=== PATIENT | male | born 1975 | race African-American/Black ===

== ENCOUNTER 2016-12-08 04:30 | Inpatient (IN) | payer OTHER ==
[~2016-12-08] VITALS: Ht 188 cm; Wt 91.6 kg
[2016-12-08 04:30] VITALS: BP 136/80
--- NOTE | 2016-12-08 04:30 | NUR ---
GRADY RUVALCABA. TAKEN TO BED 1
--- NOTE | 2016-12-08 04:30 | NUR ---
41 Y/O M BIBA W/C/O ALOC. PER EMS FOUND IN FRONT YARD BY FAMILY. PT HAS A HX OF DM. TWO ULCERS WITH DISCHARGE, ONE TO DORSAL R FOOT AND ONE TO PLANTAR R FOOT. PT CONTINUES ALTERED AND COMBATIVED.ALERT AND ORIENTED X 1, ABLE TO FOLLOW SIMPLE COMMANDS. VSS. ER MD AT BEDSIDE.
--- NOTE | 2016-12-08 04:36 | NUR ---
Dr. Mcgraw evaluating patient at bedside.
--- NOTE | 2016-12-08 04:40 | NUR ---
ATTEMPTED X 2 TO START AN IV LINE AND DRAW BLOOD. PT WAS RESISTANT AND COMPATIVE RAISING HIS FIST IN THE AIR. ER MD, LAB, CHARGE NURSE AT [facility]. REINFORCED EDUCATION ABOUT TREATMENT. PT REFUSED TO COMPLAY. PER ER MD IM MEDS TO BE GIVEN.
[2016-12-08] MEDS ORDERED: LORazepam 2 MG/ML VIAL IM ONE (05:05)
[2016-12-08] MEDS ORDERED: HALOPERIDOL IM 5 MG/ML VIAL IM ONE (05:05)
[2016-12-08] MEDS ORDERED: diphenhydrAMINE 50 MG/ML VIAL IM ONE (05:05)
[2016-12-08] MEDS ORDERED: HALOPERIDOL IM 5 MG/ML VIAL ONE (05:06)
--- NOTE | 2016-12-08 05:06 | NUR ---
X-Ray at bedside.
[2016-12-08] MEDS ORDERED: LORazepam 2 MG/ML VIAL ONE (05:08)
[2016-12-08] MEDS ORDERED: diphenhydrAMINE 50 MG/ML VIAL ONE (05:08)
[2016-12-08] MEDS ORDERED: ceFAZolin 1,000 MG VIAL ONE (05:39)
--- NOTE | 2016-12-08 05:46 | NUR ---
ADMINISTERED IV ABX TO IV LFA. PATIENT SLEEPING QUIETLY AT THIS TIME. NO S/S OF DISTRESS OR DISCOMFORT. WILL CONTINUE TO MONITOR AND REASSESS.
--- NOTE | 2016-12-08 06:35 | NUR ---
ATTEMPTED TO CATH PT WITH UNSUCESSFULL RESULTS, D/T UNABLE TO OBTAIN URINE FROM PT. WILL TRY AGAIN LATER.
--- NOTE | 2016-12-08 07:10 | NUR ---
Dr. Mcgraw re-evaluating patient at bedside.
[2016-12-08] MEDS ORDERED: NACL 0.9% 2,000 ML IV ONE (07:15)
--- NOTE | 2016-12-08 07:21 | NUR ---
Sherie whitman in EDM - 12/08/16 at 0722 by ROSMERY Pt report given to HERNANDEZ. Transfer of care at this time. PT STABLE, VSS.
--- NOTE | 2016-12-08 07:21 | NUR ---
Pt report given to KEISHA NG. Transfer of care at this time. PT INOCENCIA, REVAS.
--- NOTE | 2016-12-08 07:30 | NUR ---
PT SLEEPING AT THIS TIME. VSS. PT RESPONDS TO PAINFUL STIMULI. IV BOLUS HUNG WIDE OPEN TO 22G IV PER NOV.
[2016-12-08] MEDS ORDERED: HYDROcodone/APAP 5/325 MG 1 TAB TAB PO PRN (07:40)
[2016-12-08] MEDS ORDERED: DOCUSATE SODIUM 100 MG GELCAP PO PRN (07:40)
[2016-12-08] MEDS ORDERED: ACETAMINOPHEN 325 MG TAB PO PRN (07:40)
[2016-12-08] MEDS ORDERED: ONDANSETRON 4 MG/2 ML VIAL IVP PRN (07:40)
[2016-12-08] MEDS ORDERED: MORPHINE SULFATE 2 MG/ML SYR IVP PRN (07:40)
--- NOTE | 2016-12-08 08:14 | NUR ---
Patient will be admitted to care of DR. MCLEOD. Admited to [facility]. Will go to room 116-A. Belongings list completed. Report to KEISHA WELSH. PT'S BG 150 MG/DL.
[2016-12-08 08:30] VITALS: BP 134/78
--- NOTE | 2016-12-08 08:30 | NUR ---
RECEIVED REPORT FROM INSPECTOR FINAL ASSEMBLY CONVEYOR LINE, PT TRANSFERRED ONTO UNIT VIA GURNEY. PT IS SLEEPING. NO S/S OF ACUTE CARDIAC/RESPIRATORY DISTRESS OR DISCOMFORT. SAFETY MEASURES, FALL RISK PRECAUTION, AND CALL LIGHT IN PLACE. WILL INITIATE PLAN OF CARE AND CONTINUE TO MONITOR.
[2016-12-08] MEDS: NACL 0.9% 1,000 ML IV SCH ×2 (08:55→16:16)
[2016-12-08] MEDS: PANTOPRAZOLE 40 MG TABEC PO SCH (09:00)
[2016-12-08] MEDS ORDERED: SACCHAROMYCES 250 MG CAP PO SCH ×2 (09:45→21:00)
--- NOTE | 2016-12-08 11:00 | NUR ---
PT SLEEPING. NO S/S OF ACUTE DISTRESS OR DISCOMFORT. CALL LIGHT WITHIN REACH, WILL CONTINUE TO MONITOR.
[2016-12-08] MEDS ORDERED: MAG SULF 2000 MG/WATER PREMIX 50 ML IV SCH (11:30)
[2016-12-08] MEDS ORDERED: LACTOBACILLUS RHAMNOSUS GG 1 EACH CAP PO SCH (12:30)
--- NOTE | 2016-12-08 13:00 | NUR ---
PT SLEEPING. NO S/S OF ACUTE DISTRESS OR DISCOMFORT. CALL LIGHT WITHIN REACH, WILL CONTINUE TO MONITOR.
[2016-12-08 16:00] VITALS: BP 132/82
--- NOTE | 2016-12-08 16:00 | NUR ---
PT WOKE UP NEEDING TO URINATE, ABLE TO USE URINAL ON HIS OWN. PT QUICKLY WENT BACK TO SLEEP. URINE COLLECTED AND SENT TO LAB FOR UA. PT HAS NO S/S OF ACUTE DISTRESS OR DISCOMFORT. CALL LIGHT WITHIN REACH, WILL CONTINUE TO MONITOR.
--- NOTE | 2016-12-08 17:34 | NUR ---
PT SLEEPING. NO S/S OF ACUTE DISTRESS OR DISCOMFORT. CALL LIGHT WITHIN REACH, WILL CONTINUE TO MONITOR.
--- NOTE | 2016-12-08 19:04 | NUR ---
ENDORSED TO DIRECTOR SAFETY KEISHA LORA. PT HAS NO S/S OF ACUTE DISTRESS OR DISCOMFORT. PT IN STABLE CONDITION.
--- NOTE | 2016-12-08 19:10 | NUR ---
RECEIVED PT SLEEPING, AROUSABLE TO TOUCH, OPENS EYES BUT DROWSY, NO SIGNS OF DISTRESS, IVF INFUSING WELL, RT FOOT DRESSING DRY AND INTACT, SAFETY MEASURES IN PLACE, SIDE RAILS UP AND BED ALARM ON, CALL LIGHT WITHIN REACH.
--- NOTE | 2016-12-08 21:00 | NUR ---
PT AWAKE, AAOX4, DUE MEDICATIONS ADMINISTERED, DINNER TRY PROVIDED, CONSUMED 100%, VOIDING FREELY PER URINAL, WENT BACK TO SLEEP, SIDE RAILS UP AND BED ALARM ON, ALL NEEDS ATTENDED.
[2016-12-09] VITALS: BP 123/76
--- NOTE | 2016-12-09 | NUR ---
PT SLEEPING, NO SIGNS OF DISTRESS, VITAL SIGNS STABLE, IVF INFUSING WELL, CONTINUE TO MONITOR CLOSELY.
[2016-12-09] MEDS: NACL 0.9% 1,000 ML IV SCH ×3 (01:33→12:16)
--- NOTE | 2016-12-09 05:26 | NUR ---
PT SLEEPING, EASILY AROUSABLE, AM LABS DRAWN, BLOOD SUGAR CHECKED WITH 172 RESULT, PT LOOKING FOR HIS CELLPHONE, NONE FOUND ON HIS BELONGINGS, PT GOT UPSET, DIALED THE NUMBER HE GAVE FOR MOLDING FITTER [id number] BUT NO ANSWER, WILL TRY AGAIN LATER, KATELIN RAMIREZ PROVIDED PER REQUEST, PT WENT TO SLEEP AFTER, MONITORED CLOSELY.
[2016-12-09] MEDS ORDERED: DEXTROSE 50% 50 ML SYR IVP PRN (05:55)
--- NOTE | 2016-12-09 06:25 | NUR ---
DR CABALLERO AND DR HAGER SEEN THE PT, WITH ORDER FOR SLIDING SCALE, CALLED ON [facility]ARM[facility] FOR VERIFICATION.
[2016-12-09] MEDS: BLOOD GLUCOSE MONITORING 1 DEV DEV FS SCH ×2 (06:47→12:07)
[2016-12-09] MEDS: INSULIN LISPRO SLIDING SCALE 100 UNITS/ML VIAL SUBQ PRN ×2 (06:50→12:22)
--- NOTE | 2016-12-09 07:15 | NUR ---
PT SLEEPING, NO SIGNS OF DISTRESS, REPORT GIVEN TO RN MURALI FOR CONTINUITY OF CARE.
--- NOTE | 2016-12-09 07:20 | NUR ---
RECEIVED REPORT FROM DAY LIGHT RELIEF OPERATOR RN. PT IS SLEEPING. NO S/S OF ACUTE CARDIAC/RESPIRATORY DISTRESS OR DISCOMFORT. SAFETY MEASURES AND FALL RISK PRECAUTION IN PLACE. CALL LIGHT WITHIN REACH. WILL CONTINUE PLAN OF CARE AND CONTINUE TO MONITOR.
[2016-12-09 08:00] VITALS: BP 140/82
--- NOTE | 2016-12-09 08:55 | NUR ---
FAXED INITIAL REVIEW TO [facility] [phone] PHONE [phone]
[2016-12-09] MEDS ORDERED: LACTOBACILLUS RHAMNOSUS GG 1 EACH CAP PO SCH (09:00)
[2016-12-09] MEDS: PANTOPRAZOLE 40 MG TABEC PO SCH (09:05)
--- NOTE | 2016-12-09 10:22 | NUR ---
PT IS SLEEPING. PT REFUSED HEPARIN. PROVIDED TEACHING ON IMPORTANCE OF HEPARIN, PT STILL REFUSED. PT IS WITHDRAWN, ANSWERING ONLY YES OR NO, OR HEAD NODS. NO S/S OF ACUTE DISTRESS OR DISCOMFORT. CALL LIGHT WITHIN REACH, WILL CONTINUE TO MONITOR.
--- NOTE | 2016-12-09 13:45 | NUR ---
PT WAS SEEN WALKING OUT OF THE HOSPITAL, RN AND CHARGE NURSE ABLE TO STOP THE PATIENT OUTSIDE IN FRONT OF THE HOSPITAL. PT STATES HE CAN NOT STAY AT THE HOSPITAL AND "NEED TO TAKE CARE OF BUSINESS IN THE [place]" AND DOES NOT HAVE TIME TO SIGN AMA. ARM BANDS REMOVED, IV REMOVED AND INTACT. PT HAS NO S/S OF ACUTE DISTRESS OR DISCOMFORT. PT IN STABLE CONDITION. PT PROCEEDED TO THE PARKING LOT TO BE PICKED BY A FAMILY MEMBER. PT ELOPED.
--- NOTE | 2016-12-12 09:04 | NUR ---
WOUND CARE NOTES: UNABLE TO SEE PATIENT, PATIENT ELOPED 12/09/16
== END 2016-12-09 13:45 | disposition left against medical advice (07) | DRG 344 ==
LOC: MED 04:30 → MTU 07:24
PROVIDERS: ADMIT Family Medicine; ATTEND Family Medicine
DX: E11.69 Type 2 diabetes mellitus with other specified complication (principal); M86.8X7 Other osteomyelitis, ankle and foot; E43 Unspecified severe protein-calorie malnutrition; G92 Toxic encephalopathy; E11.621 Type 2 diabetes mellitus with foot ulcer; M00.9 Pyogenic arthritis, unspecified; M84.474A Pathological fracture, right foot, initial encounter for fracture; E11.65 Type 2 diabetes mellitus with hyperglycemia; L03.115 Cellulitis of right lower limb; L97.419 Non-pressure chronic ulcer of right heel and midfoot with unspecified severity; E86.0 Dehydration; E83.42 Hypomagnesemia; E83.51 Hypocalcemia; F15.129 Other stimulant abuse with intoxication, unspecified; D50.9 Iron deficiency anemia, unspecified; L89.899 Pressure ulcer of other site, unspecified stage; Z89.412 Acquired absence of left great toe; Z68.25 Body mass index [BMI] 25.0-25.9, adult; Z89.411 Acquired absence of right great toe; Z89.421 Acquired absence of other right toe(s)

== ENCOUNTER 2023-05-24 10:01 | Inpatient (IN) | payer MEDICAID ==
[~2023-05-24] VITALS: Ht 180.3 cm; Wt 86.2 kg
[2023-05-24] VITALS (7 sets, daily range): BP systolic 163–184; BP diastolic 79–110; PULSE 97–102; RESP 18–20; TEMP 98; O2SAT 99–100
[~2023-05-24 10:01] MED LIST: CALC667C12 PO; NIFE60TE5 PO; SULF-58 PO
[2023-05-24] MEDS ORDERED: CALCIUM CHLORIDE 10% 100 MG/ML SYR IVP ONE (10:30)
[2023-05-24 13:50] LABS: BASOPHILS # (AUTO) 0.1 K/uL (0.00-0.22); BASOPHILS % (AUTO) 1.1 % (0.0-2.0); EOSINOPHILS # (AUTO) 0.1 K/uL (0-0.4); EOSINOPHILS % (AUTO) 1.2 % (0.0-4.0); HEMATOCRIT 28.2 % (36-52); LYMPHOCYTES % (AUTO) 13.8 % (20.5-51.1); MEAN CORPUSCULAR HEMOGLOBIN 27 pg (27-31); MEAN CORPUSCULAR HGB CONC 32 g/dL (33-37); MEAN CORPUSCULAR VOLUME 83.6 fL (80-94); MONOCYTES # (AUTO) 0.6 K/uL (0.8-1.0); MONOCYTES % (AUTO) 8.1 % (1.7-9.3); NEUTROPHILS # (AUTO) 5.5 K/uL (1.8-7.7); NEUTROPHILS % (AUTO) 75.8 % (42.2-75.2); PLATELET COUNT (AUTO) 191 K/uL (140-450); RED BLOOD CELL COUNT(AUTO) 3.37 MIL/uL (4.20-6.10); RED CELL DISTRIBUTION WIDTH 16.7 % (11.6-13.7); WHITE BLOOD COUNT (AUTO) 7.2 K/uL (4.8-10.8)
[2023-05-24 14:14] LABS: ALANINE AMINOTRANSFERASE 35 U/L (12-78); ALBUMIN 3.4 g/dL (3.4-5.0); ALKALINE PHOSPHATASE 85 U/L (50-136); ANION GAP 30.2 (8-16); ASPARTATE AMINOTRANSFERASE 36 U/L (15-37); CALCIUM 7.3 mg/dL (8.5-10.1); CARBON DIOXIDE 15.4 mmol/L (21-32); CHLORIDE 99 mmol/L (98-107); GFR ARICAN-AMERICAN 3 mL/min (>90); GFR NON ARICAN-AMERICAN 2 mL/min (>90); GLUCOSE 68 mg/dL (74-106); LIPASE 95 U/L (73-393); SODIUM SERUM 136 mmol/L (136-145); TOTAL BILIRUBIN 0.3 mg/dL (0.0-1.0); TOTAL PROTEIN, SERUM 8.8 g/dL (6.4-8.2)
[2023-05-24 14:20] LABS: POTASSIUM 8.6 mmol/L (3.5-5.1); UREA NITROGEN, BLOOD 129 mg/dL (7-18)
[2023-05-24] MEDS ORDERED: ENALAPRILAT 2.5 MG/2 ML VIAL IVP ONE (16:25)
[2023-05-24] MEDS ORDERED: DOCUSATE SODIUM 100 MG GELCAP PO PRN (19:45)
[2023-05-24] MEDS ORDERED: DEXTROSE 50% 50 ML SYR IVP PRN (19:45)
[2023-05-24] MEDS ORDERED: ZOLPIDEM 5 MG TAB PO PRN (19:45)
[2023-05-24] MEDS ORDERED: guaiFENesin DM 200/20 MG-10 ML 10 ML UDC PO PRN (19:45)
[2023-05-24] MEDS ORDERED: ONDANSETRON 4 MG/2 ML VIAL IM/IVP PRN (19:45)
[2023-05-24] MEDS ORDERED: INSULIN LISPRO SLIDING SCALE 100 UNITS/ML VIAL SUBQ PRN (19:45)
[2023-05-24] MEDS ORDERED: POTASSIUM CHLORIDE 10 MEQ TABER PO PRN (19:45)
[2023-05-24 20:14] LABS: INR 0.99 (0.8-1.2); PARTIAL THROMBOPLASTIN TIME 32.3 secs (22-35.6); PROTHROMBIN TIME 10.4 secs (10.8-13.4)
[2023-05-24 21:10] LABS: CHOL/HDL RATIO 1.3 (1-4.5); FREE T4 (FREE THYROXINE) 0.94 ng/dL (0.76-1.46); MAGNESIUM 3.2 mg/dL (1.8-2.4); THYROID STIMULATING HORMONE 3.85 uIU/mL (0.34-3.74)
[2023-05-24] MEDS: BLOOD GLUCOSE MONITORING 1 DEV DEV FS SCH (21:31)
[2023-05-24 21:32] LABS: PHOSPHORUS 16.7 mg/dL (2.5-4.9)
[2023-05-24] MEDS ORDERED: CALCIUM ACETATE 667 MG TAB PO ONE (23:50)
[2023-05-25] VITALS (9 sets, daily range): BP systolic 145–188; BP diastolic 96–109; PULSE 88–107; RESP 18–20; TEMP 97.7–98.8; O2SAT 95–99
[2023-05-25] MEDS: hydrALAZINE 20 MG/ML VIAL IVP PRN ×3 (01:06→23:23)
[2023-05-25] MEDS: ACETAMINOPHEN 325 MG TAB PO PRN (01:07)
[2023-05-25] MEDS: BLOOD GLUCOSE MONITORING 1 DEV DEV FS SCH ×4 (06:10→21:19)
[2023-05-25] MEDS: HYDROcodone/APAP 7.5/325 MG 1 TAB PO PRN ×2 (06:37→21:15)
[2023-05-25 06:39] LABS: BASOPHILS # (AUTO) 0.1 K/uL (0.00-0.22); BASOPHILS % (AUTO) 1.2 % (0.0-2.0); EOSINOPHILS # (AUTO) 0.1 K/uL (0-0.4); EOSINOPHILS % (AUTO) 2.2 % (0.0-4.0); HEMATOCRIT 26.7 % (36-52); HEMOGLOBIN 8.7 g/dL (12.0-18.0); LYMPHOCYTES # (AUTO) 0.6 K/uL (2.0-11.5); LYMPHOCYTES % (AUTO) 13.3 % (20.5-51.1); MEAN CORPUSCULAR HEMOGLOBIN 27 pg (27-31); MEAN CORPUSCULAR HGB CONC 33 g/dL (33-37); MEAN CORPUSCULAR VOLUME 82.6 fL (80-94); MONOCYTES # (AUTO) 0.6 K/uL (0.8-1.0); MONOCYTES % (AUTO) 11.5 % (1.7-9.3); NEUTROPHILS # (AUTO) 3.5 K/uL (1.8-7.7); NEUTROPHILS % (AUTO) 71.8 % (42.2-75.2); PLATELET COUNT (AUTO) 169 K/uL (140-450); RED BLOOD CELL COUNT(AUTO) 3.23 MIL/uL (4.20-6.10); RED CELL DISTRIBUTION WIDTH 16.7 % (11.6-13.7); WHITE BLOOD COUNT (AUTO) 4.9 K/uL (4.8-10.8)
[2023-05-25 06:53] LABS: ANION GAP 21.7 (8-16); CALCIUM 8.3 mg/dL (8.5-10.1); CARBON DIOXIDE 22.5 mmol/L (21-32); POTASSIUM 5.2 mmol/L (3.5-5.1)
[2023-05-25 06:56] LABS: CREATININE 17.7 mg/dL (0.6-1.3)
[2023-05-25] MEDS: CALCIUM ACETATE 667 MG TAB PO SCH ×3 (09:03→17:00)
[2023-05-25] MEDS: NIFEdipine 60 MG TABER PO SCH (09:03)
[2023-05-25] MEDS: PANTOPRAZOLE 40 MG TABEC PO SCH (09:04)
[2023-05-25] MEDS: ALUMINUM HYDROXIDE 64 MG/ML BOTTLE PO SCH ×2 (13:00→17:00)
[2023-05-25 14:04] LABS: BARBITURATE, URINE NEGATIVE ng/ml (NEG <=200)
[2023-05-25 14:05] LABS: AMPHETAMINE, URINE POSITIVE ng/ml (NEG <=1000); BENZODIAZEPINE, URINE NEGATIVE ng/mL (NEG <=200); CANNABINOID, URINE NEGATIVE ng/mL (NEG <=50); COCAINE, URINE NEGATIVE ng/mL (NEG <=300); OPIATE, URINE NEGATIVE ng/mL (NEG <=2000); PHENCYCLIDINE SCREEN,URINE NEGATIVE ng/mL (NEG <=25)
[2023-05-26 04:00] VITALS: BP 157/100; PULSE 101; PULSE 94; RESP 18; TEMP 98.8; O2SAT 96
[2023-05-26] MEDS: ACETAMINOPHEN 325 MG TAB PO PRN (04:42)
[2023-05-26] MEDS: hydrALAZINE 20 MG/ML VIAL IVP PRN (05:52)
[2023-05-26 05:56] LABS: BASOPHILS # (AUTO) 0.1 K/uL (0.00-0.22); BASOPHILS % (AUTO) 1.2 % (0.0-2.0); EOSINOPHILS # (AUTO) 0.1 K/uL (0-0.4); EOSINOPHILS % (AUTO) 1.3 % (0.0-4.0); HEMOGLOBIN 9.2 g/dL (12.0-18.0); LYMPHOCYTES # (AUTO) 0.8 K/uL (2.0-11.5); LYMPHOCYTES % (AUTO) 17.7 % (20.5-51.1); MEAN CORPUSCULAR HEMOGLOBIN 27 pg (27-31); MEAN CORPUSCULAR HGB CONC 33 g/dL (33-37); MEAN CORPUSCULAR VOLUME 82.7 fL (80-94); MONOCYTES # (AUTO) 0.6 K/uL (0.8-1.0); MONOCYTES % (AUTO) 12.9 % (1.7-9.3); NEUTROPHILS # (AUTO) 3.1 K/uL (1.8-7.7); NEUTROPHILS % (AUTO) 66.9 % (42.2-75.2); PLATELET COUNT (AUTO) 151 K/uL (140-450); RED BLOOD CELL COUNT(AUTO) 3.39 MIL/uL (4.20-6.10); RED CELL DISTRIBUTION WIDTH 15.7 % (11.6-13.7); WHITE BLOOD COUNT (AUTO) 4.6 K/uL (4.8-10.8)
[2023-05-26 05:57] LABS: ANION GAP 17.8 (8-16); CALCIUM 8.5 mg/dL (8.5-10.1); CARBON DIOXIDE 24.8 mmol/L (21-32); POTASSIUM 4.6 mmol/L (3.5-5.1)
[2023-05-26 06:16] LABS: CREATININE 13.6 mg/dL (0.6-1.3)
[2023-05-26] MEDS: BLOOD GLUCOSE MONITORING 1 DEV DEV FS SCH (06:44)
[2023-05-26 06:52] VITALS: BP 168/99; PULSE 101
[2023-05-26 08:00] VITALS: RESP 18; TEMP 96.7; O2SAT 97
[2023-05-26 08:08] LABS: T4 (THYROXINE) 6.4 ug/dL (4.5-12.0)
[2023-05-26] MEDS: ALUMINUM HYDROXIDE 64 MG/ML BOTTLE PO SCH (08:20)
[2023-05-26] MEDS: NIFEdipine 60 MG TABER PO SCH (08:50)
[2023-05-26] MEDS: CALCIUM ACETATE 667 MG TAB PO SCH (08:51)
[2023-05-26] MEDS: PANTOPRAZOLE 40 MG TABEC PO SCH (08:51)
[2023-05-26] MEDS ORDERED: TRA200 PO (10:56)
[2023-05-26] MEDS ORDERED: SULF-58 PO (10:58)
[2023-05-26] MEDS ORDERED: GAUZE TP SCH (13:00)
[2023-05-26] MEDS ORDERED: LABETALOL 200 MG TAB PO SCH (21:00)
== END 2023-05-26 14:00 | disposition home health service (06) | DRG 194 ==
LOC: MED 10:01 → MTU 14:38
PROVIDERS: ADMIT Family Medicine; ATTEND Family Medicine
PROC: 5A1D70Z Performance of Urinary Filtration, Intermittent, Less than 6 Hours Per Day (ICD-10-PCS; principal; 2023-05-24)
PROC: 02HV33Z Insertion of Infusion Device into Superior Vena Cava, Percutaneous Approach (ICD-10-PCS; 2023-05-24)
PROC: B548ZZA Ultrasonography of Superior Vena Cava, Guidance (ICD-10-PCS; 2023-05-24)
PROC: 5A1D70Z Performance of Urinary Filtration, Intermittent, Less than 6 Hours Per Day (ICD-10-PCS; 2023-05-25)
DX: I13.2 Hypertensive heart and chronic kidney disease with heart failure and with stage 5 chronic kidney disease, or end stage renal disease (principal); N17.0 Acute kidney failure with tubular necrosis; J96.01 Acute respiratory failure with hypoxia; D63.8 Anemia in other chronic diseases classified elsewhere; E83.39 Other disorders of phosphorus metabolism; N18.6 End stage renal disease; E11.621 Type 2 diabetes mellitus with foot ulcer; I50.43 Acute on chronic combined systolic (congestive) and diastolic (congestive) heart failure; E87.5 Hyperkalemia; E11.22 Type 2 diabetes mellitus with diabetic chronic kidney disease; Z99.2 Dependence on renal dialysis; Z91.199 Patient's noncompliance with other medical treatment and regimen due to unspecified reason; Z89.511 Acquired absence of right leg below knee; Z59.00 Homelessness unspecified; Z91.148 Patient's other noncompliance with medication regimen for other reason; Z59.01 Sheltered homelessness
CPT/HCPCS: 36415; 71045; 73630; 80048; 80053; 80305; 82150; 82948; 83036; 83690; 83735; 83880; 84100; 84436; 84439; 84443; 84479; 84484; 85025; 85610; 85730; 87081; 96374; 99285; J0360; J1644; J1815; J3490; Q0092

== ENCOUNTER 2023-06-03 17:34 | Emergency (ER) | payer MEDICAID ==
[~2023-06-03] VITALS: Ht 180.3 cm; Wt 86.2 kg
[~2023-06-03 17:34] MED LIST changes: +TRA200 PO
[2023-06-03 17:49] VITALS: BP 150/75; PULSE 122; RESP 22; TEMP 97.3; O2SAT 98
[2023-06-03 19:19] VITALS: BP 150/75; PULSE 98; RESP 22; TEMP 97.3; O2SAT 98
== END 2023-06-03 19:23 | disposition home or self-care (01) ==
LOC: MED 17:34
DX: M79.605 Pain in left leg (principal); E11.22 Type 2 diabetes mellitus with diabetic chronic kidney disease; I13.2 Hypertensive heart and chronic kidney disease with heart failure and with stage 5 chronic kidney disease, or end stage renal disease; I50.9 Heart failure, unspecified; N18.6 End stage renal disease; Z99.2 Dependence on renal dialysis; Z79.899 Other long term (current) drug therapy; Z79.2 Long term (current) use of antibiotics
CPT/HCPCS: 73552; 73630; 99284; Q0092

== ENCOUNTER 2023-06-10 01:05 | Inpatient (IN) | payer MEDICAID ==
[~2023-06-10] VITALS: Ht 177.8 cm; Wt 97.5 kg
[2023-06-10] VITALS (9 sets, daily range): BP systolic 148–176; BP diastolic 79–86; PULSE 84–119; RESP 14–20; TEMP 97.2–97.6; O2SAT 94–100
[2023-06-10 02:36] LABS: BASOPHILS % (AUTO) 0.6 % (0.0-2.0); EOSINOPHILS # (AUTO) 0.2 K/uL (0-0.4); EOSINOPHILS % (AUTO) 2.2 % (0.0-4.0); HEMATOCRIT 20.6 % (36-52); LYMPHOCYTES # (AUTO) 1.2 K/uL (2.0-11.5); LYMPHOCYTES % (AUTO) 15.3 % (20.5-51.1); MEAN CORPUSCULAR HEMOGLOBIN 27 pg (27-31); MEAN CORPUSCULAR HGB CONC 33 g/dL (33-37); MEAN CORPUSCULAR VOLUME 83.6 fL (80-94); MONOCYTES # (AUTO) 0.5 K/uL (0.8-1.0); MONOCYTES % (AUTO) 6.6 % (1.7-9.3); NEUTROPHILS # (AUTO) 5.8 K/uL (1.8-7.7); NEUTROPHILS % (AUTO) 75.3 % (42.2-75.2); PLATELET COUNT (AUTO) 177 K/uL (140-450); RED BLOOD CELL COUNT(AUTO) 2.47 MIL/uL (4.20-6.10); RED CELL DISTRIBUTION WIDTH 16.1 % (11.6-13.7); WHITE BLOOD COUNT (AUTO) 7.6 K/uL (4.8-10.8)
[2023-06-10 02:46] LABS: HEMOGLOBIN 6.7 g/dL (12.0-18.0)
[2023-06-10 02:47] LABS: ALBUMIN 3.5 g/dL (3.4-5.0); ANION GAP 30.5 (8-16); CALCIUM 7.3 mg/dL (8.5-10.1); CARBON DIOXIDE 15.4 mmol/L (21-32); TOTAL BILIRUBIN 0.3 mg/dL (0.0-1.0); TOTAL PROTEIN, SERUM 8.9 g/dL (6.4-8.2)
[2023-06-10 02:52] LABS: LACTIC ACID 0.4 mmol/L (0.4-2.0); POTASSIUM 7.9 mmol/L (3.5-5.1)
[2023-06-10] MEDS ORDERED: CALCIUM CHLORIDE 10% 100 MG/ML SYR IVP ONE (02:55)
[2023-06-10] MEDS ORDERED: DEXTROSE 50% 50 ML SYR IVP ONE ×2 (02:55→06:20)
[2023-06-10] MEDS ORDERED: INSULIN REGULAR, HUMAN 100 UNIT/ML VIAL IV ONE (02:55)
[2023-06-10] MEDS ORDERED: SODIUM BICARBONATE 8.4% PFS 50 MEQ/50 ML SYR IVP ONE (02:55)
[2023-06-10] MEDS ORDERED: LORazepam 2 MG/ML VIAL IVP ONE (04:30)
[2023-06-10] MEDS ORDERED: INSULIN LISPRO SLIDING SCALE 100 UNITS/ML VIAL SUBQ PRN (05:50)
[2023-06-10 09:04] LABS: ALBUMIN 3.3 g/dL (3.4-5.0); ANION GAP 30.8 (8-16); CALCIUM 7.7 mg/dL (8.5-10.1); TOTAL BILIRUBIN 0.3 mg/dL (0.0-1.0); TOTAL PROTEIN, SERUM 8.6 g/dL (6.4-8.2)
[2023-06-10 09:08] LABS: POTASSIUM 7.8 mmol/L (3.5-5.1)
[2023-06-10 09:09] LABS: CREATININE 21.6 mg/dL (0.6-1.3)
[2023-06-10] MEDS: SODIUM POLYSTYRENE 15 GM/60 ML UDBTL PO SCH ×2 (10:43→14:00)
[2023-06-10] MEDS: EPOETIN ALFA 10,000 UNITS/ML VIAL SUBQ SCH (12:00)
[2023-06-10] MEDS: ALBUTEROL 0.083% 2.5 MG/3 ML NEBU INH SCH ×2 (12:16→15:11)
[2023-06-10] MEDS ORDERED: ALBUTEROL 0.083% 2.5 MG/3 ML NEBU INH SCH ×2 (15:07→17:15)
[2023-06-10] MEDS ORDERED: DEXTROSE 50% 50 ML SYR IVP PRN (16:45)
[2023-06-10 16:53] LABS: ALBUMIN 3.2 g/dL (3.4-5.0); ANION GAP 26.1 (8-16); CALCIUM 7.5 mg/dL (8.5-10.1); CARBON DIOXIDE 18.3 mmol/L (21-32); POTASSIUM 5.4 mmol/L (3.5-5.1); TOTAL BILIRUBIN 0.5 mg/dL (0.0-1.0); TOTAL PROTEIN, SERUM 8.5 g/dL (6.4-8.2)
[2023-06-10 16:56] LABS: CREATININE 16.4 mg/dL (0.6-1.3)
[2023-06-10] MEDS: BLOOD GLUCOSE MONITORING 1 DEV DEV FS SCH ×2 (20:56→21:00)
[2023-06-10 21:35] LABS: ALBUMIN 3.2 g/dL (3.4-5.0); ANION GAP 21.4 (8-16); CALCIUM 7.5 mg/dL (8.5-10.1); POTASSIUM 5.4 mmol/L (3.5-5.1); TOTAL BILIRUBIN 0.4 mg/dL (0.0-1.0); TOTAL PROTEIN, SERUM 8.6 g/dL (6.4-8.2)
[2023-06-10 21:42] LABS: CREATININE 17.3 mg/dL (0.6-1.3)
[2023-06-11] VITALS (8 sets, daily range): BP systolic 138–150; BP diastolic 74–90; PULSE 86–102; RESP 18–19; TEMP 96.3–97.9; O2SAT 93–98
[2023-06-11 06:26] LABS: BASOPHILS % (AUTO) 0.4 % (0.0-2.0); EOSINOPHILS # (AUTO) 0.2 K/uL (0-0.4); EOSINOPHILS % (AUTO) 2.6 % (0.0-4.0); HEMATOCRIT 25.6 % (36-52); HEMOGLOBIN 8.4 g/dL (12.0-18.0); LYMPHOCYTES # (AUTO) 0.7 K/uL (2.0-11.5); LYMPHOCYTES % (AUTO) 10.6 % (20.5-51.1); MEAN CORPUSCULAR HEMOGLOBIN 27 pg (27-31); MEAN CORPUSCULAR HGB CONC 33 g/dL (33-37); MEAN CORPUSCULAR VOLUME 81.9 fL (80-94); MONOCYTES # (AUTO) 0.6 K/uL (0.8-1.0); MONOCYTES % (AUTO) 9.4 % (1.7-9.3); NEUTROPHILS # (AUTO) 4.9 K/uL (1.8-7.7); PLATELET COUNT (AUTO) 150 K/uL (140-450); RED BLOOD CELL COUNT(AUTO) 3.12 MIL/uL (4.20-6.10); RED CELL DISTRIBUTION WIDTH 15.5 % (11.6-13.7); WHITE BLOOD COUNT (AUTO) 6.3 K/uL (4.8-10.8)
[2023-06-11 06:38] LABS: ANION GAP 23.3 (8-16); CALCIUM 7.8 mg/dL (8.5-10.1)
[2023-06-11 06:47] LABS: CREATININE 17.6 mg/dL (0.6-1.3)
[2023-06-11 06:48] LABS: POTASSIUM 6.3 mmol/L (3.5-5.1)
[2023-06-11] MEDS: BLOOD GLUCOSE MONITORING 1 DEV DEV FS SCH ×4 (07:30→21:39)
[2023-06-11] MEDS: CALCIUM ACETATE 667 MG TAB PO SCH ×3 (09:53→17:00)
[2023-06-11] MEDS: NIFEdipine 60 MG TABER PO SCH (09:53)
[2023-06-11] MEDS: ACETAMINOPHEN EXTRA STRENGTH 500 MG TAB PO PRN (10:24)
[2023-06-11] MEDS: LORazepam 2 MG/ML VIAL IVP PRN (12:39)
[2023-06-11] MEDS: INSULIN LISPRO SLIDING SCALE 100 UNITS/ML VIAL SUBQ PRN ×2 (21:31→21:39)
[2023-06-12] VITALS (7 sets, daily range): BP systolic 142–162; BP diastolic 80–90; PULSE 79–109; RESP 17–20; TEMP 96.7–98; O2SAT 95–100
[2023-06-12] MEDS: ACETAMINOPHEN EXTRA STRENGTH 500 MG TAB PO PRN ×2 (03:11→23:47)
[2023-06-12] MEDS: BLOOD GLUCOSE MONITORING 1 DEV DEV FS SCH ×4 (06:59→22:20)
[2023-06-12] MEDS ORDERED: MORPHINE SULFATE 2 MG/ML SYR IVP PRN (08:00)
[2023-06-12] MEDS: NIFEdipine 60 MG TABER PO SCH (09:04)
[2023-06-12] MEDS: CALCIUM ACETATE 667 MG TAB PO SCH ×3 (09:04→16:58)
[2023-06-12] MEDS: MORPHINE SULFATE 2 MG/ML SYR IM PRN ×2 (09:29→17:00)
[2023-06-12 11:18] LABS: APPEARANCE,URINE CLEAR (CLEAR); BILIRUBIN,URINE NEGATIVE (NEGATIVE); BLOOD, URINE 2+ (NEGATIVE); COLOR,URINE YELLOW (YELLOW); LEUKOCYTE ESTERASE ,URINE 1+ (NEGATIVE); NITRITE, URINE NEGATIVE (NEGATIVE); PH,URINE 8.5 (5.0-9.0); PROTEIN,URINE 2+ (NEGATIVE); UGLUCOSE 1+ (NEGATIVE); UROBILINOGEN,URINE 0.2 EU/dL (0.2 - 1)
[2023-06-12] MEDS: LORazepam 2 MG/ML VIAL IVP PRN (11:33)
[2023-06-12 12:02] LABS: BASOPHILS # (AUTO) 0.1 K/uL (0.00-0.22); BASOPHILS % (AUTO) 0.8 % (0.0-2.0); EOSINOPHILS # (AUTO) 0.1 K/uL (0-0.4); EOSINOPHILS % (AUTO) 1.1 % (0.0-4.0); HEMATOCRIT 26.8 % (36-52); HEMOGLOBIN 8.6 g/dL (12.0-18.0); LYMPHOCYTES # (AUTO) 0.9 K/uL (2.0-11.5); LYMPHOCYTES % (AUTO) 7.6 % (20.5-51.1); MEAN CORPUSCULAR HEMOGLOBIN 26 pg (27-31); MEAN CORPUSCULAR HGB CONC 32 g/dL (33-37); MONOCYTES # (AUTO) 0.8 K/uL (0.8-1.0); MONOCYTES % (AUTO) 7.1 % (1.7-9.3); NEUTROPHILS # (AUTO) 9.7 K/uL (1.8-7.7); NEUTROPHILS % (AUTO) 83.4 % (42.2-75.2); PLATELET COUNT (AUTO) 146 K/uL (140-450); RED BLOOD CELL COUNT(AUTO) 3.26 MIL/uL (4.20-6.10); RED CELL DISTRIBUTION WIDTH 16.2 % (11.6-13.7); WHITE BLOOD COUNT (AUTO) 11.6 K/uL (4.8-10.8)
[2023-06-12 12:13] LABS: ANION GAP 23.6 (8-16); CARBON DIOXIDE 22.6 mmol/L (21-32)
[2023-06-12 12:16] LABS: POTASSIUM 6.2 mmol/L (3.5-5.1)
[2023-06-12 12:17] LABS: CREATININE 15.3 mg/dL (0.6-1.3)
[2023-06-12 12:26] LABS: RBC,URINE 11-20 (MOD) /HPF (0-5)
[2023-06-12 12:27] LABS: BACTERIA,URINE 2+ /HPF (None Seen); SQUAMOUS EPITHELIAL CELL,UR 0-3 (FEW) /LPF (0-3 (FEW)); WBC,URINE 16-25 (MOD) /HPF (0-5)
[2023-06-12 12:50] LABS: AMPHETAMINE, URINE NEGATIVE ng/ml (NEG <=1000); BARBITURATE, URINE NEGATIVE ng/ml (NEG <=200); BENZODIAZEPINE, URINE NEGATIVE ng/mL (NEG <=200)
[2023-06-12 12:51] LABS: CANNABINOID, URINE NEGATIVE ng/mL (NEG <=50); COCAINE, URINE NEGATIVE ng/mL (NEG <=300); OPIATE, URINE NEGATIVE ng/mL (NEG <=2000); PHENCYCLIDINE SCREEN,URINE NEGATIVE ng/mL (NEG <=25)
[2023-06-12] MEDS: GAUZE TP SCH (12:59)
[2023-06-12] MEDS ORDERED: ALTEPLASE 100 MG VIAL IV ONE (15:00)
[2023-06-12] MEDS ORDERED: ALTEPLASE 2 MG VIAL MC SCH (15:04)
[2023-06-12] MEDS ORDERED: WATER STERILE 20 ML MC ONE (15:09)
[2023-06-12] MEDS ORDERED: LORazepam 2 MG/ML VIAL IM/IVP PRN (18:10)
[2023-06-12] MEDS ORDERED: MORPHINE SULFATE 2 MG/ML SYR IM/IVP PRN (18:10)
[2023-06-13] VITALS (11 sets, daily range): BP systolic 115–157; BP diastolic 61–90; PULSE 102–114; RESP 16–20; TEMP 97.6–98.6; O2SAT 93–100
[2023-06-13] MEDS: BLOOD GLUCOSE MONITORING 1 DEV DEV FS SCH ×4 (06:17→20:44)
[2023-06-13 06:38] LABS: BASOPHILS % (AUTO) 0.4 % (0.0-2.0); EOSINOPHILS # (AUTO) 0.1 K/uL (0-0.4); EOSINOPHILS % (AUTO) 0.8 % (0.0-4.0); HEMATOCRIT 27.8 % (36-52); HEMOGLOBIN 9.1 g/dL (12.0-18.0); LYMPHOCYTES % (AUTO) 12.1 % (20.5-51.1); MEAN CORPUSCULAR HEMOGLOBIN 27 pg (27-31); MEAN CORPUSCULAR HGB CONC 33 g/dL (33-37); MONOCYTES # (AUTO) 0.8 K/uL (0.8-1.0); MONOCYTES % (AUTO) 9.8 % (1.7-9.3); NEUTROPHILS # (AUTO) 6.3 K/uL (1.8-7.7); NEUTROPHILS % (AUTO) 76.9 % (42.2-75.2); PLATELET COUNT (AUTO) 162 K/uL (140-450); RED BLOOD CELL COUNT(AUTO) 3.35 MIL/uL (4.20-6.10); RED CELL DISTRIBUTION WIDTH 15.7 % (11.6-13.7); WHITE BLOOD COUNT (AUTO) 8.2 K/uL (4.8-10.8)
[2023-06-13 06:53] LABS: ANION GAP 18.6 (8-16); CALCIUM 8.6 mg/dL (8.5-10.1); CARBON DIOXIDE 26.1 mmol/L (21-32); POTASSIUM 4.7 mmol/L (3.5-5.1)
[2023-06-13 06:58] LABS: CREATININE 11.8 mg/dL (0.6-1.3)
[2023-06-13] MEDS: levoFLOXacin 250 MG TAB PO SCH (08:31)
[2023-06-13] MEDS: NIFEdipine 60 MG TABER PO SCH (08:31)
[2023-06-13] MEDS: CALCIUM ACETATE 667 MG TAB PO SCH ×3 (08:31→16:07)
[2023-06-13] MEDS: EPOETIN ALFA 10,000 UNITS/ML VIAL SUBQ SCH (08:34)
[2023-06-13] MEDS ORDERED: CEPH-588 PO (09:53)
[2023-06-13] MEDS: GAUZE TP SCH (12:25)
[2023-06-14 04:00] VITALS: BP 170/93; PULSE 98; RESP 16; TEMP 97.4; O2SAT 96
[2023-06-14 07:06] LABS: BASOPHILS # (AUTO) 0.1 K/uL (0.00-0.22); BASOPHILS % (AUTO) 0.7 % (0.0-2.0); EOSINOPHILS # (AUTO) 0.1 K/uL (0-0.4); EOSINOPHILS % (AUTO) 1.4 % (0.0-4.0); HEMATOCRIT 24.6 % (36-52); LYMPHOCYTES # (AUTO) 0.8 K/uL (2.0-11.5); LYMPHOCYTES % (AUTO) 11.6 % (20.5-51.1); MEAN CORPUSCULAR HEMOGLOBIN 27 pg (27-31); MEAN CORPUSCULAR HGB CONC 33 g/dL (33-37); MEAN CORPUSCULAR VOLUME 82.6 fL (80-94); MONOCYTES # (AUTO) 0.8 K/uL (0.8-1.0); MONOCYTES % (AUTO) 10.6 % (1.7-9.3); NEUTROPHILS # (AUTO) 5.4 K/uL (1.8-7.7); NEUTROPHILS % (AUTO) 75.7 % (42.2-75.2); PLATELET COUNT (AUTO) 123 K/uL (140-450); RED BLOOD CELL COUNT(AUTO) 2.98 MIL/uL (4.20-6.10); RED CELL DISTRIBUTION WIDTH 15.4 % (11.6-13.7); WHITE BLOOD COUNT (AUTO) 7.1 K/uL (4.8-10.8)
[2023-06-14 07:13] VITALS: O2SAT 99
[2023-06-14 07:23] LABS: ANION GAP 15.1 (8-16); CALCIUM 8.9 mg/dL (8.5-10.1); CARBON DIOXIDE 25.9 mmol/L (21-32)
[2023-06-14] MEDS: BLOOD GLUCOSE MONITORING 1 DEV DEV FS SCH ×2 (07:23→11:11)
[2023-06-14 07:32] LABS: CREATININE 10.9 mg/dL (0.6-1.3)
[2023-06-14] MEDS: CALCIUM ACETATE 667 MG TAB PO SCH ×2 (08:30→12:10)
[2023-06-14] MEDS: NIFEdipine 60 MG TABER PO SCH (08:31)
[2023-06-14] MEDS: levoFLOXacin 250 MG TAB PO SCH (08:31)
[2023-06-14 08:43] VITALS: PULSE 99; RESP 20; O2SAT 99
[2023-06-14 08:45] VITALS: TEMP 97.4
[2023-06-14] MEDS: ACETAMINOPHEN EXTRA STRENGTH 500 MG TAB PO PRN (10:52)
[2023-06-14] MEDS: GAUZE TP SCH (12:10)
[2023-06-14] MEDS ORDERED: SODIUM ZIRCONIUM CYCLOSILICATE 10 GM POWD.PACK PO SCH (15:00)
== END 2023-06-14 15:15 | disposition home or self-care (01) | DRG 425 ==
LOC: MED 01:05 → MTU 06:02
PROVIDERS: ADMIT Family Medicine; ATTEND Family Medicine
PROC: 5A09357 Assistance with Respiratory Ventilation, Less than 24 Consecutive Hours, Continuous Positive Airway Pressure (ICD-10-PCS; principal; 2023-06-10)
PROC: 30233N1 Transfusion of Nonautologous Red Blood Cells into Peripheral Vein, Percutaneous Approach (ICD-10-PCS; 2023-06-10)
PROC: 5A1D70Z Performance of Urinary Filtration, Intermittent, Less than 6 Hours Per Day (ICD-10-PCS; 2023-06-10)
PROC: 5A1D70Z Performance of Urinary Filtration, Intermittent, Less than 6 Hours Per Day (ICD-10-PCS; 2023-06-11)
PROC: 5A1D70Z Performance of Urinary Filtration, Intermittent, Less than 6 Hours Per Day (ICD-10-PCS; 2023-06-12)
PROC: 5A1D70Z Performance of Urinary Filtration, Intermittent, Less than 6 Hours Per Day (ICD-10-PCS; 2023-06-13)
DX: E87.5 Hyperkalemia (principal); I13.2 Hypertensive heart and chronic kidney disease with heart failure and with stage 5 chronic kidney disease, or end stage renal disease; N18.6 End stage renal disease; E11.649 Type 2 diabetes mellitus with hypoglycemia without coma; E46 Unspecified protein-calorie malnutrition; D63.1 Anemia in chronic kidney disease; E11.22 Type 2 diabetes mellitus with diabetic chronic kidney disease; I50.9 Heart failure, unspecified; E11.65 Type 2 diabetes mellitus with hyperglycemia; Z99.2 Dependence on renal dialysis; Z89.512 Acquired absence of left leg below knee; Z89.511 Acquired absence of right leg below knee; Z59.00 Homelessness unspecified; Z68.30 Body mass index [BMI] 30.0-30.9, adult; Z79.4 Long term (current) use of insulin
CPT/HCPCS: 36415; 36430; 71045; 80048; 80053; 80305; 81001; 82948; 83036; 83605; 83735; 85025; 86886; 86900; 86901; 86920; 87040; 87081; 87086; 87186; 87340; 93005; 96374; 96375; 96376; 99291; J0696; J0885; J1644; J1815; J1956; J2060; J2270; J2997; J7060; J7613; P9016; Q0092

== ENCOUNTER 2023-06-19 17:53 | Inpatient (IN) | payer MEDICAID ==
[~2023-06-19] VITALS: Ht 188 cm; Wt 107.5 kg
[~2023-06-19 17:53] MED LIST changes: +CEPH-588 PO
[2023-06-19 17:57] VITALS: BP 156/114; PULSE 99; RESP 20; TEMP 98.8; O2SAT 98
[2023-06-19] MEDS ORDERED: HYDROmorphone PFS 2 MG/ML SYR IVP ONE (18:25)
[2023-06-19 19:08] LABS: BASOPHILS % (AUTO) 0.6 % (0.0-2.0); EOSINOPHILS # (AUTO) 0.2 K/uL (0-0.4); EOSINOPHILS % (AUTO) 3.2 % (0.0-4.0); HEMATOCRIT 21.9 % (36-52); HEMOGLOBIN 7.2 g/dL (12.0-18.0); LYMPHOCYTES # (AUTO) 0.9 K/uL (2.0-11.5); LYMPHOCYTES % (AUTO) 12.8 % (20.5-51.1); MEAN CORPUSCULAR HEMOGLOBIN 27 pg (27-31); MEAN CORPUSCULAR HGB CONC 33 g/dL (33-37); MEAN CORPUSCULAR VOLUME 83.1 fL (80-94); MONOCYTES # (AUTO) 0.7 K/uL (0.8-1.0); MONOCYTES % (AUTO) 9.6 % (1.7-9.3); NEUTROPHILS # (AUTO) 5.1 K/uL (1.8-7.7); NEUTROPHILS % (AUTO) 73.8 % (42.2-75.2); PLATELET COUNT (AUTO) 203 K/uL (140-450); RED BLOOD CELL COUNT(AUTO) 2.64 MIL/uL (4.20-6.10); RED CELL DISTRIBUTION WIDTH 15.9 % (11.6-13.7); WHITE BLOOD COUNT (AUTO) 6.8 K/uL (4.8-10.8)
[2023-06-19 19:25] LABS: ANION GAP 24.9 (8-16); CALCIUM 8.4 mg/dL (8.5-10.1); CARBON DIOXIDE 19.2 mmol/L (21-32)
[2023-06-19 19:33] LABS: POTASSIUM 8.1 mmol/L (3.5-5.1)
[2023-06-19 19:34] LABS: CREATININE 20.4 mg/dL (0.6-1.3)
[2023-06-19] MEDS ORDERED: CALCIUM GLUC 1 GM/50 mL NS BAG 50 ML IV ONE (19:45)
[2023-06-19] MEDS ORDERED: DEXTROSE 50% 50 ML SYR IVP ONE (19:45)
[2023-06-19] MEDS ORDERED: INSULIN REGULAR, HUMAN 100 UNIT/ML VIAL IVP ONE (19:45)
[2023-06-19] MEDS ORDERED: ALBUTEROL 0.083% 2.5 MG/3 ML NEBU INH ONE (19:45)
[2023-06-19] MEDS ORDERED: SODIUM POLYSTYRENE 15 GM/60 ML UDBTL PO ONE (19:45)
[2023-06-19 19:51] VITALS: PULSE 95; RESP 22; O2SAT 92; O2SAT 94
[2023-06-19] MEDS ORDERED: guaiFENesin DM 200/20 MG-10 ML 10 ML UDC PO PRN ×2 (23:40→23:45)
[2023-06-19] MEDS ORDERED: ZOLPIDEM 5 MG TAB PO PRN ×2 (23:40→23:45)
[2023-06-19] MEDS ORDERED: DOCUSATE SODIUM 100 MG GELCAP PO PRN ×2 (23:40→23:45)
[2023-06-19] MEDS ORDERED: HYDROcodone/APAP 7.5/325 MG 1 TAB PO PRN ×2 (23:40→23:45)
[2023-06-19] MEDS ORDERED: ONDANSETRON 4 MG/2 ML VIAL IM/IVP PRN ×2 (23:40→23:45)
[2023-06-19] MEDS ORDERED: POTASSIUM CHLORIDE 10 MEQ TABER PO PRN ×2 (23:40→23:45)
[2023-06-19] MEDS ORDERED: ACETAMINOPHEN 325 MG TAB PO PRN ×2 (23:40→23:45)
[2023-06-19 23:45] LABS: ANION GAP 27.6 (8-16); CALCIUM 8.9 mg/dL (8.5-10.1); CARBON DIOXIDE 16.3 mmol/L (21-32)
[2023-06-19] MEDS ORDERED: hydrALAZINE 20 MG/ML VIAL IVP PRN (23:50)
[2023-06-19 23:57] LABS: CREATININE 20.9 mg/dL (0.6-1.3); POTASSIUM 8.9 mmol/L (3.5-5.1)
[2023-06-20] VITALS (8 sets, daily range): BP systolic 151–183; BP diastolic 79–96; PULSE 83–99; RESP 19–24; TEMP 96.8–97.9; O2SAT 87–100
[2023-06-20] LABS: AMPHETAMINE, URINE POSITIVE ng/ml (NEG <=1000); BARBITURATE, URINE NEGATIVE ng/ml (NEG <=200); BENZODIAZEPINE, URINE NEGATIVE ng/mL (NEG <=200); CANNABINOID, URINE NEGATIVE ng/mL (NEG <=50); COCAINE, URINE NEGATIVE ng/mL (NEG <=300); OPIATE, URINE POSITIVE ng/mL (NEG <=2000); PHENCYCLIDINE SCREEN,URINE NEGATIVE ng/mL (NEG <=25)
[2023-06-20] MEDS ORDERED: INSULIN REGULAR, HUMAN 100 UNIT/ML VIAL IVP ONE (00:05)
[2023-06-20] MEDS ORDERED: DEXTROSE 50% 50 ML SYR IVP ONE (00:05)
[2023-06-20] MEDS ORDERED: ALBUTEROL 0.083% 2.5 MG/3 ML NEBU INH ONE (00:05)
[2023-06-20] MEDS ORDERED: CALCIUM GLUCONATE 10% 1000 MG/10 ML VIAL IVP ONE (00:05)
[2023-06-20] MEDS ORDERED: CALCIUM GLUC 1 GM/50 mL NS BAG 50 ML IV ONE (00:13)
[2023-06-20 06:46] LABS: ALBUMIN 3.1 g/dL (3.4-5.0); ANION GAP 17.2 (8-16); CALCIUM 8.6 mg/dL (8.5-10.1); CARBON DIOXIDE 26.1 mmol/L (21-32); POTASSIUM 4.3 mmol/L (3.5-5.1); TOTAL BILIRUBIN 0.4 mg/dL (0.0-1.0); TOTAL PROTEIN, SERUM 8.2 g/dL (6.4-8.2)
[2023-06-20 06:52] LABS: CREATININE 13.7 mg/dL (0.6-1.3)
[2023-06-20 07:02] LABS: BASOPHILS % (AUTO) 0.6 % (0.0-2.0); EOSINOPHILS # (AUTO) 0.1 K/uL (0-0.4); EOSINOPHILS % (AUTO) 2.5 % (0.0-4.0); HEMATOCRIT 22.9 % (36-52); HEMOGLOBIN 7.6 g/dL (12.0-18.0); LYMPHOCYTES # (AUTO) 0.7 K/uL (2.0-11.5); LYMPHOCYTES % (AUTO) 11.6 % (20.5-51.1); MEAN CORPUSCULAR HEMOGLOBIN 28 pg (27-31); MEAN CORPUSCULAR HGB CONC 33 g/dL (33-37); MEAN CORPUSCULAR VOLUME 82.8 fL (80-94); MONOCYTES # (AUTO) 0.5 K/uL (0.8-1.0); MONOCYTES % (AUTO) 7.9 % (1.7-9.3); NEUTROPHILS # (AUTO) 4.5 K/uL (1.8-7.7); NEUTROPHILS % (AUTO) 77.4 % (42.2-75.2); PLATELET COUNT (AUTO) 228 K/uL (140-450); RED BLOOD CELL COUNT(AUTO) 2.76 MIL/uL (4.20-6.10); RED CELL DISTRIBUTION WIDTH 15.9 % (11.6-13.7); WHITE BLOOD COUNT (AUTO) 5.8 K/uL (4.8-10.8)
[2023-06-20] MEDS ORDERED: PANTOPRAZOLE 40 MG TABEC PO SCH ×2 (09:00)
[2023-06-20] MEDS ORDERED: NIFEdipine 60 MG TABER PO SCH ×2 (09:00)
[2023-06-20] MEDS ORDERED: HYDR-5080 PO (11:10)
[2023-06-20] MEDS ORDERED: LABETALOL 200 MG TAB PO SCH (14:30)
[2023-06-20] MEDS ORDERED: ACET-9525 PO (16:02)
== END 2023-06-20 17:10 | disposition home or self-care (01) | DRG 425 ==
LOC: MED 17:53 → MTU 23:36 → MED 23:39 → MTU 23:39
PROVIDERS: ADMIT Student in an Organized Health Care Education/Training Program; ATTEND Student in an Organized Health Care Education/Training Program
PROC: 5A1D70Z Performance of Urinary Filtration, Intermittent, Less than 6 Hours Per Day (ICD-10-PCS; principal; 2023-06-20)
DX: E87.5 Hyperkalemia (principal); I12.0 Hypertensive chronic kidney disease with stage 5 chronic kidney disease or end stage renal disease; E44.1 Mild protein-calorie malnutrition; D63.1 Anemia in chronic kidney disease; I50.9 Heart failure, unspecified; N18.6 End stage renal disease; E87.70 Fluid overload, unspecified; F15.10 Other stimulant abuse, uncomplicated; S90.935A Unspecified superficial injury of left lesser toe(s), initial encounter; X58.XXXA Exposure to other specified factors, initial encounter; Y93.89 Activity, other specified; Y92.89 Other specified places as the place of occurrence of the external cause; Y99.8 Other external cause status; Z99.2 Dependence on renal dialysis; Z89.511 Acquired absence of right leg below knee; Z59.00 Homelessness unspecified; Z91.199 Patient's noncompliance with other medical treatment and regimen due to unspecified reason; Z91.158 Patient's noncompliance with renal dialysis for other reason; Z68.30 Body mass index [BMI] 30.0-30.9, adult
CPT/HCPCS: 36415; 71045; 80048; 80053; 80305; 82948; 83880; 84484; 85025; 87081; 93005; 94640; 94644; 96374; 96375; 96376; 99291; J0360; J0610; J1170; J1644; J1815; J7613

== ENCOUNTER 2023-06-29 02:30 | Emergency (ER) | payer MEDICAID ==
[~2023-06-29] VITALS: Ht 182.9 cm; Wt 108.9 kg
[~2023-06-29 02:30] MED LIST changes: +ACET-9525 PO; -CEPH-588 PO; -SULF-58 PO
[2023-06-29 02:35] VITALS: BP 121/101; PULSE 102; RESP 16; TEMP 97.5; O2SAT 98
[2023-06-29 03:07] LABS: APPEARANCE,URINE CLEAR (CLEAR); BILIRUBIN,URINE NEGATIVE (NEGATIVE); BLOOD, URINE 1+ (NEGATIVE); COLOR,URINE YELLOW (YELLOW); LEUKOCYTE ESTERASE ,URINE 1+ (NEGATIVE); NITRITE, URINE NEGATIVE (NEGATIVE); PH,URINE 8.5 (5.0-9.0); PROTEIN,URINE 3+ (NEGATIVE); UGLUCOSE TRACE (NEGATIVE); UROBILINOGEN,URINE 0.2 EU/dL (0.2 - 1)
[2023-06-29 03:14] LABS: BACTERIA,URINE >30 (MANY) /HPF (None Seen); MUCUS,URINE 1+ /LPF (None Seen); SQUAMOUS EPITHELIAL CELL,UR 0-3 (FEW) /LPF (0-3 (FEW)); WBC,URINE TOO MANY TO COUNT /HPF (0-5)
[2023-06-29 03:32] LABS: BASOPHILS # (AUTO) 0.1 K/uL (0.00-0.22); BASOPHILS % (AUTO) 0.7 % (0.0-2.0); EOSINOPHILS # (AUTO) 0.2 K/uL (0-0.4); EOSINOPHILS % (AUTO) 2.2 % (0.0-4.0); HEMATOCRIT 22.8 % (36-52); HEMOGLOBIN 7.3 g/dL (12.0-18.0); LYMPHOCYTES # (AUTO) 1.1 K/uL (2.0-11.5); LYMPHOCYTES % (AUTO) 12.3 % (20.5-51.1); MEAN CORPUSCULAR HEMOGLOBIN 27 pg (27-31); MEAN CORPUSCULAR HGB CONC 32 g/dL (33-37); MEAN CORPUSCULAR VOLUME 84.1 fL (80-94); MONOCYTES # (AUTO) 0.8 K/uL (0.8-1.0); MONOCYTES % (AUTO) 9.1 % (1.7-9.3); NEUTROPHILS # (AUTO) 6.6 K/uL (1.8-7.7); NEUTROPHILS % (AUTO) 75.7 % (42.2-75.2); PLATELET COUNT (AUTO) 232 K/uL (140-450); RED BLOOD CELL COUNT(AUTO) 2.71 MIL/uL (4.20-6.10); RED CELL DISTRIBUTION WIDTH 15.6 % (11.6-13.7); WHITE BLOOD COUNT (AUTO) 8.6 K/uL (4.8-10.8)
[2023-06-29 03:38] LABS: ANION GAP 13.5 (8-16); CALCIUM 9.4 mg/dL (8.5-10.1); CARBON DIOXIDE 30.4 mmol/L (21-32); POTASSIUM 4.9 mmol/L (3.5-5.1)
[2023-06-29 03:40] LABS: CREATININE 7.4 mg/dL (0.6-1.3)
[2023-06-29] MEDS: ACETAMINOPHEN EXTRA STRENGTH 500 MG TAB PO ONE (04:19)
[2023-06-29] MEDS: cephALEXin 500 MG CAP PO ONE (04:19)
[2023-06-29] MEDS: oxyCODONE 10 MG TABER PO ONE (04:20)
[2023-06-29] MEDS ORDERED: CEPH-588 PO (04:59)
[2023-06-29 05:45] VITALS: BP 121/78; PULSE 78; RESP 16; TEMP 97.5; O2SAT 98
[2023-06-29] MEDS ORDERED: ACET-10509 PO (05:51)
== END 2023-06-29 05:45 | disposition home or self-care (01) ==
LOC: MED 02:30
DX: N39.0 Urinary tract infection, site not specified (principal); E11.22 Type 2 diabetes mellitus with diabetic chronic kidney disease; N18.6 End stage renal disease; I50.9 Heart failure, unspecified; Z99.2 Dependence on renal dialysis; Z79.899 Other long term (current) drug therapy
CPT/HCPCS: 36415; 80048; 81001; 85025; 87086; 99284

== ENCOUNTER 2023-09-16 04:36 | Inpatient (IN) | payer MEDICAID ==
[2023-09-16] VITALS (13 sets, daily range): BP systolic 180; BP diastolic 77; PULSE 91; RESP 18–20; TEMP 97.8; O2SAT 94–98
[~2023-09-16] VITALS: Ht 182.9 cm; Wt 131.5 kg
[~2023-09-16 04:36] MED LIST changes: +ACET-10509 PO; +CEPH-588 PO
[2023-09-16 05:31] LABS: APPEARANCE,URINE CLEAR (CLEAR); BILIRUBIN,URINE NEGATIVE (NEGATIVE); BLOOD, URINE TRACE-I (NEGATIVE); COLOR,URINE YELLOW (YELLOW); LEUKOCYTE ESTERASE ,URINE NEGATIVE (NEGATIVE); NITRITE, URINE NEGATIVE (NEGATIVE); PH,URINE 8.5 (5.0-9.0); PROTEIN,URINE 2+ (NEGATIVE); UGLUCOSE 1+ (NEGATIVE); UROBILINOGEN,URINE 0.2 EU/dL (0.2 - 1)
[2023-09-16 05:56] LABS: BACTERIA,URINE OCCASSIONAL /HPF (None Seen); RBC,URINE 0-5 /HPF (0-5); SQUAMOUS EPITHELIAL CELL,UR 0-3 (FEW) /LPF (0-3 (FEW)); WBC,URINE 0-5 /HPF (0-5)
[2023-09-16] MEDS ORDERED: hydrALAZINE 20 MG/ML VIAL IVP ONE ×2 (06:20→08:25)
[2023-09-16 07:43] LABS: BASOPHILS % (AUTO) 0.6 % (0.0-2.0); EOSINOPHILS # (AUTO) 0.1 K/uL (0-0.4); EOSINOPHILS % (AUTO) 1.3 % (0.0-4.0); HEMATOCRIT 23.6 % (36-52); HEMOGLOBIN 7.6 g/dL (12.0-18.0); LYMPHOCYTES # (AUTO) 0.6 K/uL (2.0-11.5); LYMPHOCYTES % (AUTO) 11.1 % (20.5-51.1); MEAN CORPUSCULAR HEMOGLOBIN 28 pg (27-31); MEAN CORPUSCULAR HGB CONC 32 g/dL (33-37); MEAN CORPUSCULAR VOLUME 85.1 fL (80-94); MONOCYTES # (AUTO) 0.4 K/uL (0.8-1.0); NEUTROPHILS # (AUTO) 4.2 K/uL (1.8-7.7); PLATELET COUNT (AUTO) 149 K/uL (140-450); RED BLOOD CELL COUNT(AUTO) 2.77 MIL/uL (4.20-6.10); RED CELL DISTRIBUTION WIDTH 16.7 % (11.6-13.7); WHITE BLOOD COUNT (AUTO) 5.3 K/uL (4.8-10.8)
[2023-09-16 08:01] LABS: ANION GAP 25.5 (8-16); CALCIUM 9.2 mg/dL (8.5-10.1); CARBON DIOXIDE 20.7 mmol/L (21-32)
[2023-09-16 08:05] LABS: ALBUMIN 3.4 g/dL (3.4-5.0); BILIRUBIN,DIRECT 0.1 mg/dL (0.0-0.3); TOTAL BILIRUBIN 0.5 mg/dL (0.0-1.0); TOTAL PROTEIN, SERUM 8.5 g/dL (6.4-8.2)
[2023-09-16 08:09] LABS: LACTIC ACID 0.9 mmol/L (0.4-2.0)
[2023-09-16 08:24] LABS: POTASSIUM 8.2 mmol/L (3.5-5.1)
[2023-09-16 08:25] LABS: CREATININE 12.9 mg/dL (0.6-1.3)
[2023-09-16] MEDS ORDERED: ALBUTEROL 0.083% 2.5 MG/3 ML NEBU INH ONE (08:25)
[2023-09-16] MEDS ORDERED: SODIUM ZIRCONIUM CYCLOSILICATE 10 GM POWD.PACK PO ONE (08:25)
[2023-09-16] MEDS ORDERED: INSULIN REGULAR, HUMAN 100 UNIT/ML VIAL IVP ONE (08:25)
[2023-09-16] MEDS ORDERED: DEXTROSE 50% 50 ML SYR IVP ONE ×4 (08:25→11:41)
[2023-09-16] MEDS ORDERED: CALCIUM GLUCONATE 10% 1,000 MG in NACL 0.9% 50 ML IV ONE (08:25)
[2023-09-16] MEDS ORDERED: CALCIUM GLUC 1 GM/50 mL NS BAG 50 ML IV ONE (09:28)
[2023-09-16] MEDS ORDERED: hydrALAZINE 20 MG/ML VIAL ONE (09:34)
[2023-09-16] MEDS ORDERED: SODIUM ZIRCONIUM CYCLOSILICATE 10 GM POWD.PACK ONE (09:35)
[2023-09-16] MEDS ORDERED: ENALAPRILAT 2.5 MG/2 ML VIAL IVP PRN (12:40)
[2023-09-16] MEDS: FUROSEMIDE 100 MG/10 ML VIAL IV SCH ×2 (19:52→22:00)
[2023-09-16] MEDS: LABETALOL 200 MG TAB PO SCH (21:30)
[2023-09-17] MEDS ORDERED: MORPHINE SULFATE 2 MG/ML SYR IVP ONE (00:40)
[2023-09-17 01:26] VITALS: O2SAT 96
[2023-09-17 03:31] VITALS: O2SAT 96
[2023-09-17 03:52] LABS: BASOPHILS % (AUTO) 0.3 % (0.0-2.0); EOSINOPHILS % (AUTO) 0.4 % (0.0-4.0); HEMATOCRIT 20.2 % (36-52); LYMPHOCYTES # (AUTO) 0.4 K/uL (2.0-11.5); LYMPHOCYTES % (AUTO) 9.4 % (20.5-51.1); MEAN CORPUSCULAR HEMOGLOBIN 27 pg (27-31); MEAN CORPUSCULAR HGB CONC 33 g/dL (33-37); MEAN CORPUSCULAR VOLUME 83.4 fL (80-94); MONOCYTES # (AUTO) 0.5 K/uL (0.8-1.0); MONOCYTES % (AUTO) 9.7 % (1.7-9.3); NEUTROPHILS # (AUTO) 3.8 K/uL (1.8-7.7); NEUTROPHILS % (AUTO) 80.2 % (42.2-75.2); PLATELET COUNT (AUTO) 118 K/uL (140-450); RED BLOOD CELL COUNT(AUTO) 2.43 MIL/uL (4.20-6.10); RED CELL DISTRIBUTION WIDTH 16.1 % (11.6-13.7); WHITE BLOOD COUNT (AUTO) 4.7 K/uL (4.8-10.8)
[2023-09-17 04:07] LABS: ALBUMIN 3.1 g/dL (3.4-5.0); ANION GAP 17.3 (8-16); CALCIUM 8.8 mg/dL (8.5-10.1); POTASSIUM 5.3 mmol/L (3.5-5.1); TOTAL BILIRUBIN 0.5 mg/dL (0.0-1.0); TOTAL PROTEIN, SERUM 7.9 g/dL (6.4-8.2)
[2023-09-17 04:16] LABS: CREATININE 10.1 mg/dL (0.6-1.3)
[2023-09-17 04:18] LABS: HEMOGLOBIN 6.6 g/dL (12.0-18.0)
[2023-09-17 09:00] VITALS: RESP 15; O2SAT 99
[2023-09-17] MEDS: NIFEdipine 60 MG TABER PO SCH (10:38)
[2023-09-17] MEDS: FUROSEMIDE 100 MG/10 ML VIAL IV SCH ×2 (10:38→21:00)
[2023-09-17] MEDS: LABETALOL 200 MG TAB PO SCH ×2 (10:38→21:00)
[2023-09-17 12:00] VITALS: BP 144/78; PULSE 80; PULSE 82; RESP 20; TEMP 97.7; O2SAT 98
[2023-09-17 12:22] LABS: AMPHETAMINE, URINE NEGATIVE ng/ml (NEG <=1000); BARBITURATE, URINE NEGATIVE ng/ml (NEG <=200); BENZODIAZEPINE, URINE NEGATIVE ng/mL (NEG <=200); CANNABINOID, URINE NEGATIVE ng/mL (NEG <=50); COCAINE, URINE NEGATIVE ng/mL (NEG <=300); OPIATE, URINE NEGATIVE ng/mL (NEG <=2000); PHENCYCLIDINE SCREEN,URINE NEGATIVE ng/mL (NEG <=25)
[2023-09-17 16:00] VITALS: BP 136/63; PULSE 79; PULSE 84; RESP 20; TEMP 97.8; O2SAT 97
[2023-09-17] MEDS ORDERED: ACETAMINOPHEN 325 MG TAB PO PRN (18:50)
[2023-09-17 20:00] VITALS: BP 116/68; PULSE 84; RESP 18; TEMP 97.4; O2SAT 95
[2023-09-17] MEDS: SODIUM ZIRCONIUM CYCLOSILICATE 10 GM POWD.PACK PO SCH (22:18)
[2023-09-17 23:08] LABS: HEMATOCRIT 26.9 % (36-52)
[2023-09-18] VITALS: BP 133/72; PULSE 89; PULSE 95; RESP 24; TEMP 97.3; O2SAT 100
[2023-09-18 04:00] VITALS: BP 136/78; PULSE 87; PULSE 94; RESP 25; TEMP 97; O2SAT 97
[2023-09-18 07:15] LABS: BASOPHILS % (AUTO) 0.5 % (0.0-2.0); EOSINOPHILS # (AUTO) 0.1 K/uL (0-0.4); EOSINOPHILS % (AUTO) 4.6 % (0.0-4.0); HEMOGLOBIN 9.3 g/dL (12.0-18.0); LYMPHOCYTES # (AUTO) 0.7 K/uL (2.0-11.5); LYMPHOCYTES % (AUTO) 20.3 % (20.5-51.1); MEAN CORPUSCULAR HEMOGLOBIN 28 pg (27-31); MEAN CORPUSCULAR HGB CONC 33 g/dL (33-37); MEAN CORPUSCULAR VOLUME 84.4 fL (80-94); MONOCYTES # (AUTO) 0.5 K/uL (0.8-1.0); NEUTROPHILS % (AUTO) 59.6 % (42.2-75.2); PLATELET COUNT (AUTO) 115 K/uL (140-450); RED BLOOD CELL COUNT(AUTO) 3.32 MIL/uL (4.20-6.10); RED CELL DISTRIBUTION WIDTH 15.8 % (11.6-13.7); WHITE BLOOD COUNT (AUTO) 3.3 K/uL (4.8-10.8)
[2023-09-18 07:34] LABS: ANION GAP 16.3 (8-16); CALCIUM 8.7 mg/dL (8.5-10.1); CARBON DIOXIDE 28.4 mmol/L (21-32); POTASSIUM 4.7 mmol/L (3.5-5.1); TOTAL BILIRUBIN 0.5 mg/dL (0.0-1.0); TOTAL PROTEIN, SERUM 8.9 g/dL (6.4-8.2)
[2023-09-18 07:51] LABS: CREATININE 9.3 mg/dL (0.6-1.3)
[2023-09-18 08:00] VITALS: BP 134/80; PULSE 82; RESP 20; TEMP 97.3; O2SAT 100
[2023-09-18] MEDS: FUROSEMIDE 100 MG/10 ML VIAL IV SCH (08:31)
[2023-09-18] MEDS: NIFEdipine 60 MG TABER PO SCH (08:32)
[2023-09-18] MEDS: SODIUM ZIRCONIUM CYCLOSILICATE 10 GM POWD.PACK PO SCH (08:32)
[2023-09-18] MEDS: LABETALOL 200 MG TAB PO SCH (08:32)
[2023-09-18 14:38] VITALS: BP 146/82; PULSE 82; RESP 20; TEMP 97.3
[2023-09-27] MEDS ORDERED: HYDR-1102 PO (15:25)
[2023-09-27] MEDS ORDERED: ENAL10TA51 PO (15:25)
== END 2023-09-18 15:15 | disposition home or self-care (01) | DRG 190 ==
LOC: MED 04:36 → MMU 09:24 → MTU 09-17 07:13
PROVIDERS: ADMIT Family Medicine; ATTEND Family Medicine
PROC: 5A1D70Z Performance of Urinary Filtration, Intermittent, Less than 6 Hours Per Day (ICD-10-PCS; principal; 2023-09-16)
PROC: 5A1D70Z Performance of Urinary Filtration, Intermittent, Less than 6 Hours Per Day (ICD-10-PCS; 2023-09-17)
PROC: 30233N1 Transfusion of Nonautologous Red Blood Cells into Peripheral Vein, Percutaneous Approach (ICD-10-PCS; 2023-09-17)
DX: I21.4 Non-ST elevation (NSTEMI) myocardial infarction (principal); J96.01 Acute respiratory failure with hypoxia; I50.33 Acute on chronic diastolic (congestive) heart failure; N18.6 End stage renal disease; R65.10 Systemic inflammatory response syndrome (SIRS) of non-infectious origin without acute organ dysfunction; E11.9 Type 2 diabetes mellitus without complications; I11.0 Hypertensive heart disease with heart failure; E87.5 Hyperkalemia; D64.9 Anemia, unspecified; Z59.00 Homelessness unspecified; I16.1 Hypertensive emergency
CPT/HCPCS: 36415; 71045; 80048; 80053; 80076; 80305; 81001; 82948; 83605; 83880; 84484; 85018; 85025; 86886; 86900; 86901; 86920; 87040; 87081; 87086; 94640; 96365; 96375; 96376; 99291; J0360; J0610; J1644; J1815; J1940; J2270; J7613; P9016; Q0092

== ENCOUNTER 2023-10-05 22:50 | Inpatient (IN) | payer MEDICAID ==
[~2023-10-05] VITALS: Ht 177.8 cm; Wt 99.8 kg
[2023-10-05 22:50] VITALS: BP 199/106; PULSE 106; RESP 23; TEMP 97.7; O2SAT 90
[~2023-10-05 22:50] MED LIST changes: -CEPH-588 PO; +ENAL10TA51 PO; +HYDR-1102 PO
[2023-10-05 23:17] LABS: BASOPHILS % (AUTO) 0.6 % (0.0-2.0); EOSINOPHILS # (AUTO) 0.1 K/uL (0-0.4); EOSINOPHILS % (AUTO) 1.7 % (0.0-4.0); HEMATOCRIT 26.5 % (36-52); HEMOGLOBIN 8.6 g/dL (12.0-18.0); LYMPHOCYTES # (AUTO) 0.4 K/uL (2.0-11.5); MEAN CORPUSCULAR HEMOGLOBIN 28 pg (27-31); MEAN CORPUSCULAR HGB CONC 33 g/dL (33-37); MEAN CORPUSCULAR VOLUME 85.4 fL (80-94); MONOCYTES # (AUTO) 0.4 K/uL (0.8-1.0); MONOCYTES % (AUTO) 5.4 % (1.7-9.3); NEUTROPHILS # (AUTO) 6.1 K/uL (1.8-7.7); NEUTROPHILS % (AUTO) 86.3 % (42.2-75.2); PLATELET COUNT (AUTO) 187 K/uL (140-450); RED CELL DISTRIBUTION WIDTH 17.2 % (11.6-13.7)
[2023-10-05 23:26] LABS: ANION GAP 22.2 (8-16); CALCIUM 8.5 mg/dL (8.5-10.1); CARBON DIOXIDE 22.7 mmol/L (21-32)
[2023-10-05 23:36] LABS: LACTIC ACID 0.4 mmol/L (0.4-2.0)
[2023-10-06] MEDS ORDERED: ALBUTEROL 0.083% 2.5 MG/3 ML NEBU INH STA (00:13)
[2023-10-06] MEDS ORDERED: DEXTROSE 50% 50 ML SYR IVP ONE (00:15)
[2023-10-06] MEDS ORDERED: ALBUTEROL 0.083% 2.5 MG/3 ML NEBU INH ONE (00:15)
[2023-10-06] MEDS ORDERED: CALCIUM GLUCONATE 10% 1000 MG/10 ML VIAL IVP ONE (00:15)
[2023-10-06] MEDS ORDERED: INSULIN REGULAR, HUMAN 100 UNIT/ML VIAL IVP ONE (00:15)
[2023-10-06 00:21] VITALS: PULSE 105; RESP 22; RESP 28; O2SAT 92; O2SAT 93
[2023-10-06 00:37] LABS: POTASSIUM 6.9 mmol/L (3.5-5.1)
[2023-10-06 00:40] LABS: CREATININE 14.5 mg/dL (0.6-1.3)
[2023-10-06] MEDS ORDERED: SODIUM ZIRCONIUM CYCLOSILICATE 10 GM POWD.PACK PO ONE (00:40)
[2023-10-06 00:43] LABS: BLOOD GAS PCO2 33.7 mmHg (35-45); BLOOD GAS PH 7.308 (7.35-7.45)
[2023-10-06 00:44] LABS: BLOOD GAS HCO3 16.5 mmol/L (22-26); BLOOD GAS PO2 77.9 mmHg (75-100)
[2023-10-06 00:45] LABS: BLOOD GAS BASE EXCESS -8.9 mmol/L (-2.0-2.0); BLOOD GAS O2 SAT% 93.2 % (92.0-98.5)
[2023-10-06 01:09] LABS: APPEARANCE,URINE CLEAR (CLEAR); BILIRUBIN,URINE NEGATIVE (NEGATIVE); BLOOD, URINE 1+ (NEGATIVE); COLOR,URINE YELLOW (YELLOW); LEUKOCYTE ESTERASE ,URINE NEGATIVE (NEGATIVE); NITRITE, URINE NEGATIVE (NEGATIVE); PROTEIN,URINE 2+ (NEGATIVE); UGLUCOSE 1+ (NEGATIVE); UROBILINOGEN,URINE 0.2 EU/dL (0.2 - 1)
[2023-10-06 01:17] LABS: BACTERIA,URINE FEW /HPF (None Seen); MUCUS,URINE 1+ /LPF (None Seen); RBC,URINE 0-5 /HPF (0-5); SQUAMOUS EPITHELIAL CELL,UR 0-3 (FEW) /LPF (0-3 (FEW)); WBC,URINE 0-5 /HPF (0-5)
[2023-10-06 01:19] LABS: AMPHETAMINE, URINE NEGATIVE ng/ml (NEG <=1000); BARBITURATE, URINE NEGATIVE ng/ml (NEG <=200); BENZODIAZEPINE, URINE NEGATIVE ng/mL (NEG <=200); CANNABINOID, URINE NEGATIVE ng/mL (NEG <=50); COCAINE, URINE NEGATIVE ng/mL (NEG <=300); OPIATE, URINE NEGATIVE ng/mL (NEG <=2000); PHENCYCLIDINE SCREEN,URINE NEGATIVE ng/mL (NEG <=25)
[2023-10-06] MEDS ORDERED: ACETAMINOPHEN 325 MG TAB PO PRN ×2 (02:00→16:30)
[2023-10-06] MEDS ORDERED: HYDROcodone/APAP 5/325 MG 1 TAB TAB PO PRN (02:00)
[2023-10-06 06:59] LABS: BASOPHILS # (AUTO) 0.1 K/uL (0.00-0.22); BASOPHILS % (AUTO) 1.2 % (0.0-2.0); EOSINOPHILS % (AUTO) 0.3 % (0.0-4.0); HEMATOCRIT 28.4 % (36-52); HEMOGLOBIN 9.3 g/dL (12.0-18.0); LYMPHOCYTES # (AUTO) 0.5 K/uL (2.0-11.5); LYMPHOCYTES % (AUTO) 4.1 % (20.5-51.1); MEAN CORPUSCULAR HEMOGLOBIN 28 pg (27-31); MEAN CORPUSCULAR HGB CONC 33 g/dL (33-37); MEAN CORPUSCULAR VOLUME 86.3 fL (80-94); MONOCYTES # (AUTO) 0.6 K/uL (0.8-1.0); MONOCYTES % (AUTO) 5.3 % (1.7-9.3); NEUTROPHILS # (AUTO) 10.1 K/uL (1.8-7.7); NEUTROPHILS % (AUTO) 89.1 % (42.2-75.2); PLATELET COUNT (AUTO) 143 K/uL (140-450); RED BLOOD CELL COUNT(AUTO) 3.29 MIL/uL (4.20-6.10); RED CELL DISTRIBUTION WIDTH 17.5 % (11.6-13.7); WHITE BLOOD COUNT (AUTO) 11.4 K/uL (4.8-10.8)
[2023-10-06 07:19] LABS: ALBUMIN 3.5 g/dL (3.4-5.0); ANION GAP 28.3 (8-16); CALCIUM 8.8 mg/dL (8.5-10.1); CARBON DIOXIDE 17.1 mmol/L (21-32); MAGNESIUM 2.7 mg/dL (1.8-2.4); TOTAL BILIRUBIN 0.4 mg/dL (0.0-1.0)
[2023-10-06 08:09] LABS: PHOSPHORUS 11.4 mg/dL (2.5-4.9)
[2023-10-06 08:14] LABS: POTASSIUM 6.4 mmol/L (3.5-5.1)
[2023-10-06] MEDS ORDERED: LABETALOL 200 MG TAB PO SCH (11:15)
[2023-10-06] MEDS ORDERED: hydrALAZINE 10 MG TAB PO SCH ×2 (11:15→13:00)
[2023-10-06] MEDS ORDERED: ENALAPRIL 10 MG TAB PO SCH (11:15)
[2023-10-06] MEDS ORDERED: DEXTROSE 50% 50 ML SYR IVP PRN (16:30)
[2023-10-06] MEDS ORDERED: MORPHINE SULFATE 2 MG/ML SYR IVP PRN (16:30)
[2023-10-06] MEDS ORDERED: ZOLPIDEM 10 MG TAB PO PRN (16:30)
[2023-10-06] MEDS ORDERED: ONDANSETRON 4 MG/2 ML VIAL IVP PRN (16:30)
[2023-10-06] MEDS: BLOOD GLUCOSE MONITORING 1 DEV DEV FS SCH ×2 (16:30→20:54)
[2023-10-06] MEDS ORDERED: MAG SULF 2000 MG/WATER PREMIX 50 ML IV PRN (16:30)
[2023-10-06] MEDS ORDERED: LORazepam 2 MG/ML VIAL IVP PRN (16:30)
[2023-10-06] MEDS ORDERED: DOCUSATE SODIUM 100 MG GELCAP PO PRN (16:30)
[2023-10-06] MEDS ORDERED: POTASSIUM CHLORIDE 10 MEQ TABER PO PRN (16:30)
[2023-10-06 18:22] VITALS: O2SAT 99
[2023-10-06 18:55] VITALS: RESP 19; O2SAT 99
[2023-10-06 20:00] VITALS: BP 147/101; PULSE 87; PULSE 97; RESP 22; TEMP 98.8; O2SAT 95
[2023-10-06] MEDS: hydrALAZINE 10 MG TAB PO SCH (20:48)
[2023-10-06] MEDS: ENALAPRIL 10 MG TAB PO SCH (20:48)
[2023-10-06] MEDS: LABETALOL 200 MG TAB PO SCH (20:49)
[2023-10-06] MEDS: SEVELAMER CARBONATE 800 MG TAB PO SCH (20:49)
[2023-10-06] MEDS: INSULIN LISPRO SLIDING SCALE 100 UNITS/ML VIAL SUBQ PRN (20:59)
[2023-10-07] VITALS: BP 131/74; PULSE 88; PULSE 91; RESP 22; TEMP 97.6; O2SAT 95
[2023-10-07 04:00] VITALS: BP 141/81; PULSE 83; PULSE 85; RESP 21; TEMP 98.4; O2SAT 95
[2023-10-07] MEDS: BLOOD GLUCOSE MONITORING 1 DEV DEV FS SCH ×3 (06:36→16:30)
[2023-10-07 06:44] LABS: BASOPHILS % (AUTO) 0.9 % (0.0-2.0); EOSINOPHILS # (AUTO) 0.1 K/uL (0-0.4); EOSINOPHILS % (AUTO) 2.7 % (0.0-4.0); HEMATOCRIT 23.4 % (36-52); HEMOGLOBIN 7.9 g/dL (12.0-18.0); LYMPHOCYTES # (AUTO) 0.6 K/uL (2.0-11.5); LYMPHOCYTES % (AUTO) 13.4 % (20.5-51.1); MEAN CORPUSCULAR HEMOGLOBIN 28 pg (27-31); MEAN CORPUSCULAR HGB CONC 34 g/dL (33-37); MEAN CORPUSCULAR VOLUME 84.1 fL (80-94); MONOCYTES # (AUTO) 0.5 K/uL (0.8-1.0); MONOCYTES % (AUTO) 11.9 % (1.7-9.3); NEUTROPHILS # (AUTO) 3.1 K/uL (1.8-7.7); NEUTROPHILS % (AUTO) 71.1 % (42.2-75.2); PLATELET COUNT (AUTO) 166 K/uL (140-450); RED BLOOD CELL COUNT(AUTO) 2.78 MIL/uL (4.20-6.10); RED CELL DISTRIBUTION WIDTH 17.3 % (11.6-13.7); WHITE BLOOD COUNT (AUTO) 4.4 K/uL (4.8-10.8)
[2023-10-07 07:29] VITALS: O2SAT 92
[2023-10-07 07:47] LABS: ALBUMIN 2.9 g/dL (3.4-5.0); ANION GAP 18.2 (8-16); CALCIUM 8.5 mg/dL (8.5-10.1); CARBON DIOXIDE 25.4 mmol/L (21-32); POTASSIUM 5.6 mmol/L (3.5-5.1); TOTAL BILIRUBIN 0.5 mg/dL (0.0-1.0); TOTAL PROTEIN, SERUM 8.6 g/dL (6.4-8.2)
[2023-10-07 08:00] VITALS: BP 156/83; PULSE 86; PULSE 87; RESP 19; RESP 22; TEMP 97.6; O2SAT 100; O2SAT 95
[2023-10-07] MEDS: SEVELAMER CARBONATE 800 MG TAB PO SCH ×3 (08:00→16:41)
[2023-10-07 08:03] LABS: PHOSPHORUS 9.8 mg/dL (2.5-4.9)
[2023-10-07] MEDS ORDERED: EPOETIN ALFA-EPBX 10,000 UNITS/ML VIAL IV SCH (08:08)
[2023-10-07] MEDS: hydrALAZINE 10 MG TAB PO SCH ×2 (09:00→16:41)
[2023-10-07] MEDS: ENALAPRIL 10 MG TAB PO SCH ×2 (09:00→16:41)
[2023-10-07] MEDS: NIFEdipine 60 MG TABER PO SCH (09:00)
[2023-10-07] MEDS: LABETALOL 200 MG TAB PO SCH ×2 (09:00→16:41)
[2023-10-07] MEDS: INSULIN LISPRO SLIDING SCALE 100 UNITS/ML VIAL SUBQ PRN (12:08)
[2023-10-07 16:00] VITALS: BP 180/86; PULSE 86; PULSE 97; RESP 19; TEMP 98.6; O2SAT 100
[2023-10-07] MEDS ORDERED: SEVE800T6 PO (17:13)
[2023-10-07 17:43] VITALS: BP 180/86; PULSE 86; RESP 19; TEMP 98.6
== END 2023-10-07 18:30 | disposition home or self-care (01) | DRG 133 ==
LOC: MED 22:50 → MTU 10-06 02:44
PROVIDERS: ADMIT Family Medicine; ATTEND Family Medicine
PROC: 5A1D70Z Performance of Urinary Filtration, Intermittent, Less than 6 Hours Per Day (ICD-10-PCS; principal; 2023-10-06)
DX: J96.01 Acute respiratory failure with hypoxia (principal); I21.A1 Myocardial infarction type 2; I13.2 Hypertensive heart and chronic kidney disease with heart failure and with stage 5 chronic kidney disease, or end stage renal disease; R65.10 Systemic inflammatory response syndrome (SIRS) of non-infectious origin without acute organ dysfunction; N18.6 End stage renal disease; E83.39 Other disorders of phosphorus metabolism; E11.22 Type 2 diabetes mellitus with diabetic chronic kidney disease; I16.1 Hypertensive emergency; D64.9 Anemia, unspecified; E87.5 Hyperkalemia; E87.70 Fluid overload, unspecified; Z91.199 Patient's noncompliance with other medical treatment and regimen due to unspecified reason; Z59.00 Homelessness unspecified
CPT/HCPCS: 36415; 36600; 71045; 80048; 80053; 80305; 81001; 82803; 82948; 83605; 83735; 83880; 84100; 84484; 85025; 87040; 87086; 93005; 94640; 96374; 96375; 99291; G0480; J1644; J1815; J7613; Q0092

== ENCOUNTER 2023-10-20 04:00 | Inpatient (IN) | payer MEDICAID ==
[~2023-10-20] VITALS: Ht 172.7 cm; Wt 74.8 kg
[~2023-10-20 04:00] MED LIST changes: +SEVE800T6 PO
[2023-10-20 04:06] VITALS: BP 200/100; PULSE 86; RESP 18; TEMP 98; O2SAT 94
[2023-10-20 04:41] LABS: BASOPHILS % (AUTO) 0.7 % (0.0-2.0); EOSINOPHILS # (AUTO) 0.1 K/uL (0-0.4); EOSINOPHILS % (AUTO) 1.4 % (0.0-4.0); HEMATOCRIT 26.8 % (36-52); HEMOGLOBIN 8.7 g/dL (12.0-18.0); LYMPHOCYTES # (AUTO) 0.6 K/uL (2.0-11.5); LYMPHOCYTES % (AUTO) 9.1 % (20.5-51.1); MEAN CORPUSCULAR HEMOGLOBIN 28 pg (27-31); MEAN CORPUSCULAR HGB CONC 32 g/dL (33-37); MEAN CORPUSCULAR VOLUME 85.5 fL (80-94); MONOCYTES # (AUTO) 0.5 K/uL (0.8-1.0); MONOCYTES % (AUTO) 8.8 % (1.7-9.3); PLATELET COUNT (AUTO) 210 K/uL (140-450); RED BLOOD CELL COUNT(AUTO) 3.14 MIL/uL (4.20-6.10); RED CELL DISTRIBUTION WIDTH 17.8 % (11.6-13.7); WHITE BLOOD COUNT (AUTO) 6.2 K/uL (4.8-10.8)
[2023-10-20 04:55] LABS: ANION GAP 19.8 (8-16); CALCIUM 9.1 mg/dL (8.5-10.1); CARBON DIOXIDE 23.9 mmol/L (21-32)
[2023-10-20 04:58] LABS: POTASSIUM 7.7 mmol/L (3.5-5.1)
[2023-10-20 04:59] LABS: CREATININE 15.5 mg/dL (0.6-1.3)
[2023-10-20] MEDS: DEXTROSE 50% 50 ML SYR IVP ONE (05:05)
[2023-10-20] MEDS: SODIUM ZIRCONIUM CYCLOSILICATE 10 GM POWD.PACK PO ONE (05:10)
[2023-10-20] MEDS: INSULIN REGULAR, HUMAN 100 UNIT/ML VIAL IVP ONE (05:10)
[2023-10-20] MEDS: hydrALAZINE 20 MG/ML VIAL IVP ONE (05:45)
[2023-10-20] MEDS: CALCIUM GLUC 1 GM/50 mL NS BAG 50 ML IV ONE (05:52)
[2023-10-20] MEDS ORDERED: POTASSIUM CHLORIDE 10 MEQ TABER PO PRN (06:50)
[2023-10-20] MEDS ORDERED: ONDANSETRON 4 MG/2 ML VIAL IM/IVP PRN (06:50)
[2023-10-20] MEDS ORDERED: ACETAMINOPHEN 325 MG TAB PO PRN (06:50)
[2023-10-20] MEDS ORDERED: guaiFENesin DM 200/20 MG-10 ML 10 ML UDC PO PRN (06:50)
[2023-10-20] MEDS ORDERED: DOCUSATE SODIUM 100 MG GELCAP PO PRN (06:50)
[2023-10-20 10:06] LABS: AMPHETAMINE, URINE POSITIVE ng/ml (NEG <=1000); BARBITURATE, URINE NEGATIVE ng/ml (NEG <=200); BENZODIAZEPINE, URINE NEGATIVE ng/mL (NEG <=200); CANNABINOID, URINE NEGATIVE ng/mL (NEG <=50); COCAINE, URINE NEGATIVE ng/mL (NEG <=300); OPIATE, URINE NEGATIVE ng/mL (NEG <=2000); PHENCYCLIDINE SCREEN,URINE NEGATIVE ng/mL (NEG <=25)
[2023-10-20] MEDS: PANTOPRAZOLE 40 MG TABEC PO SCH (10:51)
[2023-10-20] MEDS ORDERED: INSULIN LISPRO SLIDING SCALE 100 UNITS/ML VIAL SUBQ PRN (12:40)
[2023-10-20] MEDS: ASPIRIN 81 MG TAB.CHEW PO SCH (14:01)
[2023-10-20 15:28] LABS: ANION GAP 17.3 (8-16); CALCIUM 9.2 mg/dL (8.5-10.1); CARBON DIOXIDE 24.7 mmol/L (21-32)
[2023-10-20] MEDS: HYDROcodone/APAP 7.5/325 MG 1 TAB PO PRN (15:29)
[2023-10-20 15:30] LABS: CREATININE 10.1 mg/dL (0.6-1.3)
[2023-10-20 15:31] LABS: MAGNESIUM 1.9 mg/dL (1.8-2.4); PHOSPHORUS 6.4 mg/dL (2.5-4.9)
[2023-10-20] MEDS: BLOOD GLUCOSE MONITORING 1 DEV DEV FS SCH (16:49)
[2023-10-20] MEDS: DEXTROSE 50% 50 ML SYR IVP PRN (21:20)
[2023-10-20] MEDS: SIMVASTATIN 20 MG TAB PO SCH (21:50)
[2023-10-20] MEDS: METOPROLOL 25 MG TAB PO SCH (21:50)
[2023-10-20 22:44] VITALS: PULSE 100; RESP 18; O2SAT 97
[2023-10-21] VITALS (8 sets, daily range): BP systolic 144–172; BP diastolic 86–98; PULSE 74–100; RESP 17–18; TEMP 97.5–98.9; O2SAT 96–100
[2023-10-21 07:08] LABS: BASOPHILS % (AUTO) 0.8 % (0.0-2.0); EOSINOPHILS # (AUTO) 0.1 K/uL (0-0.4); EOSINOPHILS % (AUTO) 2.6 % (0.0-4.0); HEMATOCRIT 26.1 % (36-52); HEMOGLOBIN 8.5 g/dL (12.0-18.0); LYMPHOCYTES # (AUTO) 0.7 K/uL (2.0-11.5); LYMPHOCYTES % (AUTO) 15.8 % (20.5-51.1); MEAN CORPUSCULAR HEMOGLOBIN 28 pg (27-31); MEAN CORPUSCULAR HGB CONC 33 g/dL (33-37); MEAN CORPUSCULAR VOLUME 85.1 fL (80-94); MONOCYTES # (AUTO) 0.5 K/uL (0.8-1.0); MONOCYTES % (AUTO) 11.2 % (1.7-9.3); NEUTROPHILS # (AUTO) 3.1 K/uL (1.8-7.7); NEUTROPHILS % (AUTO) 69.6 % (42.2-75.2); PLATELET COUNT (AUTO) 171 K/uL (140-450); RED BLOOD CELL COUNT(AUTO) 3.07 MIL/uL (4.20-6.10); RED CELL DISTRIBUTION WIDTH 17.7 % (11.6-13.7); WHITE BLOOD COUNT (AUTO) 4.4 K/uL (4.8-10.8)
[2023-10-21 07:33] LABS: MAGNESIUM 2.2 mg/dL (1.8-2.4); PHOSPHORUS 8.9 mg/dL (2.5-4.9)
[2023-10-21 07:34] LABS: ALBUMIN 2.8 g/dL (3.4-5.0); ANION GAP 18.7 (8-16); CALCIUM 8.7 mg/dL (8.5-10.1); CARBON DIOXIDE 26.7 mmol/L (21-32); POTASSIUM 5.4 mmol/L (3.5-5.1); TOTAL BILIRUBIN 0.3 mg/dL (0.0-1.0); TOTAL PROTEIN, SERUM 8.6 g/dL (6.4-8.2)
[2023-10-21 07:42] LABS: CREATININE 12.2 mg/dL (0.6-1.3)
[2023-10-21] MEDS: NIFEdipine 60 MG TABER PO SCH (09:03)
[2023-10-21] MEDS: ENALAPRIL 10 MG TAB PO SCH (09:03)
[2023-10-21] MEDS: hydrALAZINE 10 MG TAB PO SCH (09:04)
[2023-10-21] MEDS: LABETALOL 200 MG TAB PO SCH (09:04)
[2023-10-21] MEDS: CALCIUM ACETATE 667 MG TAB PO SCH (09:06)
[2023-10-21] MEDS: ALBUTEROL 0.083% 2.5 MG/3 ML NEBU INH PRN (10:47)
[2023-10-21] MEDS: SEVELAMER CARBONATE 800 MG TAB PO SCH (12:41)
[2023-10-22] VITALS (9 sets, daily range): BP systolic 139–159; BP diastolic 71–86; PULSE 70–91; RESP 18–20; TEMP 97.1–98.1; O2SAT 94–100
[2023-10-22] MEDS: ZOLPIDEM 5 MG TAB PO PRN (02:18)
[2023-10-22 07:00] LABS: BASOPHILS % (AUTO) 0.8 % (0.0-2.0); EOSINOPHILS # (AUTO) 0.2 K/uL (0-0.4); EOSINOPHILS % (AUTO) 3.6 % (0.0-4.0); HEMATOCRIT 24.7 % (36-52); HEMOGLOBIN 7.9 g/dL (12.0-18.0); LYMPHOCYTES # (AUTO) 0.7 K/uL (2.0-11.5); LYMPHOCYTES % (AUTO) 15.1 % (20.5-51.1); MEAN CORPUSCULAR HEMOGLOBIN 27 pg (27-31); MEAN CORPUSCULAR HGB CONC 32 g/dL (33-37); MEAN CORPUSCULAR VOLUME 84.9 fL (80-94); MONOCYTES # (AUTO) 0.5 K/uL (0.8-1.0); MONOCYTES % (AUTO) 11.9 % (1.7-9.3); NEUTROPHILS % (AUTO) 68.6 % (42.2-75.2); PLATELET COUNT (AUTO) 169 K/uL (140-450); RED CELL DISTRIBUTION WIDTH 17.6 % (11.6-13.7); WHITE BLOOD COUNT (AUTO) 4.4 K/uL (4.8-10.8)
[2023-10-22 07:35] LABS: ALBUMIN 2.9 g/dL (3.4-5.0); ANION GAP 20.8 (8-16); CALCIUM 8.1 mg/dL (8.5-10.1); CARBON DIOXIDE 23.9 mmol/L (21-32); POTASSIUM 5.7 mmol/L (3.5-5.1); TOTAL BILIRUBIN 0.3 mg/dL (0.0-1.0); TOTAL PROTEIN, SERUM 8.5 g/dL (6.4-8.2)
[2023-10-22 07:37] LABS: CREATININE 14.4 mg/dL (0.6-1.3)
[2023-10-22] MEDS: SODIUM POLYSTYRENE 15 GM/60 ML UDBTL PR SCH (13:00)
[2023-10-22] MEDS ORDERED: EPOETIN ALFA 4,000 UNITS/ML VIAL IV ONE (18:00)
[2023-10-23] VITALS (10 sets, daily range): BP systolic 100–156; BP diastolic 53–93; PULSE 71–90; RESP 18–19; TEMP 96.8–97.6; O2SAT 94–98
[2023-10-23 06:21] LABS: ALBUMIN 2.9 g/dL (3.4-5.0); ANION GAP 17.1 (8-16); CALCIUM 8.4 mg/dL (8.5-10.1); CARBON DIOXIDE 27.2 mmol/L (21-32); POTASSIUM 5.3 mmol/L (3.5-5.1); TOTAL BILIRUBIN 0.3 mg/dL (0.0-1.0); TOTAL PROTEIN, SERUM 8.7 g/dL (6.4-8.2)
[2023-10-23 06:38] LABS: CREATININE 11.6 mg/dL (0.6-1.3)
[2023-10-23 07:09] LABS: BASOPHILS % (AUTO) 0.5 % (0.0-2.0); EOSINOPHILS # (AUTO) 0.1 K/uL (0-0.4); EOSINOPHILS % (AUTO) 3.5 % (0.0-4.0); HEMATOCRIT 28.2 % (36-52); HEMOGLOBIN 9.1 g/dL (12.0-18.0); LYMPHOCYTES # (AUTO) 0.7 K/uL (2.0-11.5); LYMPHOCYTES % (AUTO) 17.2 % (20.5-51.1); MEAN CORPUSCULAR HEMOGLOBIN 28 pg (27-31); MEAN CORPUSCULAR HGB CONC 32 g/dL (33-37); MEAN CORPUSCULAR VOLUME 85.3 fL (80-94); MONOCYTES # (AUTO) 0.4 K/uL (0.8-1.0); NEUTROPHILS % (AUTO) 69.8 % (42.2-75.2); PLATELET COUNT (AUTO) 170 K/uL (140-450); RED BLOOD CELL COUNT(AUTO) 3.31 MIL/uL (4.20-6.10); RED CELL DISTRIBUTION WIDTH 17.3 % (11.6-13.7); WHITE BLOOD COUNT (AUTO) 4.2 K/uL (4.8-10.8)
[2023-10-23] MEDS ORDERED: EPOETIN ALFA-EPBX 10,000 UNITS/ML VIAL IV SCH (15:10)
[2023-10-23] MEDS ORDERED: hydrALAZINE 25 MG TAB PO PRN (15:35)
[2023-10-24] VITALS: BP 123/63; PULSE 81; PULSE 82; RESP 18; TEMP 97.4; O2SAT 98
[2023-10-24 04:00] VITALS: BP 137/84; PULSE 72; PULSE 81; RESP 18; TEMP 97.3; O2SAT 99
[2023-10-24 06:48] LABS: BASOPHILS % (AUTO) 0.3 % (0.0-2.0); EOSINOPHILS # (AUTO) 0.1 K/uL (0-0.4); EOSINOPHILS % (AUTO) 2.6 % (0.0-4.0); HEMOGLOBIN 9.4 g/dL (12.0-18.0); LYMPHOCYTES # (AUTO) 0.6 K/uL (2.0-11.5); LYMPHOCYTES % (AUTO) 15.1 % (20.5-51.1); MEAN CORPUSCULAR HEMOGLOBIN 28 pg (27-31); MEAN CORPUSCULAR HGB CONC 32 g/dL (33-37); MEAN CORPUSCULAR VOLUME 84.8 fL (80-94); MONOCYTES # (AUTO) 0.4 K/uL (0.8-1.0); MONOCYTES % (AUTO) 10.9 % (1.7-9.3); NEUTROPHILS # (AUTO) 2.8 K/uL (1.8-7.7); NEUTROPHILS % (AUTO) 71.1 % (42.2-75.2); PLATELET COUNT (AUTO) 146 K/uL (140-450); RED BLOOD CELL COUNT(AUTO) 3.42 MIL/uL (4.20-6.10); RED CELL DISTRIBUTION WIDTH 17.5 % (11.6-13.7); WHITE BLOOD COUNT (AUTO) 3.9 K/uL (4.8-10.8)
[2023-10-24 07:03] LABS: ANION GAP 14.6 (8-16); CALCIUM 8.8 mg/dL (8.5-10.1); CARBON DIOXIDE 28.6 mmol/L (21-32); POTASSIUM 5.2 mmol/L (3.5-5.1); TOTAL BILIRUBIN 0.3 mg/dL (0.0-1.0); TOTAL PROTEIN, SERUM 8.9 g/dL (6.4-8.2)
[2023-10-24 07:50] LABS: CREATININE 10.2 mg/dL (0.6-1.3)
[2023-10-24 08:00] VITALS: BP 159/90; PULSE 18; PULSE 81; PULSE 82; RESP 18; TEMP 98; O2SAT 100
[2023-10-24 08:32] VITALS: O2SAT 97
[2023-10-24] MEDS: ATORVASTATIN 20 MG TAB PO SCH (08:32)
[2023-10-24] MEDS: SODIUM ZIRCONIUM CYCLOSILICATE 10 GM POWD.PACK PO SCH (10:58)
[2023-10-24 12:00] VITALS: BP 126/75; PULSE 80; PULSE 81; RESP 18; TEMP 97.2; O2SAT 99
[2023-10-24] MEDS ORDERED: ASPI81CT95 PO (15:01)
[2023-10-24] MEDS ORDERED: ATOR20TA40 PO (15:01)
[2023-10-24 16:00] VITALS: BP 148/79; PULSE 77; RESP 18; TEMP 98; O2SAT 98
[2023-10-29] MEDS ORDERED: SODIUM ZIRCONIUM CYCLOSILICATE 10 GM POWD.PACK NG ONE (20:20)
[2023-10-30] MEDS ORDERED: DEXTROSE 10% 1,000 ML IV ONE (08:53)
[2023-10-30] MEDS ORDERED: PROPOFOL 1000 MG/100 ML PREMIX 100 ML IV ONE (09:02)
[2023-10-30] MEDS ORDERED: ACETAMINOPHEN 650 MG/20.3 ML UDC ONE (10:12)
[2023-10-30] MEDS ORDERED: DEXTROSE 50% 50 ML SYR IVP ONE (11:37)
== END 2023-10-24 16:30 | disposition home or self-care (01) | DRG 194 ==
LOC: MED 04:00 → MTU 06:53
PROVIDERS: ADMIT Student in an Organized Health Care Education/Training Program; ATTEND Student in an Organized Health Care Education/Training Program
PROC: 5A1D70Z Performance of Urinary Filtration, Intermittent, Less than 6 Hours Per Day (ICD-10-PCS; principal; 2023-10-20)
PROC: 5A1D70Z Performance of Urinary Filtration, Intermittent, Less than 6 Hours Per Day (ICD-10-PCS; 2023-10-22)
PROC: 5A1D70Z Performance of Urinary Filtration, Intermittent, Less than 6 Hours Per Day (ICD-10-PCS; 2023-10-23)
DX: I11.0 Hypertensive heart disease with heart failure (principal); J96.01 Acute respiratory failure with hypoxia; E44.1 Mild protein-calorie malnutrition; N18.6 End stage renal disease; I24.9 Acute ischemic heart disease, unspecified; E11.9 Type 2 diabetes mellitus without complications; D64.9 Anemia, unspecified; E87.5 Hyperkalemia; I50.33 Acute on chronic diastolic (congestive) heart failure; I16.9 Hypertensive crisis, unspecified; F19.10 Other psychoactive substance abuse, uncomplicated; R07.89 Other chest pain; Z99.2 Dependence on renal dialysis; Z91.199 Patient's noncompliance with other medical treatment and regimen due to unspecified reason; Z79.899 Other long term (current) drug therapy; Z68.25 Body mass index [BMI] 25.0-25.9, adult
CPT/HCPCS: 36415; 71045; 80048; 80053; 80305; 82948; 83036; 83735; 83880; 84100; 84484; 85025; 87081; 93005; 94640; 96374; 96375; 96376; 99291; J0360; J0610; J0885; J1644; J1815; J7613; Q0092

== ENCOUNTER 2023-10-29 02:28 | Inpatient (IN) | payer MEDICAID ==
[~2023-10-29] VITALS: Ht 188 cm; Wt 146.1 kg
[2023-10-29] VITALS (9 sets, daily range): BP systolic 107–190; BP diastolic 57–94; PULSE 87–107; RESP 18–22; TEMP 98; O2SAT 95–100
[2023-10-29] MEDS: SODIUM ZIRCONIUM CYCLOSILICATE 10 GM POWD.PACK NG SCH (01:10)
[~2023-10-29 02:28] MED LIST changes: -ACET-9525 PO; +ASPI81CT95 PO; +ATOR20TA40 PO
[2023-10-29 05:06] LABS: APPEARANCE,URINE CLEAR (CLEAR); BILIRUBIN,URINE NEGATIVE (NEGATIVE); BLOOD, URINE 2+ (NEGATIVE); COLOR,URINE YELLOW (YELLOW); LEUKOCYTE ESTERASE ,URINE NEGATIVE (NEGATIVE); NITRITE, URINE NEGATIVE (NEGATIVE); PROTEIN,URINE 2+ (NEGATIVE); UGLUCOSE TRACE (NEGATIVE); UROBILINOGEN,URINE 0.2 EU/dL (0.2 - 1)
[2023-10-29 05:10] LABS: BASOPHILS % (AUTO) 0.5 % (0.0-2.0); EOSINOPHILS % (AUTO) 0.4 % (0.0-4.0); HEMATOCRIT 25.4 % (36-52); HEMOGLOBIN 8.3 g/dL (12.0-18.0); LYMPHOCYTES # (AUTO) 0.4 K/uL (2.0-11.5); LYMPHOCYTES % (AUTO) 4.9 % (20.5-51.1); MEAN CORPUSCULAR HEMOGLOBIN 28 pg (27-31); MEAN CORPUSCULAR HGB CONC 33 g/dL (33-37); MEAN CORPUSCULAR VOLUME 83.6 fL (80-94); MONOCYTES # (AUTO) 0.6 K/uL (0.8-1.0); NEUTROPHILS # (AUTO) 6.3 K/uL (1.8-7.7); NEUTROPHILS % (AUTO) 86.2 % (42.2-75.2); PLATELET COUNT (AUTO) 172 K/uL (140-450); RED BLOOD CELL COUNT(AUTO) 3.04 MIL/uL (4.20-6.10); RED CELL DISTRIBUTION WIDTH 17.2 % (11.6-13.7); WHITE BLOOD COUNT (AUTO) 7.4 K/uL (4.8-10.8)
[2023-10-29 05:16] LABS: BACTERIA,URINE OCCASSIONAL /HPF (None Seen); RBC,URINE 20-50 /HPF (0-5); SQUAMOUS EPITHELIAL CELL,UR 0-3 (FEW) /LPF (0-3 (FEW)); WBC,URINE 0-5 /HPF (0-5)
[2023-10-29 05:25] LABS: MAGNESIUM 2.3 mg/dL (1.8-2.4)
[2023-10-29 05:44] LABS: ANION GAP 28.2 (8-16); CALCIUM 8.1 mg/dL (8.5-10.1)
[2023-10-29 05:50] LABS: POTASSIUM 8.2 mmol/L (3.5-5.1)
[2023-10-29 05:51] LABS: CREATININE 19.8 mg/dL (0.6-1.3)
[2023-10-29] MEDS ORDERED: CALCIUM GLUCONATE 10% 1000 MG/10 ML VIAL IVP ONE (06:00)
[2023-10-29] MEDS ORDERED: CALCIUM GLUC 1 GM/50 mL NS BAG 50 ML IV ONE ×2 (06:17→06:24)
[2023-10-29] MEDS: SODIUM ZIRCONIUM CYCLOSILICATE 10 GM POWD.PACK PO ONE (06:17)
[2023-10-29] MEDS: DEXTROSE 50% 50 ML SYR IVP ONE ×2 (06:24→09:30)
[2023-10-29] MEDS: INSULIN REGULAR, HUMAN 100 UNIT/ML VIAL IVP ONE (06:31)
[2023-10-29] MEDS: CALCIUM GLUC 1 GM/50 mL NS BAG 50 ML IV ONE (06:35)
[2023-10-29] MEDS ORDERED: guaiFENesin DM 200/20 MG-10 ML 10 ML UDC PO PRN (06:40)
[2023-10-29] MEDS ORDERED: ONDANSETRON 4 MG/2 ML VIAL IM/IVP PRN (06:40)
[2023-10-29] MEDS ORDERED: ZOLPIDEM 5 MG TAB PO PRN (06:40)
[2023-10-29] MEDS ORDERED: DOCUSATE SODIUM 100 MG GELCAP PO PRN (06:40)
[2023-10-29] MEDS ORDERED: ACETAMINOPHEN 325 MG TAB PO PRN (06:40)
[2023-10-29] MEDS ORDERED: POTASSIUM CHLORIDE 10 MEQ TABER PO PRN (06:40)
[2023-10-29] MEDS: ALBUTEROL 0.083% 2.5 MG/3 ML NEBU INH ONE (06:48)
[2023-10-29] MEDS: MIDAZOLAM 5 MG/1 ML VIAL IM ONE (07:13)
[2023-10-29] MEDS ORDERED: ETOMIDATE 20 MG/10 ML VIAL IVP ONE (08:20)
[2023-10-29] MEDS ORDERED: SUCCINYLCHOLINE CHLORIDE 200 MG/10 ML VIAL IVP ONE (08:20)
[2023-10-29] MEDS ORDERED: PROPOFOL 1000 MG/100 ML PREMIX 100 ML IV ONE ×5 (08:20→19:17)
[2023-10-29] MEDS ORDERED: DEXTROSE 50% 50 ML SYR IVP ONE (08:23)
[2023-10-29] MEDS: ROCURONIUM 50 MG/5 ML VIAL IV ONE (08:25)
[2023-10-29] MEDS: ETOMIDATE 20 MG/10 ML VIAL IVP ONE (08:25)
[2023-10-29] MEDS ORDERED: INTUBATION KIT MC ONE (08:32)
[2023-10-29] MEDS: PROPOFOL 1000 MG/100 ML PREMIX 100 ML IV ONE (08:40)
[2023-10-29] MEDS: ATORVASTATIN 20 MG TAB PO SCH (09:00)
[2023-10-29] MEDS: LABETALOL 200 MG TAB PO SCH (09:00)
[2023-10-29] MEDS: ASPIRIN 81 MG TAB.CHEW PO SCH (09:00)
[2023-10-29] MEDS: PANTOPRAZOLE 40 MG TABEC PO SCH (09:00)
[2023-10-29] MEDS: NIFEdipine 60 MG TABER PO SCH (09:00)
[2023-10-29] MEDS: DEXTROSE 10% 250 ML IV ONE ×2 (09:10→13:50)
[2023-10-29] MEDS ORDERED: ALTEPLASE 2 MG VIAL MC ONE (09:58)
[2023-10-29 10:22] LABS: BLOOD GAS PCO2 54.5 mmHg (35-45); BLOOD GAS PH 7.212 (7.35-7.45); BLOOD GAS PO2 192.5 mmHg (75-100)
[2023-10-29 10:23] LABS: BLOOD GAS BASE EXCESS -6.4 mmol/L (-2.0-2.0); BLOOD GAS HCO3 21.4 mmol/L (22-26); BLOOD GAS O2 SAT% 98.9 % (92.0-98.5)
[2023-10-29] MEDS: MIDAZOLAM MDV 50 MG in NACL 0.9% 40 ML IV PRN (11:28)
[2023-10-29] MEDS ORDERED: DEXTROSE 10% 1,000 ML IV ONE (13:38)
[2023-10-29] MEDS ORDERED: fentaNYL citrate 1 MG in NACL 0.9% 80 ML IV PRN (13:50)
[2023-10-29] MEDS: OCTREOTIDE ACETATE 100 MCG/ML VIAL SUBQ SCH ×2 (13:51→15:03)
[2023-10-29] MEDS: SODIUM POLYSTYRENE 15 GM/60 ML UDBTL PR ONE (13:51)
[2023-10-29] MEDS: ACETAMINOPHEN 650 MG SUPP RC ONE (14:37)
[2023-10-29] MEDS: fentaNYL citrate - 50mL vial 2.5 MG in NACL 0.9% 200 ML IV PRN (14:58)
[2023-10-29] MEDS: hydrALAZINE 20 MG/ML VIAL IVP PRN (15:44)
[2023-10-29] MEDS: HYDROcodone/APAP 7.5/325 MG 1 TAB PO PRN (17:19)
[2023-10-29] MEDS: DEXTROSE 5% 1,000 ML IV SCH (19:40)
[2023-10-29] MEDS ORDERED: VANCOMYCIN PER PHARMACY MC PRN (20:10)
[2023-10-29] MEDS ORDERED: PHARMACY TO DOSE MC PRN (20:10)
[2023-10-29 20:26] LABS: AMPHETAMINE, URINE NEGATIVE ng/ml (NEG <=1000); BARBITURATE, URINE NEGATIVE ng/ml (NEG <=200); BENZODIAZEPINE, URINE NEGATIVE ng/mL (NEG <=200); CANNABINOID, URINE NEGATIVE ng/mL (NEG <=50); COCAINE, URINE NEGATIVE ng/mL (NEG <=300); OPIATE, URINE NEGATIVE ng/mL (NEG <=2000); PHENCYCLIDINE SCREEN,URINE NEGATIVE ng/mL (NEG <=25)
[2023-10-29] MEDS ORDERED: PIPERACILLIN/TAZOBACTAM 2.25 GM VIAL IV ONE (22:11)
[2023-10-29] MEDS: PIPERACILLIN/TAZOBACTAM 2.25 GM in DEXTROSE 5% 50 ML IV SCH (22:32)
[2023-10-29] MEDS: DEXTROSE 50% 50 ML SYR IVP PRN (23:21)
[2023-10-29] MEDS ORDERED: VANCOMYCIN 1,000 MG VIAL ONE (23:22)
[2023-10-29] MEDS: VANCOMYCIN 1GM/DEXT 5% PREMIX 200 ML IV SCH (23:32)
[2023-10-29] MEDS: ACETAMINOPHEN 650 MG SUPP RC PRN (23:48)
[2023-10-30] VITALS (26 sets, daily range): BP systolic 11–124; BP diastolic 44–83; PULSE 70–113; RESP 18–24; TEMP 98.1–99.1; O2SAT 93–100
[2023-10-30] MEDS: BLOOD GLUCOSE MONITORING 1 DEV DEV FS SCH (01:36)
[2023-10-30] MEDS ORDERED: PIPERACILLIN/TAZOBACTAM 2.25 GM VIAL IV ONE (05:52)
[2023-10-30] MEDS: PIPERACILLIN/TAZOBACTAM 2.25 GM in DEXTROSE 5% 50 ML IV SCH (05:58)
[2023-10-30 08:38] LABS: HEMATOCRIT 33.9 % (36-52); HEMOGLOBIN 10.8 g/dL (12.0-18.0); MEAN CORPUSCULAR HEMOGLOBIN 27 pg (27-31); MEAN CORPUSCULAR HGB CONC 32 g/dL (33-37); PLATELET COUNT (AUTO) 166 K/uL (140-450); RED BLOOD CELL COUNT(AUTO) 4.04 MIL/uL (4.20-6.10); RED CELL DISTRIBUTION WIDTH 17.5 % (11.6-13.7); WHITE BLOOD COUNT (AUTO) 17.3 K/uL (4.8-10.8)
[2023-10-30 08:52] LABS: ALBUMIN 2.4 g/dL (3.4-5.0); ANION GAP 20.1 (8-16); CALCIUM 8.5 mg/dL (8.5-10.1); CARBON DIOXIDE 24.7 mmol/L (21-32); POTASSIUM 5.8 mmol/L (3.5-5.1); TOTAL BILIRUBIN 0.3 mg/dL (0.0-1.0); TOTAL PROTEIN, SERUM 7.8 g/dL (6.4-8.2)
[2023-10-30 08:55] LABS: CREATININE 15.6 mg/dL (0.6-1.3)
[2023-10-30 09:10] LABS: LYMPHOCYTES % (MANUAL) 5 % (20-46)
[2023-10-30 09:11] LABS: MONOCYTES % (MANUAL) 6 % (5-12)
[2023-10-30] MEDS: DEXTROSE 10% 1,000 ML IV SCH (09:29)
[2023-10-30] MEDS ORDERED: ALBUMIN HUMAN 25% 50 ML IV SCH (10:00)
[2023-10-30] MEDS ORDERED: ACETAMINOPHEN 650 MG/20.3 ML UDC PO PRN (10:15)
[2023-10-30] MEDS: PROPOFOL 1000 MG/100 ML PREMIX 100 ML IV PRN (10:36)
[2023-10-30] MEDS: NOREPINEPHRINE 4 MG in DEXTROSE 5% 250 ML IV PRN (13:35)
[2023-10-30] MEDS ORDERED: ALGINATE ROPE MC PRN (14:25)
[2023-10-30 21:13] LABS: BASOPHILS % (AUTO) 0.1 % (0.0-2.0); EOSINOPHILS # (AUTO) 0.1 K/uL (0-0.4); EOSINOPHILS % (AUTO) 0.4 % (0.0-4.0); HEMATOCRIT 32.7 % (36-52); HEMOGLOBIN 10.6 g/dL (12.0-18.0); LYMPHOCYTES # (AUTO) 0.3 K/uL (2.0-11.5); MEAN CORPUSCULAR HEMOGLOBIN 27 pg (27-31); MEAN CORPUSCULAR HGB CONC 33 g/dL (33-37); MEAN CORPUSCULAR VOLUME 82.6 fL (80-94); MONOCYTES # (AUTO) 0.9 K/uL (0.8-1.0); MONOCYTES % (AUTO) 5.8 % (1.7-9.3); NEUTROPHILS # (AUTO) 14.8 K/uL (1.8-7.7); NEUTROPHILS % (AUTO) 91.7 % (42.2-75.2); PLATELET COUNT (AUTO) 151 K/uL (140-450); RED BLOOD CELL COUNT(AUTO) 3.96 MIL/uL (4.20-6.10); RED CELL DISTRIBUTION WIDTH 16.8 % (11.6-13.7); WHITE BLOOD COUNT (AUTO) 16.1 K/uL (4.8-10.8)
[2023-10-30 21:35] LABS: ANION GAP 16.4 (8-16); CALCIUM 8.5 mg/dL (8.5-10.1); CARBON DIOXIDE 25.6 mmol/L (21-32)
[2023-10-30 21:39] LABS: MAGNESIUM 1.8 mg/dL (1.8-2.4); PHOSPHORUS 8.4 mg/dL (2.5-4.9)
[2023-10-30 21:46] LABS: CREATININE 10.9 mg/dL (0.6-1.3)
[2023-10-31] VITALS (33 sets, daily range): BP systolic 78–192; BP diastolic 34–106; PULSE 77–105; RESP 22; TEMP 97.1–98.9; O2SAT 90–100
[2023-10-31] MEDS: NOREPINEPHRINE 4 MG/4 ML VIAL IV ONE ×2 (03:44→06:35)
[2023-10-31] MEDS: BLOOD GLUCOSE MONITORING 1 DEV DEV FS SCH (04:42)
[2023-10-31 05:42] LABS: BASOPHILS % (AUTO) 0.2 % (0.0-2.0); EOSINOPHILS # (AUTO) 0.1 K/uL (0-0.4); EOSINOPHILS % (AUTO) 0.6 % (0.0-4.0); HEMATOCRIT 29.7 % (36-52); HEMOGLOBIN 9.5 g/dL (12.0-18.0); LYMPHOCYTES # (AUTO) 0.6 K/uL (2.0-11.5); LYMPHOCYTES % (AUTO) 3.7 % (20.5-51.1); MEAN CORPUSCULAR HEMOGLOBIN 27 pg (27-31); MEAN CORPUSCULAR HGB CONC 32 g/dL (33-37); MEAN CORPUSCULAR VOLUME 83.8 fL (80-94); MONOCYTES # (AUTO) 1.4 K/uL (0.8-1.0); MONOCYTES % (AUTO) 9.2 % (1.7-9.3); NEUTROPHILS # (AUTO) 13.4 K/uL (1.8-7.7); NEUTROPHILS % (AUTO) 86.3 % (42.2-75.2); PLATELET COUNT (AUTO) 162 K/uL (140-450); RED BLOOD CELL COUNT(AUTO) 3.55 MIL/uL (4.20-6.10); RED CELL DISTRIBUTION WIDTH 16.9 % (11.6-13.7); WHITE BLOOD COUNT (AUTO) 15.6 K/uL (4.8-10.8)
[2023-10-31 07:16] LABS: ALBUMIN 2.1 g/dL (3.4-5.0); ANION GAP 18.5 (8-16); CALCIUM 8.4 mg/dL (8.5-10.1); POTASSIUM 5.5 mmol/L (3.5-5.1); TOTAL BILIRUBIN 0.2 mg/dL (0.0-1.0); TOTAL PROTEIN, SERUM 7.4 g/dL (6.4-8.2)
[2023-10-31 07:24] LABS: CREATININE 12.2 mg/dL (0.6-1.3)
[2023-10-31] MEDS: SODIUM ZIRCONIUM CYCLOSILICATE 10 GM POWD.PACK NG SCH (10:34)
[2023-10-31] MEDS: VANCOMYCIN 1.25GM PREMIX 250 ML IV SCH (10:35)
[2023-10-31] MEDS: SEVELAMER CARBONATE 800 MG TAB PO SCH (12:17)
[2023-10-31] MEDS: DEXMEDETOMIDINE HCL 400 MCG in NACL 0.9% 96 ML IV PRN (15:46)
[2023-11-01] VITALS (44 sets, daily range): BP systolic 78–169; BP diastolic 36–96; PULSE 72–96; RESP 22; TEMP 97–99.5; O2SAT 91–100
[2023-11-01] MEDS: NOREPINEPHRINE 4 MG/4 ML VIAL IV ONE ×2 (03:49→21:55)
[2023-11-01] MEDS: DEXMEDETOMIDINE HCL 100 MCG/ML 2 ML VIAL IV ONE (03:49)
[2023-11-01 06:09] LABS: HEPATITIS A ANTIBODY IGM Negative (Negative); HEPATITIS A ANTIBODY TOTAL Negative (Negative); HEPATITIS B CORE AB TOTAL Negative (Negative); HEPATITIS B CORE, IGM Negative (Negative); HEPATITIS B SURFACE ANTIBODY Non Reactive (.); HEPATITIS B SURFACE ANTIGEN Negative (Negative); HEPATITIS C VIRUS ANTIBODY Non Reactive (Non Reactive)
[2023-11-01 09:06] LABS: BASOPHILS % (AUTO) 0.2 % (0.0-2.0); EOSINOPHILS # (AUTO) 0.2 K/uL (0-0.4); EOSINOPHILS % (AUTO) 1.6 % (0.0-4.0); HEMATOCRIT 26.5 % (36-52); HEMOGLOBIN 8.7 g/dL (12.0-18.0); LYMPHOCYTES # (AUTO) 0.3 K/uL (2.0-11.5); LYMPHOCYTES % (AUTO) 2.8 % (20.5-51.1); MEAN CORPUSCULAR HEMOGLOBIN 27 pg (27-31); MEAN CORPUSCULAR HGB CONC 33 g/dL (33-37); MEAN CORPUSCULAR VOLUME 81.9 fL (80-94); MONOCYTES # (AUTO) 1.1 K/uL (0.8-1.0); MONOCYTES % (AUTO) 9.9 % (1.7-9.3); NEUTROPHILS # (AUTO) 9.4 K/uL (1.8-7.7); NEUTROPHILS % (AUTO) 85.5 % (42.2-75.2); PLATELET COUNT (AUTO) 170 K/uL (140-450); RED BLOOD CELL COUNT(AUTO) 3.24 MIL/uL (4.20-6.10); RED CELL DISTRIBUTION WIDTH 17.1 % (11.6-13.7)
[2023-11-01 09:36] LABS: ALBUMIN 1.8 g/dL (3.4-5.0); CALCIUM 8.8 mg/dL (8.5-10.1); CARBON DIOXIDE 22.4 mmol/L (21-32); POTASSIUM 5.4 mmol/L (3.5-5.1); TOTAL BILIRUBIN 0.3 mg/dL (0.0-1.0); TOTAL PROTEIN, SERUM 7.3 g/dL (6.4-8.2)
[2023-11-01 09:40] LABS: CREATININE 14.2 mg/dL (0.6-1.3)
[2023-11-01] MEDS ORDERED: fentaNYL citrate 1 MG in NACL 0.9% 80 ML IV PRN (11:10)
[2023-11-01] MEDS: DEXMEDETOMIDINE HCL 400 MCG in NACL 0.9% 96 ML IV PRN (12:22)
[2023-11-01] MEDS ORDERED: ALBUTEROL SULFATE/IPRATROPIU 3 ML SOL IH PRN (12:50)
[2023-11-01] MEDS: ALBUTEROL SULFATE/IPRATROPIU 3 ML SOL IH SCH (13:17)
[2023-11-01 13:44] LABS: BLOOD GAS BASE EXCESS -5.3 mmol/L (-2.0-2.0); BLOOD GAS HCO3 20.2 mmol/L (22-26); BLOOD GAS PCO2 39.3 mmHg (35-45); BLOOD GAS PH 7.329 (7.35-7.45); BLOOD GAS PO2 98.9 mmHg (75-100)
[2023-11-01] MEDS: fentaNYL citrate - 50mL vial 2.5 MG in NACL 0.9% 200 ML IV PRN (15:00)
[2023-11-01] MEDS: NOREPINEPHRINE 16 MG in DEXTROSE 5% 250 ML IV PRN (15:39)
[2023-11-01] MEDS: EPOETIN ALFA-EPBX 10,000 UNITS/ML VIAL IV SCH (15:46)
[2023-11-01] MEDS: MIDAZOLAM MDV 50 MG in NACL 0.9% 40 ML IV PRN (21:33)
[2023-11-02] VITALS (34 sets, daily range): BP systolic 104–143; BP diastolic 46–73; PULSE 71–82; RESP 22; TEMP 98.4–99.5; O2SAT 92–99
[2023-11-02 05:25] LABS: BASOPHILS % (AUTO) 0.3 % (0.0-2.0); EOSINOPHILS # (AUTO) 0.3 K/uL (0-0.4); EOSINOPHILS % (AUTO) 3.1 % (0.0-4.0); HEMATOCRIT 26.3 % (36-52); HEMOGLOBIN 8.6 g/dL (12.0-18.0); LYMPHOCYTES # (AUTO) 0.3 K/uL (2.0-11.5); LYMPHOCYTES % (AUTO) 3.7 % (20.5-51.1); MEAN CORPUSCULAR HEMOGLOBIN 27 pg (27-31); MEAN CORPUSCULAR HGB CONC 33 g/dL (33-37); MEAN CORPUSCULAR VOLUME 81.6 fL (80-94); MONOCYTES # (AUTO) 0.6 K/uL (0.8-1.0); MONOCYTES % (AUTO) 7.2 % (1.7-9.3); NEUTROPHILS # (AUTO) 6.9 K/uL (1.8-7.7); NEUTROPHILS % (AUTO) 85.7 % (42.2-75.2); PLATELET COUNT (AUTO) 187 K/uL (140-450); RED BLOOD CELL COUNT(AUTO) 3.22 MIL/uL (4.20-6.10); RED CELL DISTRIBUTION WIDTH 16.9 % (11.6-13.7)
[2023-11-02 05:57] LABS: ALBUMIN 1.7 g/dL (3.4-5.0); ANION GAP 15.3 (8-16); CALCIUM 8.9 mg/dL (8.5-10.1); CARBON DIOXIDE 26.5 mmol/L (21-32); POTASSIUM 4.8 mmol/L (3.5-5.1); TOTAL BILIRUBIN 0.3 mg/dL (0.0-1.0); TOTAL PROTEIN, SERUM 7.1 g/dL (6.4-8.2)
[2023-11-02 06:09] LABS: CREATININE 10.9 mg/dL (0.6-1.3)
[2023-11-02] MEDS: ALGINATE ROPE MC SCH (12:11)
[2023-11-02] MEDS: VANCOMYCIN 750 MG in DEXTROSE 5% 250 ML IV SCH (21:00)
[2023-11-03] VITALS (38 sets, daily range): BP systolic 88–131; BP diastolic 46–110; PULSE 70–93; RESP 20–46; TEMP 97.1–98.8; O2SAT 91–100
[2023-11-03 05:11] LABS: BASOPHILS % (AUTO) 0.2 % (0.0-2.0); EOSINOPHILS # (AUTO) 0.2 K/uL (0-0.4); EOSINOPHILS % (AUTO) 3.2 % (0.0-4.0); HEMATOCRIT 24.9 % (36-52); HEMOGLOBIN 8.3 g/dL (12.0-18.0); LYMPHOCYTES # (AUTO) 0.3 K/uL (2.0-11.5); LYMPHOCYTES % (AUTO) 4.7 % (20.5-51.1); MEAN CORPUSCULAR HEMOGLOBIN 27 pg (27-31); MEAN CORPUSCULAR HGB CONC 33 g/dL (33-37); MEAN CORPUSCULAR VOLUME 81.3 fL (80-94); MONOCYTES # (AUTO) 0.6 K/uL (0.8-1.0); NEUTROPHILS # (AUTO) 5.3 K/uL (1.8-7.7); NEUTROPHILS % (AUTO) 81.9 % (42.2-75.2); PLATELET COUNT (AUTO) 190 K/uL (140-450); RED BLOOD CELL COUNT(AUTO) 3.06 MIL/uL (4.20-6.10); RED CELL DISTRIBUTION WIDTH 16.9 % (11.6-13.7); WHITE BLOOD COUNT (AUTO) 6.4 K/uL (4.8-10.8)
[2023-11-03 05:45] LABS: ALBUMIN 1.5 g/dL (3.4-5.0); ANION GAP 18.7 (8-16); CALCIUM 8.7 mg/dL (8.5-10.1); CARBON DIOXIDE 24.7 mmol/L (21-32); POTASSIUM 5.4 mmol/L (3.5-5.1); TOTAL BILIRUBIN 0.3 mg/dL (0.0-1.0); TOTAL PROTEIN, SERUM 7.1 g/dL (6.4-8.2)
[2023-11-03 06:15] LABS: CREATININE 12.5 mg/dL (0.6-1.3)
[2023-11-03] MEDS: QUEtiapine FUMARATE 100 MG TAB PO SCH (09:12)
[2023-11-03] MEDS: ALBUMIN HUMAN 25% 100 ML IV SCH (09:49)
[2023-11-04] VITALS (35 sets, daily range): BP systolic 95–188; BP diastolic 48–105; PULSE 65–83; RESP 20–23; TEMP 97.1–98.2; O2SAT 92–100
[2023-11-04] MEDS: DEXMEDETOMIDINE HCL 100 MCG/ML 2 ML VIAL IV ONE ×2 (02:51→06:02)
[2023-11-04 05:23] LABS: BASOPHILS % (AUTO) 0.4 % (0.0-2.0); EOSINOPHILS # (AUTO) 0.2 K/uL (0-0.4); EOSINOPHILS % (AUTO) 3.4 % (0.0-4.0); HEMATOCRIT 24.1 % (36-52); LYMPHOCYTES # (AUTO) 0.4 K/uL (2.0-11.5); LYMPHOCYTES % (AUTO) 6.6 % (20.5-51.1); MEAN CORPUSCULAR HEMOGLOBIN 27 pg (27-31); MEAN CORPUSCULAR HGB CONC 33 g/dL (33-37); MEAN CORPUSCULAR VOLUME 81.7 fL (80-94); MONOCYTES # (AUTO) 0.6 K/uL (0.8-1.0); NEUTROPHILS # (AUTO) 4.5 K/uL (1.8-7.7); NEUTROPHILS % (AUTO) 78.6 % (42.2-75.2); PLATELET COUNT (AUTO) 195 K/uL (140-450); RED BLOOD CELL COUNT(AUTO) 2.95 MIL/uL (4.20-6.10); RED CELL DISTRIBUTION WIDTH 16.8 % (11.6-13.7); WHITE BLOOD COUNT (AUTO) 5.8 K/uL (4.8-10.8)
[2023-11-04 06:40] LABS: ALBUMIN 1.8 g/dL (3.4-5.0); CALCIUM 8.8 mg/dL (8.5-10.1); CARBON DIOXIDE 25.7 mmol/L (21-32); POTASSIUM 4.7 mmol/L (3.5-5.1); TOTAL BILIRUBIN 0.2 mg/dL (0.0-1.0); TOTAL PROTEIN, SERUM 7.4 g/dL (6.4-8.2)
[2023-11-04] MEDS: SENNA 8.6 MG TAB PO SCH (08:17)
[2023-11-04 09:19] LABS: BLOOD GAS HCO3 20.7 mmol/L (22-26); BLOOD GAS O2 SAT% 97.9 % (92.0-98.5); BLOOD GAS PCO2 31.9 mmHg (35-45); BLOOD GAS PH 7.431 (7.35-7.45); BLOOD GAS PO2 109.3 mmHg (75-100)
[2023-11-04] MEDS: DOCUSATE 100 MG/10 ML UDC GT PRN (20:35)
[2023-11-04] MEDS: QUEtiapine FUMARATE 100 MG TAB PO SCH (20:35)
[2023-11-05] VITALS (31 sets, daily range): BP systolic 96–123; BP diastolic 50–69; PULSE 65–77; RESP 20–22; TEMP 97.7–98.9; O2SAT 93–100
[2023-11-05 06:21] LABS: BASOPHILS % (AUTO) 0.5 % (0.0-2.0); EOSINOPHILS # (AUTO) 0.2 K/uL (0-0.4); HEMATOCRIT 24.3 % (36-52); HEMOGLOBIN 8.2 g/dL (12.0-18.0); LYMPHOCYTES # (AUTO) 0.5 K/uL (2.0-11.5); LYMPHOCYTES % (AUTO) 11.2 % (20.5-51.1); MEAN CORPUSCULAR HEMOGLOBIN 27 pg (27-31); MEAN CORPUSCULAR HGB CONC 34 g/dL (33-37); MONOCYTES # (AUTO) 0.5 K/uL (0.8-1.0); MONOCYTES % (AUTO) 10.5 % (1.7-9.3); NEUTROPHILS # (AUTO) 3.2 K/uL (1.8-7.7); NEUTROPHILS % (AUTO) 72.8 % (42.2-75.2); PLATELET COUNT (AUTO) 233 K/uL (140-450); RED CELL DISTRIBUTION WIDTH 17.1 % (11.6-13.7); WHITE BLOOD COUNT (AUTO) 4.5 K/uL (4.8-10.8)
[2023-11-05 06:34] LABS: ALBUMIN 1.6 g/dL (3.4-5.0); ANION GAP 15.2 (8-16); CALCIUM 8.9 mg/dL (8.5-10.1); CARBON DIOXIDE 27.9 mmol/L (21-32); POTASSIUM 4.1 mmol/L (3.5-5.1); TOTAL BILIRUBIN 0.2 mg/dL (0.0-1.0); TOTAL PROTEIN, SERUM 7.3 g/dL (6.4-8.2)
[2023-11-05 06:39] LABS: CREATININE 7.8 mg/dL (0.6-1.3)
[2023-11-05] MEDS: DEXMEDETOMIDINE HCL 100 MCG/ML 2 ML VIAL IV ONE (07:40)
[2023-11-05] MEDS ORDERED: EPOETIN ALFA-EPBX 10,000 UNITS/ML VIAL IV SCH (09:00)
[2023-11-05] MEDS: diazePAM 5 MG TAB PO SCH (12:19)
[2023-11-05] MEDS: LACTULOSE 20 GM/30 ML UDC GT SCH (12:19)
[2023-11-06] VITALS (32 sets, daily range): BP systolic 94–174; BP diastolic 52–94; PULSE 66–87; RESP 12–25; TEMP 97.2–98.1; O2SAT 92–100
[2023-11-06 08:24] LABS: BASOPHILS % (AUTO) 0.5 % (0.0-2.0); EOSINOPHILS # (AUTO) 0.3 K/uL (0-0.4); EOSINOPHILS % (AUTO) 6.2 % (0.0-4.0); HEMATOCRIT 24.6 % (36-52); HEMOGLOBIN 8.1 g/dL (12.0-18.0); LYMPHOCYTES # (AUTO) 0.7 K/uL (2.0-11.5); MEAN CORPUSCULAR HEMOGLOBIN 27 pg (27-31); MEAN CORPUSCULAR HGB CONC 33 g/dL (33-37); MEAN CORPUSCULAR VOLUME 81.8 fL (80-94); MONOCYTES # (AUTO) 0.4 K/uL (0.8-1.0); MONOCYTES % (AUTO) 8.9 % (1.7-9.3); NEUTROPHILS # (AUTO) 3.4 K/uL (1.8-7.7); NEUTROPHILS % (AUTO) 69.4 % (42.2-75.2); PLATELET COUNT (AUTO) 282 K/uL (140-450); RED CELL DISTRIBUTION WIDTH 16.9 % (11.6-13.7); WHITE BLOOD COUNT (AUTO) 4.8 K/uL (4.8-10.8)
[2023-11-06 08:44] LABS: ANION GAP 18.6 (8-16); POTASSIUM 4.6 mmol/L (3.5-5.1)
[2023-11-07] VITALS (32 sets, daily range): BP systolic 95–127; BP diastolic 49–87; PULSE 72–97; RESP 16–29; TEMP 97.6–98.5; O2SAT 93–100
[2023-11-07 05:09] LABS: BASOPHILS % (AUTO) 0.7 % (0.0-2.0); EOSINOPHILS # (AUTO) 0.3 K/uL (0-0.4); EOSINOPHILS % (AUTO) 6.2 % (0.0-4.0); HEMATOCRIT 24.1 % (36-52); HEMOGLOBIN 7.9 g/dL (12.0-18.0); LYMPHOCYTES # (AUTO) 0.7 K/uL (2.0-11.5); LYMPHOCYTES % (AUTO) 13.4 % (20.5-51.1); MEAN CORPUSCULAR HEMOGLOBIN 27 pg (27-31); MEAN CORPUSCULAR HGB CONC 33 g/dL (33-37); MEAN CORPUSCULAR VOLUME 81.8 fL (80-94); MONOCYTES # (AUTO) 0.5 K/uL (0.8-1.0); MONOCYTES % (AUTO) 10.3 % (1.7-9.3); NEUTROPHILS # (AUTO) 3.5 K/uL (1.8-7.7); NEUTROPHILS % (AUTO) 69.4 % (42.2-75.2); PLATELET COUNT (AUTO) 286 K/uL (140-450); RED BLOOD CELL COUNT(AUTO) 2.95 MIL/uL (4.20-6.10); RED CELL DISTRIBUTION WIDTH 17.1 % (11.6-13.7)
[2023-11-07 05:40] LABS: ALBUMIN 1.8 g/dL (3.4-5.0); ANION GAP 16.4 (8-16); CALCIUM 8.8 mg/dL (8.5-10.1); CARBON DIOXIDE 26.6 mmol/L (21-32); TOTAL BILIRUBIN 0.2 mg/dL (0.0-1.0); TOTAL PROTEIN, SERUM 7.6 g/dL (6.4-8.2)
[2023-11-07 06:46] LABS: CREATININE 7.6 mg/dL (0.6-1.3)
[2023-11-07] MEDS: EPOETIN ALFA-EPBX 10,000 UNITS/ML VIAL IV SCH (09:06)
[2023-11-07 13:07] LABS: BLOOD GAS BASE EXCESS -0.1 mmol/L (-2.0-2.0); BLOOD GAS HCO3 24.7 mmol/L (22-26); BLOOD GAS O2 SAT% 94.4 % (92.0-98.5); BLOOD GAS PCO2 40.9 mmHg (35-45); BLOOD GAS PH 7.399 (7.35-7.45); BLOOD GAS PO2 78.5 mmHg (75-100)
[2023-11-07] MEDS: QUEtiapine FUMARATE 100 MG TAB PO SCH (13:29)
[2023-11-07] MEDS: BLOOD GLUCOSE MONITORING 1 DEV DEV FS SCH (18:20)
[2023-11-08] VITALS (32 sets, daily range): BP systolic 90–232; BP diastolic 38–111; PULSE 68–103; RESP 14–24; TEMP 97.3–98.5; O2SAT 93–100
[2023-11-08 05:18] LABS: BASOPHILS % (AUTO) 0.9 % (0.0-2.0); EOSINOPHILS # (AUTO) 0.4 K/uL (0-0.4); EOSINOPHILS % (AUTO) 6.9 % (0.0-4.0); HEMATOCRIT 23.6 % (36-52); HEMOGLOBIN 7.9 g/dL (12.0-18.0); LYMPHOCYTES # (AUTO) 0.9 K/uL (2.0-11.5); LYMPHOCYTES % (AUTO) 16.6 % (20.5-51.1); MEAN CORPUSCULAR HEMOGLOBIN 28 pg (27-31); MEAN CORPUSCULAR HGB CONC 33 g/dL (33-37); MEAN CORPUSCULAR VOLUME 82.3 fL (80-94); MONOCYTES # (AUTO) 0.4 K/uL (0.8-1.0); NEUTROPHILS # (AUTO) 3.5 K/uL (1.8-7.7); NEUTROPHILS % (AUTO) 67.6 % (42.2-75.2); PLATELET COUNT (AUTO) 333 K/uL (140-450); RED BLOOD CELL COUNT(AUTO) 2.86 MIL/uL (4.20-6.10); RED CELL DISTRIBUTION WIDTH 17.5 % (11.6-13.7); WHITE BLOOD COUNT (AUTO) 5.2 K/uL (4.8-10.8)
[2023-11-08 05:53] LABS: ALBUMIN 1.8 g/dL (3.4-5.0); ANION GAP 14.4 (8-16); CALCIUM 8.9 mg/dL (8.5-10.1); CARBON DIOXIDE 27.9 mmol/L (21-32); POTASSIUM 4.3 mmol/L (3.5-5.1); TOTAL BILIRUBIN 0.2 mg/dL (0.0-1.0); TOTAL PROTEIN, SERUM 7.5 g/dL (6.4-8.2)
[2023-11-08 06:21] LABS: CREATININE 9.7 mg/dL (0.6-1.3)
[2023-11-08] MEDS ORDERED: THERAHONEY GEL 42.5 GM TP PRN (10:50)
[2023-11-08] MEDS: THERAHONEY GEL 42.5 GM TP SCH (13:00)
[2023-11-08] MEDS: HALOPERIDOL IM 5 MG/ML VIAL IM PRN (18:14)
[2023-11-08] MEDS: LORazepam 2 MG/ML VIAL IVP PRN (21:24)
[2023-11-09] VITALS (26 sets, daily range): BP systolic 145–218; BP diastolic 74–129; PULSE 86–117; RESP 10–33; TEMP 97–98.1; O2SAT 96–100
[2023-11-09 05:19] LABS: BASOPHILS % (AUTO) 0.6 % (0.0-2.0); EOSINOPHILS # (AUTO) 0.5 K/uL (0-0.4); EOSINOPHILS % (AUTO) 5.7 % (0.0-4.0); HEMATOCRIT 27.3 % (36-52); HEMOGLOBIN 8.8 g/dL (12.0-18.0); LYMPHOCYTES # (AUTO) 0.8 K/uL (2.0-11.5); LYMPHOCYTES % (AUTO) 9.6 % (20.5-51.1); MEAN CORPUSCULAR HEMOGLOBIN 27 pg (27-31); MEAN CORPUSCULAR HGB CONC 32 g/dL (33-37); MEAN CORPUSCULAR VOLUME 82.7 fL (80-94); MONOCYTES # (AUTO) 0.4 K/uL (0.8-1.0); MONOCYTES % (AUTO) 5.4 % (1.7-9.3); NEUTROPHILS # (AUTO) 6.3 K/uL (1.8-7.7); NEUTROPHILS % (AUTO) 78.7 % (42.2-75.2); PLATELET COUNT (AUTO) 382 K/uL (140-450); RED CELL DISTRIBUTION WIDTH 17.5 % (11.6-13.7)
[2023-11-09 05:59] LABS: ALBUMIN 2.2 g/dL (3.4-5.0); ANION GAP 20.7 (8-16); CALCIUM 9.3 mg/dL (8.5-10.1); CARBON DIOXIDE 22.1 mmol/L (21-32); POTASSIUM 4.8 mmol/L (3.5-5.1); TOTAL BILIRUBIN 0.3 mg/dL (0.0-1.0); TOTAL PROTEIN, SERUM 8.7 g/dL (6.4-8.2)
[2023-11-09 06:42] LABS: CREATININE 8.7 mg/dL (0.6-1.3)
[2023-11-09] MEDS: LABETALOL 20 MG/4 ML VIAL IVP PRN (08:17)
[2023-11-09] MEDS: hydrALAZINE 20 MG/ML VIAL IVP PRN (09:28)
[2023-11-09] MEDS: cloNIDine-TTS1 0.1 MG/24 HR 1 EA PATCH TD SCH (11:21)
[2023-11-09] MEDS ORDERED: ENALAPRILAT 2.5 MG/2 ML VIAL IVP PRN (18:50)
[2023-11-10] VITALS (29 sets, daily range): BP systolic 121–181; BP diastolic 60–94; PULSE 71–94; RESP 10–20; TEMP 96.8–97.8; O2SAT 74–100
[2023-11-10] MEDS: DEXMEDETOMIDINE HCL 100 MCG/ML 2 ML VIAL IV ONE (04:55)
[2023-11-10 05:32] LABS: BASOPHILS # (AUTO) 0.1 K/uL (0.00-0.22); BASOPHILS % (AUTO) 0.9 % (0.0-2.0); EOSINOPHILS # (AUTO) 0.2 K/uL (0-0.4); HEMATOCRIT 27.2 % (36-52); HEMOGLOBIN 8.9 g/dL (12.0-18.0); LYMPHOCYTES # (AUTO) 0.6 K/uL (2.0-11.5); LYMPHOCYTES % (AUTO) 7.5 % (20.5-51.1); MEAN CORPUSCULAR HEMOGLOBIN 27 pg (27-31); MEAN CORPUSCULAR HGB CONC 33 g/dL (33-37); MEAN CORPUSCULAR VOLUME 82.2 fL (80-94); MONOCYTES # (AUTO) 0.4 K/uL (0.8-1.0); MONOCYTES % (AUTO) 5.8 % (1.7-9.3); NEUTROPHILS # (AUTO) 6.3 K/uL (1.8-7.7); NEUTROPHILS % (AUTO) 82.8 % (42.2-75.2); PLATELET COUNT (AUTO) 427 K/uL (140-450); RED BLOOD CELL COUNT(AUTO) 3.31 MIL/uL (4.20-6.10); RED CELL DISTRIBUTION WIDTH 17.4 % (11.6-13.7); WHITE BLOOD COUNT (AUTO) 7.6 K/uL (4.8-10.8)
[2023-11-10 06:13] LABS: ALBUMIN 2.1 g/dL (3.4-5.0); ANION GAP 22.2 (8-16); CALCIUM 8.9 mg/dL (8.5-10.1); CARBON DIOXIDE 20.4 mmol/L (21-32); POTASSIUM 5.6 mmol/L (3.5-5.1); TOTAL BILIRUBIN 0.2 mg/dL (0.0-1.0); TOTAL PROTEIN, SERUM 8.2 g/dL (6.4-8.2)
[2023-11-10 06:23] LABS: CREATININE 10.8 mg/dL (0.6-1.3)
[2023-11-11] VITALS (28 sets, daily range): BP systolic 105–182; BP diastolic 46–127; PULSE 91–114; RESP 12–24; TEMP 97.3–98.2; O2SAT 93–100
[2023-11-11 04:46] LABS: BASOPHILS % (AUTO) 0.5 % (0.0-2.0); EOSINOPHILS # (AUTO) 0.2 K/uL (0-0.4); EOSINOPHILS % (AUTO) 3.3 % (0.0-4.0); HEMATOCRIT 27.6 % (36-52); HEMOGLOBIN 8.9 g/dL (12.0-18.0); LYMPHOCYTES # (AUTO) 0.6 K/uL (2.0-11.5); LYMPHOCYTES % (AUTO) 7.9 % (20.5-51.1); MEAN CORPUSCULAR HEMOGLOBIN 27 pg (27-31); MEAN CORPUSCULAR HGB CONC 32 g/dL (33-37); MONOCYTES # (AUTO) 0.5 K/uL (0.8-1.0); MONOCYTES % (AUTO) 6.7 % (1.7-9.3); NEUTROPHILS # (AUTO) 5.7 K/uL (1.8-7.7); PLATELET COUNT (AUTO) 368 K/uL (140-450); RED BLOOD CELL COUNT(AUTO) 3.37 MIL/uL (4.20-6.10); RED CELL DISTRIBUTION WIDTH 17.6 % (11.6-13.7)
[2023-11-11 04:58] LABS: MAGNESIUM 2.5 mg/dL (1.8-2.4); PHOSPHORUS 8.5 mg/dL (2.5-4.9)
[2023-11-11 05:07] LABS: ANION GAP 18.7 (8-16); CALCIUM 8.7 mg/dL (8.5-10.1); CARBON DIOXIDE 24.3 mmol/L (21-32)
[2023-11-11 05:26] LABS: NEUTROPHILS % (AUTO) 81.6 % (42.2-75.2)
[2023-11-11 05:31] LABS: CREATININE 10.1 mg/dL (0.6-1.3)
[2023-11-11] MEDS: DEXMEDETOMIDINE HCL 100 MCG/ML 2 ML VIAL IV ONE (06:29)
[2023-11-11] MEDS: hydrALAZINE 20 MG/ML VIAL IVP PRN (10:26)
[2023-11-11] MEDS: LORazepam 1 MG TAB PO SCH (12:24)
[2023-11-12] VITALS (24 sets, daily range): BP systolic 121–187; BP diastolic 78–99; PULSE 86–117; RESP 15–21; TEMP 97.3–98.3; O2SAT 95–100
[2023-11-12 04:36] LABS: BASOPHILS % (AUTO) 0.7 % (0.0-2.0); EOSINOPHILS # (AUTO) 0.3 K/uL (0-0.4); EOSINOPHILS % (AUTO) 3.6 % (0.0-4.0); HEMATOCRIT 26.8 % (36-52); HEMOGLOBIN 8.9 g/dL (12.0-18.0); LYMPHOCYTES # (AUTO) 0.6 K/uL (2.0-11.5); LYMPHOCYTES % (AUTO) 8.5 % (20.5-51.1); MEAN CORPUSCULAR HEMOGLOBIN 27 pg (27-31); MEAN CORPUSCULAR HGB CONC 33 g/dL (33-37); MEAN CORPUSCULAR VOLUME 80.8 fL (80-94); MONOCYTES # (AUTO) 0.7 K/uL (0.8-1.0); MONOCYTES % (AUTO) 9.6 % (1.7-9.3); NEUTROPHILS # (AUTO) 5.5 K/uL (1.8-7.7); NEUTROPHILS % (AUTO) 77.6 % (42.2-75.2); PLATELET COUNT (AUTO) 383 K/uL (140-450); RED BLOOD CELL COUNT(AUTO) 3.31 MIL/uL (4.20-6.10); RED CELL DISTRIBUTION WIDTH 17.8 % (11.6-13.7); WHITE BLOOD COUNT (AUTO) 7.1 K/uL (4.8-10.8)
[2023-11-12 04:54] LABS: ANION GAP 20.2 (8-16); CARBON DIOXIDE 23.8 mmol/L (21-32)
[2023-11-12 05:00] LABS: MAGNESIUM 2.5 mg/dL (1.8-2.4); PHOSPHORUS 6.8 mg/dL (2.5-4.9)
[2023-11-12 05:47] LABS: CALCIUM 9.4 mg/dL (8.5-10.1); CREATININE 11.7 mg/dL (0.6-1.3)
[2023-11-12] MEDS: NIFEdipine 30 MG TABER PO SCH (12:59)
[2023-11-12] MEDS ORDERED: ACETAMINOPHEN 650 MG/20.3 ML UDC PO PRN (16:50)
[2023-11-12] MEDS ORDERED: ACETAMINOPHEN 325 MG TAB PO PRN (17:15)
[2023-11-13] VITALS (11 sets, daily range): BP systolic 141–178; BP diastolic 74–115; PULSE 100–116; RESP 18–19; TEMP 97.8–98.7; O2SAT 91–99
[2023-11-13 06:26] LABS: BASOPHILS % (AUTO) 0.8 % (0.0-2.0); EOSINOPHILS # (AUTO) 0.2 K/uL (0-0.4); EOSINOPHILS % (AUTO) 2.7 % (0.0-4.0); HEMATOCRIT 26.1 % (36-52); HEMOGLOBIN 8.6 g/dL (12.0-18.0); LYMPHOCYTES # (AUTO) 0.6 K/uL (2.0-11.5); LYMPHOCYTES % (AUTO) 10.6 % (20.5-51.1); MEAN CORPUSCULAR HEMOGLOBIN 27 pg (27-31); MEAN CORPUSCULAR HGB CONC 33 g/dL (33-37); MEAN CORPUSCULAR VOLUME 81.3 fL (80-94); MONOCYTES # (AUTO) 0.7 K/uL (0.8-1.0); MONOCYTES % (AUTO) 11.5 % (1.7-9.3); NEUTROPHILS # (AUTO) 4.4 K/uL (1.8-7.7); NEUTROPHILS % (AUTO) 74.4 % (42.2-75.2); PLATELET COUNT (AUTO) 418 K/uL (140-450); RED BLOOD CELL COUNT(AUTO) 3.21 MIL/uL (4.20-6.10); RED CELL DISTRIBUTION WIDTH 17.7 % (11.6-13.7)
[2023-11-13 06:41] LABS: ANION GAP 20.4 (8-16); CALCIUM 8.8 mg/dL (8.5-10.1); CARBON DIOXIDE 23.8 mmol/L (21-32); POTASSIUM 4.2 mmol/L (3.5-5.1)
[2023-11-13 06:48] LABS: CREATININE 13.4 mg/dL (0.6-1.3)
[2023-11-13 06:51] LABS: MAGNESIUM 2.7 mg/dL (1.8-2.4); PHOSPHORUS 7.3 mg/dL (2.5-4.9)
[2023-11-13] MEDS ORDERED: NIFEdipine 30 MG TABER PO SCH (09:00)
[2023-11-14] VITALS: BP 146/71; PULSE 106; RESP 18; TEMP 98.6; O2SAT 94
[2023-11-14 00:16] VITALS: PULSE 99; RESP 18; O2SAT 97
[2023-11-14 04:00] VITALS: BP 159/92; PULSE 104; RESP 18; TEMP 98; O2SAT 93
[2023-11-14 06:57] LABS: BASOPHILS % (AUTO) 0.8 % (0.0-2.0); EOSINOPHILS # (AUTO) 0.3 K/uL (0-0.4); EOSINOPHILS % (AUTO) 5.6 % (0.0-4.0); HEMOGLOBIN 8.9 g/dL (12.0-18.0); LYMPHOCYTES # (AUTO) 0.7 K/uL (2.0-11.5); LYMPHOCYTES % (AUTO) 13.7 % (20.5-51.1); MEAN CORPUSCULAR HEMOGLOBIN 27 pg (27-31); MEAN CORPUSCULAR HGB CONC 33 g/dL (33-37); MEAN CORPUSCULAR VOLUME 82.2 fL (80-94); MONOCYTES # (AUTO) 0.5 K/uL (0.8-1.0); MONOCYTES % (AUTO) 9.8 % (1.7-9.3); NEUTROPHILS # (AUTO) 3.7 K/uL (1.8-7.7); NEUTROPHILS % (AUTO) 70.1 % (42.2-75.2); PLATELET COUNT (AUTO) 400 K/uL (140-450); RED BLOOD CELL COUNT(AUTO) 3.28 MIL/uL (4.20-6.10); WHITE BLOOD COUNT (AUTO) 5.3 K/uL (4.8-10.8)
[2023-11-14 07:28] LABS: ANION GAP 19.3 (8-16); CALCIUM 9.2 mg/dL (8.5-10.1); CARBON DIOXIDE 23.4 mmol/L (21-32); POTASSIUM 4.7 mmol/L (3.5-5.1)
[2023-11-14 07:31] LABS: CREATININE 13.4 mg/dL (0.6-1.3)
[2023-11-14 07:32] VITALS: PULSE 104; RESP 16; O2SAT 99
[2023-11-14 07:33] LABS: MAGNESIUM 2.6 mg/dL (1.8-2.4); PHOSPHORUS 7.1 mg/dL (2.5-4.9)
[2023-11-14 08:00] VITALS: BP 148/87; PULSE 103; PULSE 98; RESP 20; TEMP 97.9; O2SAT 95
[2023-11-14 13:55] VITALS: O2SAT 96
[2023-11-15] MEDS ORDERED: NIFEdipine 30 MG TABER PO SCH (09:00)
[2023-11-16] MEDS ORDERED: cloNIDine-TTS1 0.1 MG/24 HR 1 EA PATCH TD SCH (09:00)
== END 2023-11-14 16:55 | disposition home or self-care (01) | DRG 720 ==
LOC: MED 02:28 → MIC 06:40 → MTU 06:40 → MIC 18:30 → MTU 11-12 18:00
PROVIDERS: ADMIT Student in an Organized Health Care Education/Training Program; ATTEND Student in an Organized Health Care Education/Training Program
PROC: 5A1955Z Respiratory Ventilation, Greater than 96 Consecutive Hours (ICD-10-PCS; principal; 2023-10-29)
PROC: 0BH17EZ Insertion of Endotracheal Airway into Trachea, Via Natural or Artificial Opening (ICD-10-PCS; 2023-10-29)
PROC: 5A1D70Z Performance of Urinary Filtration, Intermittent, Less than 6 Hours Per Day (ICD-10-PCS; 2023-10-30)
PROC: 02HV33Z Insertion of Infusion Device into Superior Vena Cava, Percutaneous Approach (ICD-10-PCS; 2023-10-30)
PROC: B548ZZA Ultrasonography of Superior Vena Cava, Guidance (ICD-10-PCS; 2023-10-30)
PROC: 5A1D70Z Performance of Urinary Filtration, Intermittent, Less than 6 Hours Per Day (ICD-10-PCS; 2023-10-31)
PROC: 5A1D70Z Performance of Urinary Filtration, Intermittent, Less than 6 Hours Per Day (ICD-10-PCS; 2023-11-01)
PROC: 5A1D70Z Performance of Urinary Filtration, Intermittent, Less than 6 Hours Per Day (ICD-10-PCS; 2023-11-02)
PROC: 5A1D70Z Performance of Urinary Filtration, Intermittent, Less than 6 Hours Per Day (ICD-10-PCS; 2023-11-04)
PROC: 5A1D70Z Performance of Urinary Filtration, Intermittent, Less than 6 Hours Per Day (ICD-10-PCS; 2023-11-05)
PROC: 5A1D70Z Performance of Urinary Filtration, Intermittent, Less than 6 Hours Per Day (ICD-10-PCS; 2023-11-08)
PROC: 5A1D70Z Performance of Urinary Filtration, Intermittent, Less than 6 Hours Per Day (ICD-10-PCS; 2023-11-09)
PROC: 5A1D70Z Performance of Urinary Filtration, Intermittent, Less than 6 Hours Per Day (ICD-10-PCS; 2023-11-12)
PROC: 5A1D70Z Performance of Urinary Filtration, Intermittent, Less than 6 Hours Per Day (ICD-10-PCS; 2023-11-14)
DX: A41.9 Sepsis, unspecified organism (principal); J96.01 Acute respiratory failure with hypoxia; J69.0 Pneumonitis due to inhalation of food and vomit; G93.41 Metabolic encephalopathy; I13.2 Hypertensive heart and chronic kidney disease with heart failure and with stage 5 chronic kidney disease, or end stage renal disease; D63.8 Anemia in other chronic diseases classified elsewhere; E11.649 Type 2 diabetes mellitus with hypoglycemia without coma; E83.39 Other disorders of phosphorus metabolism; N18.6 End stage renal disease; E11.22 Type 2 diabetes mellitus with diabetic chronic kidney disease; Z99.2 Dependence on renal dialysis; E87.5 Hyperkalemia; E11.65 Type 2 diabetes mellitus with hyperglycemia; R33.9 Retention of urine, unspecified; Z96.651 Presence of right artificial knee joint; R31.9 Hematuria, unspecified; Z91.158 Patient's noncompliance with renal dialysis for other reason
CPT/HCPCS: 36415; 36600; 70450; 71045; 71250; 76856; 80048; 80053; 80202; 80305; 81001; 82803; 82948; 83540; 83735; 84100; 84132; 84484; 85025; 85730; 86704; 86706; 86708; 86709; 86803; 87040; 87070; 87075; 87081; 87086; 87205; 87340; 89220; 92526; 93005; 94002; 94003; 94640; 96374; 96375; 97163-GP; 99291; J0330; J0360; J0610; J1630; J1644; J1815; J2060; J2250; J2354; J2543; J2704; J2997; J3010; J3370; J3372; J3490; J7030; J7060; J7613; P9046; Q0092; Q5106

== ENCOUNTER 2023-12-04 22:27 | Inpatient (IN) | payer MEDICAID ==
[~2023-12-04] VITALS: Ht 167.6 cm; Wt 86.8 kg
[~2023-12-04 22:27] MED LIST changes: -ENAL10TA51 PO; -TRA200 PO
[2023-12-04 22:28] VITALS: BP 202/130; PULSE 87; RESP 35; TEMP 97; O2SAT 86
[2023-12-04] MEDS ORDERED: DEXTROSE 50% 50 ML SYR IVP ONE (22:53)
[2023-12-04 22:58] VITALS: PULSE 97; PULSE 98; RESP 23; O2SAT 98
[2023-12-04] MEDS: DEXTROSE 50% 50 ML SYR IVP ONE (23:00)
[2023-12-04 23:20] LABS: APPEARANCE,URINE CLEAR (CLEAR); BILIRUBIN,URINE NEGATIVE (NEGATIVE); BLOOD, URINE 1+ (NEGATIVE); COLOR,URINE YELLOW (YELLOW); LEUKOCYTE ESTERASE ,URINE NEGATIVE (NEGATIVE); NITRITE, URINE NEGATIVE (NEGATIVE); PROTEIN,URINE 2+ (NEGATIVE); UGLUCOSE TRACE (NEGATIVE); UROBILINOGEN,URINE 0.2 EU/dL (0.2 - 1)
[2023-12-04 23:27] LABS: WBC,URINE 0-5 /HPF (0-5)
[2023-12-04 23:28] LABS: BACTERIA,URINE 0-2 /HPF (None Seen); MUCUS,URINE None Seen /LPF (None Seen); SQUAMOUS EPITHELIAL CELL,UR 0-3 (FEW) /LPF (0-3 (FEW))
[2023-12-04] MEDS: LORazepam 2 MG/ML VIAL IVP ONE (23:35)
[2023-12-04 23:40] LABS: ALANINE AMINOTRANSFERASE 46 U/L (12-78); ALKALINE PHOSPHATASE 90 U/L (50-136); ANION GAP 24.9 (8-16); ASPARTATE AMINOTRANSFERASE 53 U/L (15-37); CARBON DIOXIDE 19.4 mmol/L (21-32); CHLORIDE 99 mmol/L (98-107); GLUCOSE 108 mg/dL (74-106); SODIUM SERUM 135 mmol/L (136-145); TOTAL BILIRUBIN 0.5 mg/dL (0.0-1.0); TOTAL PROTEIN, SERUM 9.1 g/dL (6.4-8.2)
[2023-12-04 23:59] LABS: CREATININE < 0.6 mg/dL (0.6-1.3); GFR ARICAN-AMERICAN 186 mL/min (>90); GFR NON ARICAN-AMERICAN 153 mL/min (>90); UREA NITROGEN, BLOOD 109 mg/dL (7-18)
[2023-12-05] VITALS (25 sets, daily range): BP systolic 134–198; BP diastolic 69–125; PULSE 91–200; RESP 11–22; TEMP 97.6–97.9; O2SAT 100
[2023-12-05 00:02] LABS: CALCIUM 0.8 mg/dL (8.5-10.1); POTASSIUM 8.3 mmol/L (3.5-5.1)
[2023-12-05] MEDS: KETAMINE HCL 50 mg/5 mL UD SYRINGE IV ONE ×2 (00:20→01:56)
[2023-12-05] MEDS ORDERED: KETAMINE 500 MG/5 ML VIAL ONE (00:24)
[2023-12-05] MEDS ORDERED: INTUBATION KIT MC ONE (00:36)
[2023-12-05] MEDS: ETOMIDATE 20 MG/10 ML VIAL IVP ONE (00:38)
[2023-12-05] MEDS: ROCURONIUM 50 MG/5 ML VIAL IV ONE (00:41)
[2023-12-05] MEDS ORDERED: PROPOFOL 200 MG/20 ML VIAL IV ONE (00:46)
[2023-12-05] MEDS ORDERED: PROPOFOL 1000 MG/100 ML PREMIX 100 ML IV ONE ×2 (00:47→05:01)
[2023-12-05] MEDS: PROPOFOL 1000 MG/100 ML PREMIX 100 ML IV ONE ×3 (00:50→08:47)
[2023-12-05] MEDS: NITROGLYCERIN 50 MG/D5W PREMIX 250 ML IV ONE (00:50)
[2023-12-05 01:11] LABS: BASOPHILS # (AUTO) 0.1 K/uL (0.00-0.22); BASOPHILS % (AUTO) 0.9 % (0.0-2.0); EOSINOPHILS # (AUTO) 0.1 K/uL (0-0.4); EOSINOPHILS % (AUTO) 1.5 % (0.0-4.0); HEMOGLOBIN 9.1 g/dL (12.0-18.0); LYMPHOCYTES # (AUTO) 0.8 K/uL (2.0-11.5); LYMPHOCYTES % (AUTO) 11.3 % (20.5-51.1); MEAN CORPUSCULAR HEMOGLOBIN 27 pg (27-31); MEAN CORPUSCULAR HGB CONC 32 g/dL (33-37); MEAN CORPUSCULAR VOLUME 84.5 fL (80-94); MONOCYTES # (AUTO) 0.3 K/uL (0.8-1.0); MONOCYTES % (AUTO) 4.3 % (1.7-9.3); NEUTROPHILS # (AUTO) 5.8 K/uL (1.8-7.7); PLATELET COUNT (AUTO) 163 K/uL (140-450); RED BLOOD CELL COUNT(AUTO) 3.43 MIL/uL (4.20-6.10)
[2023-12-05] MEDS ORDERED: CALCIUM GLUC 1 GM/50 mL NS BAG 50 ML IV ONE (01:14)
[2023-12-05 01:26] LABS: LACTIC ACID 1.2 mmol/L (0.4-2.0)
[2023-12-05 01:33] LABS: MAGNESIUM 2.1 mg/dL (1.8-2.4)
[2023-12-05] MEDS: DEXTROSE 50% 50 ML SYR IVP ONE ×2 (01:41→06:53)
[2023-12-05] MEDS: INSULIN REGULAR, HUMAN 100 UNIT/ML VIAL IV ONE (01:42)
[2023-12-05] MEDS: CALCIUM GLUC 1 GM/50 mL NS BAG 50 ML IV ONE (01:43)
[2023-12-05 01:48] LABS: PHOSPHORUS 11.6 mg/dL (2.5-4.9)
[2023-12-05 02:02] LABS: BLOOD GAS BASE EXCESS -11.8 mmol/L (-2.0-2.0); BLOOD GAS HCO3 17.8 mmol/L (22-26); BLOOD GAS PCO2 61.5 mmHg (35-45); BLOOD GAS PO2 179.7 mmHg (75-100)
[2023-12-05 02:03] LABS: BLOOD GAS O2 SAT% 98.8 % (92.0-98.5)
[2023-12-05] MEDS: FUROSEMIDE 100 MG/10 ML VIAL IVP ONE (02:17)
[2023-12-05 02:21] LABS: FLU A ANTIGEN negative (NEGATIVE)
[2023-12-05 02:22] LABS: FLU B ANTIGEN POSITIVE (NEGATIVE)
[2023-12-05] MEDS ORDERED: PROPOFOL 1000 MG/100 ML PREMIX 100 ML IV PRN (02:30)
[2023-12-05] MEDS ORDERED: NITROGLYCERIN 50 MG/D5W PREMIX 250 ML IV ONE (05:03)
[2023-12-05] MEDS: MIDAZOLAM MDV 50 MG/10 ML VIAL IV ONE (05:45)
[2023-12-05] MEDS: BLOOD GLUCOSE MONITORING 1 DEV DEV FS SCH ×2 (06:00→18:45)
[2023-12-05 07:15] LABS: BASOPHILS # (AUTO) 0.1 K/uL (0.00-0.22); BASOPHILS % (AUTO) 1.4 % (0.0-2.0); EOSINOPHILS % (AUTO) 0.5 % (0.0-4.0); HEMATOCRIT 23.5 % (36-52); HEMOGLOBIN 7.6 g/dL (12.0-18.0); LYMPHOCYTES # (AUTO) 0.6 K/uL (2.0-11.5); LYMPHOCYTES % (AUTO) 10.2 % (20.5-51.1); MEAN CORPUSCULAR HEMOGLOBIN 27 pg (27-31); MEAN CORPUSCULAR HGB CONC 33 g/dL (33-37); MEAN CORPUSCULAR VOLUME 83.9 fL (80-94); MONOCYTES # (AUTO) 0.4 K/uL (0.8-1.0); MONOCYTES % (AUTO) 6.5 % (1.7-9.3); NEUTROPHILS # (AUTO) 4.7 K/uL (1.8-7.7); NEUTROPHILS % (AUTO) 81.4 % (42.2-75.2); PLATELET COUNT (AUTO) 116 K/uL (140-450); RED CELL DISTRIBUTION WIDTH 17.9 % (11.6-13.7); WHITE BLOOD COUNT (AUTO) 5.8 K/uL (4.8-10.8)
[2023-12-05] MEDS ORDERED: OSELTAMIVIR PHOSPHATE 30 MG CAP NG SCH (09:00)
[2023-12-05] MEDS ORDERED: OSELTAMIVIR PHOSPHATE 6 MG/ML SUSPENSION PO SCH (09:00)
[2023-12-05 09:24] LABS: ALBUMIN 2.7 g/dL (3.4-5.0); ANION GAP 21.9 (8-16); CALCIUM 7.6 mg/dL (8.5-10.1); CARBON DIOXIDE 20.8 mmol/L (21-32); TOTAL BILIRUBIN 0.4 mg/dL (0.0-1.0)
[2023-12-05] MEDS ORDERED: MIDAZOLAM MDV 50 MG in NACL 0.9% 40 ML IV PRN (09:25)
[2023-12-05 09:27] LABS: POTASSIUM 6.7 mmol/L (3.5-5.1)
[2023-12-05 09:29] LABS: CREATININE 15.6 mg/dL (0.6-1.3)
[2023-12-05] MEDS: NITROGLYCERIN 50 MG/D5W PREMIX 250 ML IV PRN (10:21)
[2023-12-05] MEDS: PROPOFOL 1000 MG/100 ML PREMIX 100 ML IV PRN (13:03)
[2023-12-05] MEDS: FUROSEMIDE 20 MG/2 ML VIAL IVP SCH ×2 (13:19→22:01)
[2023-12-05] MEDS: cloNIDine-TTS1 0.1 MG/24 HR 1 EA PATCH TD SCH (13:22)
[2023-12-05] MEDS: DEXT 5% / NACL 0.45% 1,000 ML IV SCH (14:23)
[2023-12-05] MEDS: NIFEdipine 60 MG TABER PO SCH (16:57)
[2023-12-05] MEDS: EPOETIN ALFA-EPBX 10,000 UNITS/ML VIAL IV SCH (16:58)
[2023-12-05] MEDS: OSELTAMIVIR PHOSPHATE 30 MG CAP PO SCH (16:58)
[2023-12-05] MEDS: MIDAZOLAM MDV 50 MG in NACL 0.9% 40 ML IV PRN (17:06)
[2023-12-05 19:34] LABS: ANION GAP 15.5 (8-16); CALCIUM 8.4 mg/dL (8.5-10.1); CARBON DIOXIDE 25.9 mmol/L (21-32); POTASSIUM 4.4 mmol/L (3.5-5.1)
[2023-12-05 19:37] LABS: CREATININE 10.2 mg/dL (0.6-1.3)
[2023-12-06] VITALS (28 sets, daily range): BP systolic 110–176; BP diastolic 56–115; PULSE 79–112; RESP 6–22; TEMP 97.8–98.5; O2SAT 71–100
[2023-12-06 05:53] LABS: BASOPHILS % (AUTO) 0.6 % (0.0-2.0); EOSINOPHILS # (AUTO) 0.1 K/uL (0-0.4); EOSINOPHILS % (AUTO) 1.9 % (0.0-4.0); HEMATOCRIT 26.1 % (36-52); HEMOGLOBIN 8.6 g/dL (12.0-18.0); LYMPHOCYTES # (AUTO) 0.4 K/uL (2.0-11.5); LYMPHOCYTES % (AUTO) 7.9 % (20.5-51.1); MEAN CORPUSCULAR HEMOGLOBIN 27 pg (27-31); MEAN CORPUSCULAR HGB CONC 33 g/dL (33-37); MEAN CORPUSCULAR VOLUME 82.3 fL (80-94); MONOCYTES # (AUTO) 0.5 K/uL (0.8-1.0); MONOCYTES % (AUTO) 9.4 % (1.7-9.3); NEUTROPHILS % (AUTO) 80.2 % (42.2-75.2); PLATELET COUNT (AUTO) 118 K/uL (140-450); RED BLOOD CELL COUNT(AUTO) 3.17 MIL/uL (4.20-6.10); RED CELL DISTRIBUTION WIDTH 17.5 % (11.6-13.7)
[2023-12-06 06:31] LABS: ALBUMIN 2.3 g/dL (3.4-5.0); ANION GAP 14.9 (8-16); CALCIUM 8.1 mg/dL (8.5-10.1); MAGNESIUM 1.8 mg/dL (1.8-2.4); POTASSIUM 4.9 mmol/L (3.5-5.1); TOTAL BILIRUBIN 0.2 mg/dL (0.0-1.0); TOTAL PROTEIN, SERUM 7.5 g/dL (6.4-8.2)
[2023-12-06 06:32] LABS: CREATININE 10.6 mg/dL (0.6-1.3)
[2023-12-06] MEDS: MIDAZOLAM MDV 100 MG in NACL 0.9% 80 ML IV PRN (11:48)
[2023-12-06] MEDS ORDERED: THERAHONEY GEL 42.5 GM TP PRN (12:05)
[2023-12-06] MEDS ORDERED: FOAM DRESSING TP PRN (12:05)
[2023-12-06] MEDS: BLOOD GLUCOSE MONITORING 1 DEV DEV FS SCH (12:25)
[2023-12-06] MEDS: FOAM DRESSING TP SCH (13:00)
[2023-12-06] MEDS: DEXMEDETOMIDINE HCL 400 MCG in NACL 0.9% 96 ML IV PRN (13:12)
[2023-12-06] MEDS: THERAHONEY GEL 42.5 GM TP SCH (14:16)
[2023-12-06] MEDS: DEXT 5% / NACL 0.45% 1,000 ML IV ONE (21:41)
[2023-12-07] VITALS (33 sets, daily range): BP systolic 110–163; BP diastolic 62–95; PULSE 60–84; RESP 15–22; TEMP 96–98.2; O2SAT 91–100
[2023-12-07] MEDS: DEXMEDETOMIDINE HCL 100 MCG/ML 2 ML VIAL IV ONE ×2 (02:51→06:21)
[2023-12-07 05:09] LABS: BASOPHILS % (AUTO) 0.4 % (0.0-2.0); EOSINOPHILS # (AUTO) 0.1 K/uL (0-0.4); EOSINOPHILS % (AUTO) 1.8 % (0.0-4.0); HEMATOCRIT 26.6 % (36-52); HEMOGLOBIN 8.8 g/dL (12.0-18.0); LYMPHOCYTES # (AUTO) 0.3 K/uL (2.0-11.5); LYMPHOCYTES % (AUTO) 7.7 % (20.5-51.1); MEAN CORPUSCULAR HEMOGLOBIN 27 pg (27-31); MEAN CORPUSCULAR HGB CONC 33 g/dL (33-37); MEAN CORPUSCULAR VOLUME 80.9 fL (80-94); MONOCYTES # (AUTO) 0.4 K/uL (0.8-1.0); MONOCYTES % (AUTO) 8.9 % (1.7-9.3); NEUTROPHILS # (AUTO) 3.3 K/uL (1.8-7.7); NEUTROPHILS % (AUTO) 81.2 % (42.2-75.2); PLATELET COUNT (AUTO) 113 K/uL (140-450); RED BLOOD CELL COUNT(AUTO) 3.29 MIL/uL (4.20-6.10); RED CELL DISTRIBUTION WIDTH 17.6 % (11.6-13.7)
[2023-12-07 05:53] LABS: ALBUMIN 2.2 g/dL (3.4-5.0); ANION GAP 15.4 (8-16); CALCIUM 8.5 mg/dL (8.5-10.1); CARBON DIOXIDE 24.9 mmol/L (21-32); MAGNESIUM 1.9 mg/dL (1.8-2.4); POTASSIUM 4.3 mmol/L (3.5-5.1); TOTAL BILIRUBIN 0.3 mg/dL (0.0-1.0); TOTAL PROTEIN, SERUM 7.3 g/dL (6.4-8.2)
[2023-12-07 05:59] LABS: CREATININE 8.3 mg/dL (0.6-1.3)
[2023-12-07] MEDS: QUEtiapine FUMARATE 25 MG TAB PO SCH (10:09)
[2023-12-07] MEDS: fentaNYL citrate 1 MG in NACL 0.9% 80 ML IV PRN (10:18)
[2023-12-08] VITALS (32 sets, daily range): BP systolic 16–163; BP diastolic 66–101; PULSE 40–81; RESP 22–23; TEMP 97–97.8; O2SAT 96–100
[2023-12-08 06:18] LABS: BASOPHILS % (AUTO) 0.5 % (0.0-2.0); EOSINOPHILS # (AUTO) 0.1 K/uL (0-0.4); HEMATOCRIT 29.5 % (36-52); HEMOGLOBIN 9.8 g/dL (12.0-18.0); LYMPHOCYTES # (AUTO) 0.7 K/uL (2.0-11.5); LYMPHOCYTES % (AUTO) 18.5 % (20.5-51.1); MEAN CORPUSCULAR HEMOGLOBIN 27 pg (27-31); MEAN CORPUSCULAR HGB CONC 33 g/dL (33-37); MEAN CORPUSCULAR VOLUME 81.8 fL (80-94); MONOCYTES # (AUTO) 0.3 K/uL (0.8-1.0); MONOCYTES % (AUTO) 7.2 % (1.7-9.3); NEUTROPHILS # (AUTO) 2.5 K/uL (1.8-7.7); NEUTROPHILS % (AUTO) 69.8 % (42.2-75.2); PLATELET COUNT (AUTO) 138 K/uL (140-450); RED BLOOD CELL COUNT(AUTO) 3.61 MIL/uL (4.20-6.10); RED CELL DISTRIBUTION WIDTH 17.3 % (11.6-13.7); WHITE BLOOD COUNT (AUTO) 3.6 K/uL (4.8-10.8)
[2023-12-08 06:40] LABS: ALBUMIN 2.1 g/dL (3.4-5.0); ANION GAP 16.9 (8-16); CALCIUM 8.4 mg/dL (8.5-10.1); CARBON DIOXIDE 25.2 mmol/L (21-32); MAGNESIUM 1.9 mg/dL (1.8-2.4); POTASSIUM 4.1 mmol/L (3.5-5.1); TOTAL BILIRUBIN 0.3 mg/dL (0.0-1.0); TOTAL PROTEIN, SERUM 7.5 g/dL (6.4-8.2)
[2023-12-08 06:41] LABS: CREATININE 7.3 mg/dL (0.6-1.3)
[2023-12-08] MEDS: MIDAZOLAM MDV 50 MG/10 ML VIAL IV ONE ×2 (06:57)
[2023-12-08] MEDS: QUEtiapine FUMARATE 25 MG TAB NG SCH (21:09)
[2023-12-09] VITALS (30 sets, daily range): BP systolic 96–175; BP diastolic 53–94; PULSE 66–110; RESP 20–22; TEMP 98.1–99.4; O2SAT 84–100
[2023-12-09 06:20] LABS: BASOPHILS % (AUTO) 0.6 % (0.0-2.0); EOSINOPHILS # (AUTO) 0.2 K/uL (0-0.4); HEMATOCRIT 27.9 % (36-52); HEMOGLOBIN 9.5 g/dL (12.0-18.0); LYMPHOCYTES # (AUTO) 0.6 K/uL (2.0-11.5); LYMPHOCYTES % (AUTO) 8.6 % (20.5-51.1); MEAN CORPUSCULAR HEMOGLOBIN 28 pg (27-31); MEAN CORPUSCULAR HGB CONC 34 g/dL (33-37); MEAN CORPUSCULAR VOLUME 81.9 fL (80-94); MONOCYTES # (AUTO) 0.4 K/uL (0.8-1.0); MONOCYTES % (AUTO) 6.5 % (1.7-9.3); NEUTROPHILS # (AUTO) 5.3 K/uL (1.8-7.7); NEUTROPHILS % (AUTO) 81.3 % (42.2-75.2); PLATELET COUNT (AUTO) 154 K/uL (140-450); RED BLOOD CELL COUNT(AUTO) 3.41 MIL/uL (4.20-6.10); RED CELL DISTRIBUTION WIDTH 17.9 % (11.6-13.7); WHITE BLOOD COUNT (AUTO) 6.5 K/uL (4.8-10.8)
[2023-12-09 07:10] LABS: ALBUMIN 2.1 g/dL (3.4-5.0); ANION GAP 17.5 (8-16); CALCIUM 7.6 mg/dL (8.5-10.1); CARBON DIOXIDE 24.5 mmol/L (21-32); MAGNESIUM 1.7 mg/dL (1.8-2.4); TOTAL BILIRUBIN 0.3 mg/dL (0.0-1.0); TOTAL PROTEIN, SERUM 7.5 g/dL (6.4-8.2)
[2023-12-09] MEDS: QUEtiapine FUMARATE 25 MG TAB NG SCH (09:00)
[2023-12-09] MEDS: DEXTROSE 50% 50 ML SYR IVP PRN (13:42)
[2023-12-09] MEDS: DEXT 5% / NACL 0.9% 500 ML IV SCH (18:48)
[2023-12-10] VITALS (28 sets, daily range): BP systolic 84–158; BP diastolic 44–91; PULSE 76–92; RESP 22–24; TEMP 97.4–98.2; O2SAT 93–100
[2023-12-10 06:42] LABS: BASOPHILS % (AUTO) 0.2 % (0.0-2.0); EOSINOPHILS # (AUTO) 0.2 K/uL (0-0.4); EOSINOPHILS % (AUTO) 1.4 % (0.0-4.0); HEMATOCRIT 26.1 % (36-52); HEMOGLOBIN 8.5 g/dL (12.0-18.0); LYMPHOCYTES # (AUTO) 0.7 K/uL (2.0-11.5); LYMPHOCYTES % (AUTO) 6.3 % (20.5-51.1); MEAN CORPUSCULAR HEMOGLOBIN 26 pg (27-31); MEAN CORPUSCULAR HGB CONC 33 g/dL (33-37); MEAN CORPUSCULAR VOLUME 81.4 fL (80-94); MONOCYTES # (AUTO) 0.6 K/uL (0.8-1.0); MONOCYTES % (AUTO) 5.1 % (1.7-9.3); PLATELET COUNT (AUTO) 146 K/uL (140-450); RED BLOOD CELL COUNT(AUTO) 3.21 MIL/uL (4.20-6.10); RED CELL DISTRIBUTION WIDTH 17.4 % (11.6-13.7); WHITE BLOOD COUNT (AUTO) 11.5 K/uL (4.8-10.8)
[2023-12-10 06:53] LABS: MAGNESIUM 1.5 mg/dL (1.8-2.4); TOTAL BILIRUBIN 0.2 mg/dL (0.0-1.0); TOTAL PROTEIN, SERUM 7.4 g/dL (6.4-8.2)
[2023-12-10 06:56] LABS: CREATININE 8.5 mg/dL (0.6-1.3)
[2023-12-10] MEDS: CIPROFLOXACIN 400 MG/200ML-D5W 200 ML IV SCH (15:33)
[2023-12-11] VITALS (30 sets, daily range): BP systolic 6–172; BP diastolic 44–83; PULSE 78–115; RESP 12–24; TEMP 81–100.6; O2SAT 77–100
[2023-12-11 06:21] LABS: BASOPHILS % (AUTO) 0.2 % (0.0-2.0); EOSINOPHILS # (AUTO) 0.2 K/uL (0-0.4); EOSINOPHILS % (AUTO) 1.8 % (0.0-4.0); HEMATOCRIT 26.1 % (36-52); HEMOGLOBIN 8.5 g/dL (12.0-18.0); LYMPHOCYTES # (AUTO) 0.7 K/uL (2.0-11.5); LYMPHOCYTES % (AUTO) 5.6 % (20.5-51.1); MEAN CORPUSCULAR HEMOGLOBIN 27 pg (27-31); MEAN CORPUSCULAR HGB CONC 33 g/dL (33-37); MEAN CORPUSCULAR VOLUME 82.4 fL (80-94); MONOCYTES # (AUTO) 0.7 K/uL (0.8-1.0); MONOCYTES % (AUTO) 5.8 % (1.7-9.3); NEUTROPHILS # (AUTO) 10.3 K/uL (1.8-7.7); NEUTROPHILS % (AUTO) 86.6 % (42.2-75.2); PLATELET COUNT (AUTO) 178 K/uL (140-450); RED BLOOD CELL COUNT(AUTO) 3.17 MIL/uL (4.20-6.10); RED CELL DISTRIBUTION WIDTH 17.8 % (11.6-13.7); WHITE BLOOD COUNT (AUTO) 11.8 K/uL (4.8-10.8)
[2023-12-11 06:51] LABS: ALBUMIN 1.9 g/dL (3.4-5.0); ANION GAP 18.6 (8-16); MAGNESIUM 1.9 mg/dL (1.8-2.4); POTASSIUM 4.6 mmol/L (3.5-5.1); TOTAL BILIRUBIN 0.2 mg/dL (0.0-1.0); TOTAL PROTEIN, SERUM 7.4 g/dL (6.4-8.2)
[2023-12-11] MEDS ORDERED: CIPROFLOXACIN 250 MG TAB NG SCH (09:00)
[2023-12-11 10:53] LABS: BLOOD GAS PCO2 37.6 mmHg (35-45); BLOOD GAS PH 7.349 (7.35-7.45)
[2023-12-11 10:54] LABS: BLOOD GAS BASE EXCESS -4.9 mmol/L (-2.0-2.0); BLOOD GAS HCO3 20.2 mmol/L (22-26); BLOOD GAS O2 SAT% 98.6 % (92.0-98.5); BLOOD GAS PO2 131.3 mmHg (75-100)
[2023-12-11] MEDS: ALTEPLASE 2 MG VIAL MC SCH ×2 (14:25)
[2023-12-11] MEDS: ACETAMINOPHEN 650 MG/20.3 ML UDC NG PRN (22:19)
[2023-12-12] VITALS (33 sets, daily range): BP systolic 85–159; BP diastolic 48–82; PULSE 75–114; RESP 22; TEMP 98.3–99.5; O2SAT 93–100
[2023-12-12 06:20] LABS: BASOPHILS % (AUTO) 0.4 % (0.0-2.0); EOSINOPHILS # (AUTO) 0.1 K/uL (0-0.4); EOSINOPHILS % (AUTO) 0.8 % (0.0-4.0); HEMOGLOBIN 8.9 g/dL (12.0-18.0); LYMPHOCYTES # (AUTO) 0.8 K/uL (2.0-11.5); LYMPHOCYTES % (AUTO) 6.4 % (20.5-51.1); MEAN CORPUSCULAR HEMOGLOBIN 27 pg (27-31); MEAN CORPUSCULAR HGB CONC 33 g/dL (33-37); MONOCYTES % (AUTO) 8.1 % (1.7-9.3); NEUTROPHILS # (AUTO) 10.7 K/uL (1.8-7.7); NEUTROPHILS % (AUTO) 84.3 % (42.2-75.2); PLATELET COUNT (AUTO) 234 K/uL (140-450); RED BLOOD CELL COUNT(AUTO) 3.33 MIL/uL (4.20-6.10); RED CELL DISTRIBUTION WIDTH 17.1 % (11.6-13.7); WHITE BLOOD COUNT (AUTO) 12.7 K/uL (4.8-10.8)
[2023-12-12] MEDS: NOREPINEPHRINE 8 MG in DEXTROSE 5% 250 ML IV PRN (06:39)
[2023-12-12 06:52] LABS: ANION GAP 16.5 (8-16); CALCIUM 8.7 mg/dL (8.5-10.1); POTASSIUM 4.5 mmol/L (3.5-5.1); TOTAL BILIRUBIN 0.3 mg/dL (0.0-1.0); TOTAL PROTEIN, SERUM 6.9 g/dL (6.4-8.2)
[2023-12-12 07:08] LABS: CREATININE 9.7 mg/dL (0.6-1.3)
[2023-12-13] VITALS (30 sets, daily range): BP systolic 89–145; BP diastolic 44–79; PULSE 69–92; RESP 22; TEMP 97.2–99.2; O2SAT 95–100
[2023-12-13 05:30] LABS: BASOPHILS % (AUTO) 0.3 % (0.0-2.0); EOSINOPHILS # (AUTO) 0.2 K/uL (0-0.4); EOSINOPHILS % (AUTO) 1.6 % (0.0-4.0); HEMATOCRIT 25.4 % (36-52); HEMOGLOBIN 8.3 g/dL (12.0-18.0); LYMPHOCYTES # (AUTO) 0.9 K/uL (2.0-11.5); LYMPHOCYTES % (AUTO) 6.7 % (20.5-51.1); MEAN CORPUSCULAR HEMOGLOBIN 26 pg (27-31); MEAN CORPUSCULAR HGB CONC 33 g/dL (33-37); MEAN CORPUSCULAR VOLUME 80.7 fL (80-94); MONOCYTES # (AUTO) 1.2 K/uL (0.8-1.0); MONOCYTES % (AUTO) 9.1 % (1.7-9.3); NEUTROPHILS # (AUTO) 11.3 K/uL (1.8-7.7); NEUTROPHILS % (AUTO) 82.3 % (42.2-75.2); PLATELET COUNT (AUTO) 263 K/uL (140-450); RED BLOOD CELL COUNT(AUTO) 3.14 MIL/uL (4.20-6.10); RED CELL DISTRIBUTION WIDTH 17.1 % (11.6-13.7); WHITE BLOOD COUNT (AUTO) 13.7 K/uL (4.8-10.8)
[2023-12-13 06:14] LABS: ALBUMIN 1.7 g/dL (3.4-5.0); ANION GAP 20.6 (8-16); CALCIUM 8.7 mg/dL (8.5-10.1); CARBON DIOXIDE 21.3 mmol/L (21-32); MAGNESIUM 2.1 mg/dL (1.8-2.4); POTASSIUM 4.9 mmol/L (3.5-5.1); TOTAL BILIRUBIN 0.3 mg/dL (0.0-1.0); TOTAL PROTEIN, SERUM 6.5 g/dL (6.4-8.2)
[2023-12-13 06:20] LABS: CREATININE 11.4 mg/dL (0.6-1.3)
[2023-12-13] MEDS: INSULIN LISPRO SLIDING SCALE 100 UNITS/ML VIAL SUBQ PRN (06:22)
[2023-12-13] MEDS: QUEtiapine FUMARATE 100 MG TAB NG SCH (13:45)
[2023-12-14] VITALS (36 sets, daily range): BP systolic 95–165; BP diastolic 50–89; PULSE 66–94; RESP 20–22; TEMP 97.2–97.6; O2SAT 95–100
[2023-12-14 05:54] LABS: BASOPHILS # (AUTO) 0.1 K/uL (0.00-0.22); BASOPHILS % (AUTO) 0.7 % (0.0-2.0); EOSINOPHILS # (AUTO) 0.3 K/uL (0-0.4); EOSINOPHILS % (AUTO) 3.6 % (0.0-4.0); HEMATOCRIT 20.9 % (36-52); HEMOGLOBIN 7.1 g/dL (12.0-18.0); LYMPHOCYTES # (AUTO) 0.6 K/uL (2.0-11.5); MEAN CORPUSCULAR HEMOGLOBIN 28 pg (27-31); MEAN CORPUSCULAR HGB CONC 34 g/dL (33-37); MEAN CORPUSCULAR VOLUME 80.8 fL (80-94); MONOCYTES # (AUTO) 0.8 K/uL (0.8-1.0); MONOCYTES % (AUTO) 8.8 % (1.7-9.3); NEUTROPHILS # (AUTO) 7.1 K/uL (1.8-7.7); NEUTROPHILS % (AUTO) 79.9 % (42.2-75.2); PLATELET COUNT (AUTO) 192 K/uL (140-450); RED BLOOD CELL COUNT(AUTO) 2.59 MIL/uL (4.20-6.10); RED CELL DISTRIBUTION WIDTH 17.5 % (11.6-13.7); WHITE BLOOD COUNT (AUTO) 8.8 K/uL (4.8-10.8)
[2023-12-14] MEDS ORDERED: LEVOFLOXACIN 750 MG/D5W PREMIX 150 ML IV SCH (06:00)
[2023-12-14 06:11] LABS: ALBUMIN 1.4 g/dL (3.4-5.0); ANION GAP 18.9 (8-16); CALCIUM 7.1 mg/dL (8.5-10.1); MAGNESIUM 1.7 mg/dL (1.8-2.4); POTASSIUM 3.9 mmol/L (3.5-5.1); TOTAL BILIRUBIN 0.3 mg/dL (0.0-1.0); TOTAL PROTEIN, SERUM 5.5 g/dL (6.4-8.2)
[2023-12-14 06:47] LABS: CREATININE 8.7 mg/dL (0.6-1.3)
[2023-12-14] MEDS ORDERED: PANTOPRAZOLE 40 MG TABEC PO SCH (09:00)
[2023-12-14] MEDS: LANSOPRAZOLE 30 MG CAPDR GT SCH (09:00)
[2023-12-14] MEDS: hydrALAZINE 20 MG/ML VIAL IVP PRN (13:31)
[2023-12-14] MEDS: QUEtiapine FUMARATE 100 MG TAB NG SCH (13:32)
[2023-12-14] MEDS: CRUSHER, PILL MC ONE (20:08)
[2023-12-14] MEDS ORDERED: POTASSIUM CHLORIDE 10 MEQ TABER PO PRN (23:05)
[2023-12-14] MEDS: MAG SULF 2000 MG/WATER PREMIX 50 ML IV PRN (23:49)
[2023-12-15] VITALS (28 sets, daily range): BP systolic 82–156; BP diastolic 40–95; PULSE 64–113; RESP 14–26; TEMP 97.2–98.3; O2SAT 91–100
[2023-12-15] MEDS ORDERED: INTUBATION KIT MC ONE (02:14)
[2023-12-15] MEDS: MIDODRINE 5 MG TAB PO SCH (06:20)
[2023-12-15 06:36] LABS: BASOPHILS # (AUTO) 0.1 K/uL (0.00-0.22); BASOPHILS % (AUTO) 0.8 % (0.0-2.0); EOSINOPHILS # (AUTO) 0.6 K/uL (0-0.4); EOSINOPHILS % (AUTO) 6.6 % (0.0-4.0); HEMATOCRIT 26.2 % (36-52); HEMOGLOBIN 8.6 g/dL (12.0-18.0); LYMPHOCYTES # (AUTO) 0.6 K/uL (2.0-11.5); MEAN CORPUSCULAR HEMOGLOBIN 26 pg (27-31); MEAN CORPUSCULAR HGB CONC 33 g/dL (33-37); MEAN CORPUSCULAR VOLUME 80.6 fL (80-94); MONOCYTES # (AUTO) 0.9 K/uL (0.8-1.0); MONOCYTES % (AUTO) 10.8 % (1.7-9.3); NEUTROPHILS # (AUTO) 6.3 K/uL (1.8-7.7); NEUTROPHILS % (AUTO) 74.8 % (42.2-75.2); PLATELET COUNT (AUTO) 272 K/uL (140-450); RED BLOOD CELL COUNT(AUTO) 3.26 MIL/uL (4.20-6.10); WHITE BLOOD COUNT (AUTO) 8.4 K/uL (4.8-10.8)
[2023-12-15 06:46] LABS: ALBUMIN 1.7 g/dL (3.4-5.0); ANION GAP 23.3 (8-16); CARBON DIOXIDE 18.4 mmol/L (21-32); MAGNESIUM 2.7 mg/dL (1.8-2.4); POTASSIUM 4.7 mmol/L (3.5-5.1); TOTAL BILIRUBIN 0.3 mg/dL (0.0-1.0); TOTAL PROTEIN, SERUM 6.5 g/dL (6.4-8.2)
[2023-12-15] MEDS: DEXMEDETOMIDINE HCL 100 MCG/ML 2 ML VIAL IV ONE (06:57)
[2023-12-15 07:01] LABS: CREATININE 11.4 mg/dL (0.6-1.3)
[2023-12-15] MEDS: fentaNYL citrate 1 MG in NACL 0.9% 80 ML IV PRN (10:12)
[2023-12-15 14:26] LABS: BLOOD GAS BASE EXCESS -1.7 mmol/L (-2.0-2.0); BLOOD GAS HCO3 23.2 mmol/L (22-26); BLOOD GAS PH 7.382 (7.35-7.45); BLOOD GAS PO2 87.4 mmHg (75-100)
[2023-12-15 14:27] LABS: BLOOD GAS O2 SAT% 95.8 % (92.0-98.5)
[2023-12-15] MEDS: LORazepam 2 MG/ML VIAL IVP PRN (20:58)
[2023-12-16] VITALS (16 sets, daily range): BP systolic 104–177; BP diastolic 45–90; PULSE 93–107; RESP 16–22; TEMP 97.8–98.7; O2SAT 93–100
[2023-12-16 05:26] LABS: ALBUMIN 2.1 g/dL (3.4-5.0); CALCIUM 9.1 mg/dL (8.5-10.1); CARBON DIOXIDE 22.5 mmol/L (21-32); MAGNESIUM 2.4 mg/dL (1.8-2.4); POTASSIUM 4.5 mmol/L (3.5-5.1); TOTAL BILIRUBIN 0.3 mg/dL (0.0-1.0); TOTAL PROTEIN, SERUM 7.1 g/dL (6.4-8.2)
[2023-12-16 07:43] LABS: BASOPHILS # (AUTO) 0.1 K/uL (0.00-0.22); BASOPHILS % (AUTO) 0.9 % (0.0-2.0); EOSINOPHILS # (AUTO) 0.3 K/uL (0-0.4); EOSINOPHILS % (AUTO) 3.1 % (0.0-4.0); HEMATOCRIT 26.7 % (36-52); HEMOGLOBIN 8.8 g/dL (12.0-18.0); LYMPHOCYTES # (AUTO) 0.9 K/uL (2.0-11.5); LYMPHOCYTES % (AUTO) 9.6 % (20.5-51.1); MEAN CORPUSCULAR HEMOGLOBIN 26 pg (27-31); MEAN CORPUSCULAR HGB CONC 33 g/dL (33-37); MEAN CORPUSCULAR VOLUME 80.1 fL (80-94); MONOCYTES # (AUTO) 1.1 K/uL (0.8-1.0); MONOCYTES % (AUTO) 11.4 % (1.7-9.3); NEUTROPHILS # (AUTO) 7.4 K/uL (1.8-7.7); PLATELET COUNT (AUTO) 350 K/uL (140-450); RED BLOOD CELL COUNT(AUTO) 3.33 MIL/uL (4.20-6.10); WHITE BLOOD COUNT (AUTO) 9.9 K/uL (4.8-10.8)
[2023-12-16] MEDS: QUEtiapine FUMARATE 100 MG TAB PO SCH (09:00)
[2023-12-16] MEDS: KETOROLAC 30 MG/ML VIAL IVP ONE ×2 (23:39→23:53)
[2023-12-17] VITALS (9 sets, daily range): BP systolic 136–189; BP diastolic 69–101; PULSE 60–97; RESP 14–24; TEMP 97.5–98.9; O2SAT 93–100
[2023-12-17 09:22] LABS: ALBUMIN 2.3 g/dL (3.4-5.0); ANION GAP 20.2 (8-16); CALCIUM 9.2 mg/dL (8.5-10.1); CARBON DIOXIDE 24.3 mmol/L (21-32); POTASSIUM 4.5 mmol/L (3.5-5.1); TOTAL BILIRUBIN 0.3 mg/dL (0.0-1.0); TOTAL PROTEIN, SERUM 7.3 g/dL (6.4-8.2)
[2023-12-17 09:24] LABS: CREATININE 12.2 mg/dL (0.6-1.3)
[2023-12-17 09:28] LABS: BASOPHILS # (AUTO) 0.1 K/uL (0.00-0.22); BASOPHILS % (AUTO) 1.3 % (0.0-2.0); EOSINOPHILS # (AUTO) 0.4 K/uL (0-0.4); EOSINOPHILS % (AUTO) 3.7 % (0.0-4.0); HEMATOCRIT 27.7 % (36-52); HEMOGLOBIN 8.9 g/dL (12.0-18.0); LYMPHOCYTES % (AUTO) 9.9 % (20.5-51.1); MEAN CORPUSCULAR HEMOGLOBIN 26 pg (27-31); MEAN CORPUSCULAR HGB CONC 32 g/dL (33-37); MEAN CORPUSCULAR VOLUME 80.3 fL (80-94); MONOCYTES # (AUTO) 0.7 K/uL (0.8-1.0); NEUTROPHILS # (AUTO) 7.7 K/uL (1.8-7.7); NEUTROPHILS % (AUTO) 78.1 % (42.2-75.2); PLATELET COUNT (AUTO) 383 K/uL (140-450); RED BLOOD CELL COUNT(AUTO) 3.45 MIL/uL (4.20-6.10); RED CELL DISTRIBUTION WIDTH 17.5 % (11.6-13.7); WHITE BLOOD COUNT (AUTO) 9.9 K/uL (4.8-10.8)
[2023-12-17] MEDS: QUEtiapine FUMARATE 100 MG TAB PO SCH (11:16)
[2023-12-17] MEDS: NIFEdipine 60 MG TABER PO SCH (11:17)
[2023-12-17] MEDS ORDERED: ALBUTEROL SULFATE/IPRATROPIU 3 ML SOL IH PRN (11:20)
[2023-12-18] VITALS (11 sets, daily range): BP systolic 130–186; BP diastolic 72–106; PULSE 82–113; RESP 18–21; TEMP 97.2–98.4; O2SAT 96–99
[2023-12-18 09:19] LABS: BASOPHILS # (AUTO) 0.1 K/uL (0.00-0.22); EOSINOPHILS # (AUTO) 0.4 K/uL (0-0.4); LYMPHOCYTES # (AUTO) 0.9 K/uL (2.0-11.5)
[2023-12-18 09:27] LABS: BASOPHILS % (AUTO) 1.2 % (0.0-2.0); EOSINOPHILS % (AUTO) 3.5 % (0.0-4.0); HEMATOCRIT 28.7 % (36-52); HEMOGLOBIN 9.3 g/dL (12.0-18.0); MEAN CORPUSCULAR HEMOGLOBIN 26 pg (27-31); MEAN CORPUSCULAR HGB CONC 33 g/dL (33-37); MONOCYTES # (AUTO) 0.8 K/uL (0.8-1.0); MONOCYTES % (AUTO) 6.6 % (1.7-9.3); NEUTROPHILS # (AUTO) 9.6 K/uL (1.8-7.7); NEUTROPHILS % (AUTO) 80.7 % (42.2-75.2); PLATELET COUNT (AUTO) 440 K/uL (140-450); RED BLOOD CELL COUNT(AUTO) 3.59 MIL/uL (4.20-6.10); WHITE BLOOD COUNT (AUTO) 11.8 K/uL (4.8-10.8)
[2023-12-18 09:45] LABS: ALBUMIN 2.3 g/dL (3.4-5.0); ANION GAP 23.9 (8-16); CALCIUM 8.7 mg/dL (8.5-10.1); POTASSIUM 4.9 mmol/L (3.5-5.1); TOTAL BILIRUBIN 0.3 mg/dL (0.0-1.0); TOTAL PROTEIN, SERUM 7.3 g/dL (6.4-8.2)
[2023-12-18 09:48] LABS: CREATININE 13.8 mg/dL (0.6-1.3)
[2023-12-18] MEDS: SEVELAMER CARBONATE 800 MG TAB PO SCH (11:43)
[2023-12-19] VITALS (12 sets, daily range): BP systolic 124–162; BP diastolic 72–86; PULSE 80–113; RESP 18–20; TEMP 97.1–98.5; O2SAT 95–99
[2023-12-19 06:44] LABS: BASOPHILS # (AUTO) 0.1 K/uL (0.00-0.22); BASOPHILS % (AUTO) 0.7 % (0.0-2.0); EOSINOPHILS # (AUTO) 0.3 K/uL (0-0.4); EOSINOPHILS % (AUTO) 2.7 % (0.0-4.0); HEMATOCRIT 28.5 % (36-52); HEMOGLOBIN 9.3 g/dL (12.0-18.0); LYMPHOCYTES % (AUTO) 9.7 % (20.5-51.1); MEAN CORPUSCULAR HEMOGLOBIN 26 pg (27-31); MEAN CORPUSCULAR HGB CONC 33 g/dL (33-37); MONOCYTES # (AUTO) 0.8 K/uL (0.8-1.0); MONOCYTES % (AUTO) 7.4 % (1.7-9.3); NEUTROPHILS # (AUTO) 8.4 K/uL (1.8-7.7); NEUTROPHILS % (AUTO) 79.5 % (42.2-75.2); PLATELET COUNT (AUTO) 472 K/uL (140-450); RED BLOOD CELL COUNT(AUTO) 3.56 MIL/uL (4.20-6.10); RED CELL DISTRIBUTION WIDTH 17.7 % (11.6-13.7); WHITE BLOOD COUNT (AUTO) 10.6 K/uL (4.8-10.8)
[2023-12-19 07:10] LABS: ALBUMIN 2.7 g/dL (3.4-5.0); ANION GAP 20.3 (8-16); CALCIUM 9.1 mg/dL (8.5-10.1); CARBON DIOXIDE 25.3 mmol/L (21-32); POTASSIUM 4.6 mmol/L (3.5-5.1); TOTAL BILIRUBIN 0.3 mg/dL (0.0-1.0); TOTAL PROTEIN, SERUM 7.9 g/dL (6.4-8.2)
[2023-12-19 07:24] LABS: CREATININE 11.2 mg/dL (0.6-1.3)
[2023-12-19] MEDS: atenoloL 25 MG TAB PO SCH (09:42)
[2023-12-19] MEDS: APIXABAN 2.5 MG TAB PO SCH (15:03)
[2023-12-20] VITALS (8 sets, daily range): BP systolic 141–174; BP diastolic 72–96; PULSE 78–86; RESP 18; TEMP 97.2–98.8; O2SAT 96–98
[2023-12-20 06:12] LABS: BASOPHILS % (AUTO) 0.6 % (0.0-2.0); EOSINOPHILS # (AUTO) 0.3 K/uL (0-0.4); EOSINOPHILS % (AUTO) 3.7 % (0.0-4.0); HEMATOCRIT 26.3 % (36-52); HEMOGLOBIN 8.6 g/dL (12.0-18.0); LYMPHOCYTES # (AUTO) 0.8 K/uL (2.0-11.5); LYMPHOCYTES % (AUTO) 10.6 % (20.5-51.1); MEAN CORPUSCULAR HEMOGLOBIN 26 pg (27-31); MEAN CORPUSCULAR HGB CONC 33 g/dL (33-37); MEAN CORPUSCULAR VOLUME 80.4 fL (80-94); MONOCYTES # (AUTO) 0.6 K/uL (0.8-1.0); NEUTROPHILS # (AUTO) 5.7 K/uL (1.8-7.7); NEUTROPHILS % (AUTO) 77.1 % (42.2-75.2); PLATELET COUNT (AUTO) 485 K/uL (140-450); RED BLOOD CELL COUNT(AUTO) 3.28 MIL/uL (4.20-6.10); RED CELL DISTRIBUTION WIDTH 17.4 % (11.6-13.7); WHITE BLOOD COUNT (AUTO) 7.3 K/uL (4.8-10.8)
[2023-12-20 06:45] LABS: ALBUMIN 2.3 g/dL (3.4-5.0); ANION GAP 23.4 (8-16); CALCIUM 8.1 mg/dL (8.5-10.1); CARBON DIOXIDE 21.7 mmol/L (21-32); POTASSIUM 5.1 mmol/L (3.5-5.1); TOTAL BILIRUBIN 0.3 mg/dL (0.0-1.0); TOTAL PROTEIN, SERUM 6.9 g/dL (6.4-8.2)
[2023-12-20 06:50] LABS: CREATININE 12.5 mg/dL (0.6-1.3)
[2023-12-21 04:00] VITALS: BP 144/92; PULSE 86; RESP 18; TEMP 97.5; O2SAT 98
[2023-12-21 05:55] LABS: BASOPHILS # (AUTO) 0.1 K/uL (0.00-0.22); BASOPHILS % (AUTO) 0.7 % (0.0-2.0); EOSINOPHILS # (AUTO) 0.2 K/uL (0-0.4); EOSINOPHILS % (AUTO) 3.4 % (0.0-4.0); HEMATOCRIT 28.1 % (36-52); HEMOGLOBIN 9.1 g/dL (12.0-18.0); LYMPHOCYTES % (AUTO) 13.6 % (20.5-51.1); MEAN CORPUSCULAR HEMOGLOBIN 26 pg (27-31); MEAN CORPUSCULAR HGB CONC 33 g/dL (33-37); MEAN CORPUSCULAR VOLUME 81.2 fL (80-94); MONOCYTES # (AUTO) 0.8 K/uL (0.8-1.0); MONOCYTES % (AUTO) 11.4 % (1.7-9.3); NEUTROPHILS % (AUTO) 70.9 % (42.2-75.2); PLATELET COUNT (AUTO) 515 K/uL (140-450); RED BLOOD CELL COUNT(AUTO) 3.45 MIL/uL (4.20-6.10); RED CELL DISTRIBUTION WIDTH 17.9 % (11.6-13.7)
[2023-12-21 06:30] LABS: ALBUMIN 2.4 g/dL (3.4-5.0); ANION GAP 18.1 (8-16); CALCIUM 8.4 mg/dL (8.5-10.1); CARBON DIOXIDE 25.8 mmol/L (21-32); POTASSIUM 4.9 mmol/L (3.5-5.1); TOTAL BILIRUBIN 0.3 mg/dL (0.0-1.0); TOTAL PROTEIN, SERUM 6.9 g/dL (6.4-8.2)
[2023-12-21 06:32] LABS: CREATININE 10.2 mg/dL (0.6-1.3)
[2023-12-21 07:22] VITALS: PULSE 74; RESP 20; O2SAT 94
[2023-12-21 08:00] VITALS: PULSE 90; RESP 18; TEMP 98.1; O2SAT 98
[2023-12-21] MEDS ORDERED: APIX5TAB PO (10:28)
[2023-12-21] MEDS ORDERED: SEVE800T6 PO (10:28)
[2023-12-21] MEDS ORDERED: APIX2.5 PO (10:28)
[2023-12-21] MEDS ORDERED: QUET100T44 PO (10:28)
[2023-12-21] MEDS ORDERED: NIFE60TA39 PO (10:28)
[2023-12-21] MEDS ORDERED: ATEN25TA2 PO (10:28)
[2023-12-21 10:35] VITALS: BP 138/89; PULSE 98; RESP 20; TEMP 98.6
[2023-12-21 10:55] VITALS: BP 138/89; PULSE 98; RESP 20; TEMP 98.6
== END 2023-12-21 13:47 | disposition home or self-care (01) | DRG 720 ==
LOC: MED 22:27 → MMU 12-05 02:38 → MIC 12-05 08:21 → MTU 12-17 08:01
PROVIDERS: ADMIT Student in an Organized Health Care Education/Training Program; ATTEND Student in an Organized Health Care Education/Training Program
PROC: 5A09357 Assistance with Respiratory Ventilation, Less than 24 Consecutive Hours, Continuous Positive Airway Pressure (ICD-10-PCS; 2023-12-04)
PROC: 5A1955Z Respiratory Ventilation, Greater than 96 Consecutive Hours (ICD-10-PCS; principal; 2023-12-05)
PROC: 0BH17EZ Insertion of Endotracheal Airway into Trachea, Via Natural or Artificial Opening (ICD-10-PCS; 2023-12-05)
PROC: 06HY33Z Insertion of Infusion Device into Lower Vein, Percutaneous Approach (ICD-10-PCS; 2023-12-05)
PROC: B54BZZA Ultrasonography of Right Lower Extremity Veins, Guidance (ICD-10-PCS; 2023-12-05)
PROC: 5A1D70Z Performance of Urinary Filtration, Intermittent, Less than 6 Hours Per Day (ICD-10-PCS; 2023-12-05)
PROC: 5A09357 Assistance with Respiratory Ventilation, Less than 24 Consecutive Hours, Continuous Positive Airway Pressure (ICD-10-PCS; 2023-12-05)
PROC: 5A1D70Z Performance of Urinary Filtration, Intermittent, Less than 6 Hours Per Day (ICD-10-PCS; 2023-12-06)
PROC: 5A1D70Z Performance of Urinary Filtration, Intermittent, Less than 6 Hours Per Day (ICD-10-PCS; 2023-12-07)
PROC: 5A1D70Z Performance of Urinary Filtration, Intermittent, Less than 6 Hours Per Day (ICD-10-PCS; 2023-12-09)
PROC: 5A1D70Z Performance of Urinary Filtration, Intermittent, Less than 6 Hours Per Day (ICD-10-PCS; 2023-12-11)
PROC: 5A1D70Z Performance of Urinary Filtration, Intermittent, Less than 6 Hours Per Day (ICD-10-PCS; 2023-12-13)
PROC: 5A1D70Z Performance of Urinary Filtration, Intermittent, Less than 6 Hours Per Day (ICD-10-PCS; 2023-12-15)
PROC: 5A1D70Z Performance of Urinary Filtration, Intermittent, Less than 6 Hours Per Day (ICD-10-PCS; 2023-12-18)
PROC: 5A1D70Z Performance of Urinary Filtration, Intermittent, Less than 6 Hours Per Day (ICD-10-PCS; 2023-12-20)
PROC: B54MZZA Ultrasonography of Right Upper Extremity Veins, Guidance (ICD-10-PCS; 2023-12-20)
PROC: 05H933Z Insertion of Infusion Device into Right Brachial Vein, Percutaneous Approach (ICD-10-PCS; 2023-12-20)
DX: A41.9 Sepsis, unspecified organism (principal); J96.01 Acute respiratory failure with hypoxia; R65.21 Severe sepsis with septic shock; I50.33 Acute on chronic diastolic (congestive) heart failure; J10.00 Influenza due to other identified influenza virus with unspecified type of pneumonia; E11.649 Type 2 diabetes mellitus with hypoglycemia without coma; E44.1 Mild protein-calorie malnutrition; D63.1 Anemia in chronic kidney disease; D69.6 Thrombocytopenia, unspecified; I82.A12 Acute embolism and thrombosis of left axillary vein; N18.6 End stage renal disease; I13.2 Hypertensive heart and chronic kidney disease with heart failure and with stage 5 chronic kidney disease, or end stage renal disease; I82.C12 Acute embolism and thrombosis of left internal jugular vein; E87.5 Hyperkalemia; I16.1 Hypertensive emergency; S91.302A Unspecified open wound, left foot, initial encounter; X58.XXXA Exposure to other specified factors, initial encounter; I82.B12 Acute embolism and thrombosis of left subclavian vein; E11.22 Type 2 diabetes mellitus with diabetic chronic kidney disease; Z20.822 Contact with and (suspected) exposure to COVID-19; R31.0 Gross hematuria; Z89.511 Acquired absence of right leg below knee; Z99.2 Dependence on renal dialysis; Z91.158 Patient's noncompliance with renal dialysis for other reason; Z79.4 Long term (current) use of insulin; Z91.148 Patient's other noncompliance with medication regimen for other reason; Y93.89 Activity, other specified; Y92.89 Other specified places as the place of occurrence of the external cause; Y99.8 Other external cause status; Z68.30 Body mass index [BMI] 30.0-30.9, adult; Z91.199 Patient's noncompliance with other medical treatment and regimen due to unspecified reason
CPT/HCPCS: 31500; 36415; 36556; 36600; 71045; 73521; 80048; 80053; 81001; 82803; 82948; 83605; 83735; 83880; 84100; 84484; 85025; 87070; 87075; 87081; 87186; 87205; 87426; 87804; 92526; 93971; 94003; 94660; 94760; 94761; 96374; 96375; 97163; 97530; 99291; J0360; J0610; J0696; J0744; J1644; J1815; J1885; J1940; J2060; J2250; J2704; J2997; J3010; J3475; J3490; J7060; Q0092; Q5106; 90935

== ENCOUNTER 2023-12-27 23:01 | Emergency (ER) | payer MEDICAID ==
[~2023-12-27] VITALS: Ht 182.9 cm; Wt 108.9 kg
[~2023-12-27 23:01] MED LIST changes: +APIX2.5 PO; +APIX5TAB PO; +ATEN25TA2 PO; -HYDR-1102 PO; +NIFE60TA39 PO; -NIFE60TE5 PO; +QUET100T44 PO
[2023-12-27 23:09] VITALS: BP 120/83; PULSE 98; RESP 22; TEMP 98; O2SAT 95
[2023-12-28] MEDS: MORPHINE SULFATE 4 MG/ML SYR IM ONE (00:29)
[2023-12-28 05:10] VITALS: BP 120/83; PULSE 93; RESP 22; TEMP 98; O2SAT 96
== END 2023-12-28 05:10 | disposition home or self-care (01) ==
LOC: MED 23:01
DX: M79.662 Pain in left lower leg (principal); K62.89 Other specified diseases of anus and rectum; F15.10 Other stimulant abuse, uncomplicated; I13.2 Hypertensive heart and chronic kidney disease with heart failure and with stage 5 chronic kidney disease, or end stage renal disease; E11.22 Type 2 diabetes mellitus with diabetic chronic kidney disease; N18.6 End stage renal disease; Z99.2 Dependence on renal dialysis; Z79.4 Long term (current) use of insulin; Z79.899 Other long term (current) drug therapy
CPT/HCPCS: 96372; 99283; J2270

== ENCOUNTER 2024-01-01 15:26 | Inpatient (IN) | payer MEDICAID ==
[~2024-01-01] VITALS: Ht 175.3 cm; Wt 94.8 kg
[2024-01-01 15:28] VITALS: BP 165/95; PULSE 90; RESP 17; TEMP 98.7; O2SAT 96
[2024-01-01] MEDS ORDERED: CALCIUM GLUC 1 GM/50 mL NS BAG 0 ML IV ONE (16:09)
[2024-01-01] MEDS ORDERED: MAG SULF 2000 MG/WATER PREMIX 50 ML IV ONE (16:14)
[2024-01-01] MEDS: CALCIUM CHLORIDE 10% 100 MG/ML SYR IVP ONE (16:17)
[2024-01-01] MEDS: DEXTROSE 50% 50 ML SYR IVP ONE (16:29)
[2024-01-01 16:31] LABS: BASOPHILS # (AUTO) 0.1 K/uL (0.00-0.22); EOSINOPHILS % (AUTO) 0.2 % (0.0-4.0); HEMATOCRIT 22.3 % (36-52); HEMOGLOBIN 7.4 g/dL (12.0-18.0); LYMPHOCYTES # (AUTO) 0.3 K/uL (2.0-11.5); LYMPHOCYTES % (AUTO) 7.6 % (20.5-51.1); MEAN CORPUSCULAR HEMOGLOBIN 27 pg (27-31); MEAN CORPUSCULAR HGB CONC 33 g/dL (33-37); MEAN CORPUSCULAR VOLUME 81.2 fL (80-94); MONOCYTES # (AUTO) 0.5 K/uL (0.8-1.0); MONOCYTES % (AUTO) 11.4 % (1.7-9.3); NEUTROPHILS # (AUTO) 3.4 K/uL (1.8-7.7); NEUTROPHILS % (AUTO) 77.8 % (42.2-75.2); PLATELET COUNT (AUTO) 158 K/uL (140-450); RED BLOOD CELL COUNT(AUTO) 2.74 MIL/uL (4.20-6.10); RED CELL DISTRIBUTION WIDTH 18.3 % (11.6-13.7); WHITE BLOOD COUNT (AUTO) 4.4 K/uL (4.8-10.8)
[2024-01-01] MEDS: ALBUTEROL 0.083% 2.5 MG/3 ML NEBU INH ONE (16:39)
[2024-01-01] MEDS: MAG SULF 2000 MG/WATER PREMIX 50 ML IV ONE (16:43)
[2024-01-01 16:44] VITALS: PULSE 77; RESP 24; O2SAT 96
[2024-01-01 16:45] LABS: PARTIAL THROMBOPLASTIN TIME 26.3 secs (22-35.6); PROTHROMBIN TIME 10.5 secs (10.8-13.4)
[2024-01-01 16:51] LABS: ALANINE AMINOTRANSFERASE 12 U/L (12-78); ALBUMIN 2.9 g/dL (3.4-5.0); ALKALINE PHOSPHATASE 77 U/L (50-136); ASPARTATE AMINOTRANSFERASE 25 U/L (15-37); BILIRUBIN,DIRECT 0.1 mg/dL (0.0-0.3); TOTAL BILIRUBIN 0.3 mg/dL (0.0-1.0); TOTAL PROTEIN, SERUM 7.3 g/dL (6.4-8.2)
[2024-01-01 16:56] LABS: CALCIUM 8.1 mg/dL (8.5-10.1); CARBON DIOXIDE 16.5 mmol/L (21-32)
[2024-01-01 17:02] LABS: POTASSIUM 8.5 mmol/L (3.5-5.1)
[2024-01-01] MEDS: INSULIN REGULAR, HUMAN 100 UNIT/ML VIAL IV ONE (17:10)
[2024-01-01 17:21] LABS: MAGNESIUM 2.6 mg/dL (1.8-2.4)
[2024-01-01 17:37] LABS: PHOSPHORUS 19.5 mg/dL (2.5-4.9)
[2024-01-01 18:00] LABS: APPEARANCE,URINE SL CLOUDY (CLEAR); BILIRUBIN,URINE NEGATIVE (NEGATIVE); BLOOD, URINE 3+ (NEGATIVE); COLOR,URINE OTHER (YELLOW); LEUKOCYTE ESTERASE ,URINE NEGATIVE (NEGATIVE); NITRITE, URINE NEGATIVE (NEGATIVE); PH,URINE 7.5 (5.0-9.0); PROTEIN,URINE 2+ (NEGATIVE); UGLUCOSE NEGATIVE (NEGATIVE); UROBILINOGEN,URINE 0.2 EU/dL (0.2 - 1)
[2024-01-01 18:17] LABS: BACTERIA,URINE 10-30 (MOD) /HPF (None Seen); SQUAMOUS EPITHELIAL CELL,UR 0-3 (FEW) /LPF (0-3 (FEW)); WBC,URINE 0-5 /HPF (0-5)
[2024-01-01] MEDS: LORazepam 2 MG/ML VIAL IVP ONE (19:16)
[2024-01-01] MEDS ORDERED: ALTEPLASE 100 MG VIAL IV ONE ×2 (19:55→20:00)
[2024-01-01] MEDS ORDERED: ALTEPLASE 2 MG VIAL MC ONE (20:45)
[2024-01-01] MEDS ORDERED: ONDANSETRON 4 MG/2 ML VIAL IVP PRN (21:30)
[2024-01-01] MEDS ORDERED: HYDROcodone/APAP 5/325 MG 1 TAB TAB PO PRN (21:30)
[2024-01-01] MEDS ORDERED: LORazepam 2 MG/ML VIAL IVP PRN (21:30)
[2024-01-01] MEDS: ALTEPLASE 2 MG VIAL MC PRN (21:33)
[2024-01-01 22:34] VITALS: PULSE 83; RESP 19; O2SAT 99
[2024-01-01] MEDS: ALBUTEROL 0.083% 2.5 MG/3 ML NEBU INH SCH (22:34)
[2024-01-01 22:36] VITALS: PULSE 86
[2024-01-01 23:00] VITALS: PULSE 84; RESP 19; O2SAT 97
[2024-01-02] VITALS (10 sets, daily range): BP systolic 136–169; BP diastolic 90–109; PULSE 83–107; RESP 18–22; TEMP 97.5–99.2; O2SAT 96–100
[2024-01-02 01:12] LABS: ANION GAP 28.9 (8-16); CALCIUM 7.7 mg/dL (8.5-10.1); CARBON DIOXIDE 19.3 mmol/L (21-32)
[2024-01-02 01:23] LABS: POTASSIUM 6.2 mmol/L (3.5-5.1)
[2024-01-02 01:24] LABS: CREATININE 16.5 mg/dL (0.6-1.3)
[2024-01-02] MEDS: SODIUM POLYSTYRENE 15 GM/60 ML UDBTL PO ONE ×2 (02:20→05:15)
[2024-01-02 03:38] LABS: BASOPHILS % (AUTO) 0.7 % (0.0-2.0); EOSINOPHILS % (AUTO) 0.2 % (0.0-4.0); HEMOGLOBIN 8.5 g/dL (12.0-18.0); LYMPHOCYTES # (AUTO) 0.6 K/uL (2.0-11.5); LYMPHOCYTES % (AUTO) 12.9 % (20.5-51.1); MEAN CORPUSCULAR HEMOGLOBIN 26 pg (27-31); MEAN CORPUSCULAR HGB CONC 33 g/dL (33-37); MEAN CORPUSCULAR VOLUME 81.1 fL (80-94); MONOCYTES # (AUTO) 0.5 K/uL (0.8-1.0); MONOCYTES % (AUTO) 10.2 % (1.7-9.3); NEUTROPHILS # (AUTO) 3.4 K/uL (1.8-7.7); PLATELET COUNT (AUTO) 147 K/uL (140-450); RED BLOOD CELL COUNT(AUTO) 3.21 MIL/uL (4.20-6.10); RED CELL DISTRIBUTION WIDTH 18.2 % (11.6-13.7); WHITE BLOOD COUNT (AUTO) 4.5 K/uL (4.8-10.8)
[2024-01-02 04:15] LABS: ANION GAP 28.8 (8-16); CALCIUM 7.7 mg/dL (8.5-10.1); CARBON DIOXIDE 20.2 mmol/L (21-32)
[2024-01-02 04:18] LABS: CREATININE 16.7 mg/dL (0.6-1.3)
[2024-01-02 04:27] LABS: CHOL/HDL RATIO 2.2 (1-4.5)
[2024-01-02] MEDS: IPRATROPIUM 0.02% 0.5 MG/2.5 ML NEBU INH SCH (07:00)
[2024-01-02] MEDS: ASPIRIN 81 MG TAB.CHEW PO SCH (09:00)
[2024-01-02] MEDS: ATORVASTATIN 20 MG TAB PO SCH (09:00)
[2024-01-02] MEDS: CALCIUM ACETATE 667 MG TAB PO SCH (11:22)
[2024-01-02] MEDS: NIFEdipine 60 MG TABER PO STA (18:10)
[2024-01-03] VITALS (13 sets, daily range): BP systolic 127–189; BP diastolic 68–98; PULSE 81–106; RESP 18–22; TEMP 97.2–99.7; O2SAT 92–100
[2024-01-03] MEDS: hydrALAZINE 20 MG/ML VIAL IVP PRN (05:16)
[2024-01-03] MEDS: BLOOD GLUCOSE MONITORING 1 DEV DEV FS SCH (06:40)
[2024-01-03 06:58] LABS: AMPHETAMINE, URINE POSITIVE ng/ml (NEG <=1000); BARBITURATE, URINE NEGATIVE ng/ml (NEG <=200); BENZODIAZEPINE, URINE NEGATIVE ng/mL (NEG <=200); CANNABINOID, URINE NEGATIVE ng/mL (NEG <=50); COCAINE, URINE NEGATIVE ng/mL (NEG <=300); OPIATE, URINE POSITIVE ng/mL (NEG <=2000); PHENCYCLIDINE SCREEN,URINE NEGATIVE ng/mL (NEG <=25)
[2024-01-03 07:58] LABS: ANION GAP 24.3 (8-16); CALCIUM 7.5 mg/dL (8.5-10.1); CARBON DIOXIDE 23.3 mmol/L (21-32); POTASSIUM 4.6 mmol/L (3.5-5.1)
[2024-01-03 08:32] LABS: CREATININE 12.8 mg/dL (0.6-1.3)
[2024-01-03] MEDS: atenoloL 25 MG TAB PO SCH (08:51)
[2024-01-03] MEDS: NIFEdipine 60 MG TABER PO SCH (08:52)
[2024-01-03] MEDS ORDERED: VANCOMYCIN PER PHARMACY MC PRN (11:20)
[2024-01-03] MEDS: EPOETIN ALFA-EPBX 10,000 UNITS/ML VIAL IV SCH (11:42)
[2024-01-03] MEDS ORDERED: NON ADHERENT DRESSING TP PRN (12:55)
[2024-01-03] MEDS ORDERED: Z-GUARD PASTE TP PRN (12:55)
[2024-01-03] MEDS ORDERED: FOAM DRESSING TP PRN (12:55)
[2024-01-03] MEDS: Z-GUARD PASTE TP SCH (13:00)
[2024-01-03] MEDS: NON ADHERENT DRESSING TP SCH (13:00)
[2024-01-03] MEDS: FOAM DRESSING TP SCH (13:00)
[2024-01-03 16:03] LABS: HEMATOCRIT 26.2 % (36-52); HEMOGLOBIN 8.6 g/dL (12.0-18.0); LYMPHOCYTES # (AUTO) 0.6 K/uL (2.0-11.5); LYMPHOCYTES % (AUTO) 12.7 % (20.5-51.1); MEAN CORPUSCULAR HEMOGLOBIN 27 pg (27-31); MEAN CORPUSCULAR HGB CONC 33 g/dL (33-37); MEAN CORPUSCULAR VOLUME 80.7 fL (80-94); MONOCYTES # (AUTO) 0.6 K/uL (0.8-1.0); MONOCYTES % (AUTO) 12.3 % (1.7-9.3); NEUTROPHILS # (AUTO) 3.5 K/uL (1.8-7.7); PLATELET COUNT (AUTO) 144 K/uL (140-450); RED BLOOD CELL COUNT(AUTO) 3.25 MIL/uL (4.20-6.10); RED CELL DISTRIBUTION WIDTH 17.6 % (11.6-13.7); WHITE BLOOD COUNT (AUTO) 4.8 K/uL (4.8-10.8)
[2024-01-03] MEDS: VANCOMYCIN 1,000 MG in DEXTROSE 5% 250 ML IV SCH (16:31)
[2024-01-04] VITALS (16 sets, daily range): BP systolic 125–182; BP diastolic 65–96; PULSE 75–101; RESP 18–22; TEMP 97.1–98.6; O2SAT 93–100
[2024-01-04 07:19] LABS: BASOPHILS % (AUTO) 0.9 % (0.0-2.0); EOSINOPHILS % (AUTO) 0.9 % (0.0-4.0); HEMATOCRIT 25.9 % (36-52); HEMOGLOBIN 8.4 g/dL (12.0-18.0); LYMPHOCYTES # (AUTO) 0.7 K/uL (2.0-11.5); LYMPHOCYTES % (AUTO) 13.8 % (20.5-51.1); MEAN CORPUSCULAR HEMOGLOBIN 26 pg (27-31); MEAN CORPUSCULAR HGB CONC 33 g/dL (33-37); MONOCYTES # (AUTO) 0.5 K/uL (0.8-1.0); MONOCYTES % (AUTO) 8.7 % (1.7-9.3); NEUTROPHILS # (AUTO) 3.9 K/uL (1.8-7.7); NEUTROPHILS % (AUTO) 75.7 % (42.2-75.2); PLATELET COUNT (AUTO) 144 K/uL (140-450); RED CELL DISTRIBUTION WIDTH 17.2 % (11.6-13.7); WHITE BLOOD COUNT (AUTO) 5.2 K/uL (4.8-10.8)
[2024-01-04 07:39] LABS: ANION GAP 22.4 (8-16); CALCIUM 7.5 mg/dL (8.5-10.1); CARBON DIOXIDE 24.6 mmol/L (21-32)
[2024-01-04 07:43] LABS: CREATININE 13.9 mg/dL (0.6-1.3)
[2024-01-04] MEDS: atenoloL 25 MG TAB PO SCH (08:47)
[2024-01-04] MEDS ORDERED: LIDOCAINE MPF 1% 5 ML ONE ×2 (14:45)
[2024-01-04] MEDS: MORPHINE SULFATE 4 MG/ML SYR IVP STA (17:53)
[2024-01-05] VITALS (13 sets, daily range): BP systolic 124–167; BP diastolic 65–91; PULSE 73–97; RESP 18–20; TEMP 97.5–98.7; O2SAT 92–99
[2024-01-05] MEDS: HYDROcodone/APAP 5/325 MG 1 TAB TAB PO PRN (02:19)
[2024-01-05 06:36] LABS: BASOPHILS % (AUTO) 0.5 % (0.0-2.0); EOSINOPHILS # (AUTO) 0.1 K/uL (0-0.4); EOSINOPHILS % (AUTO) 1.9 % (0.0-4.0); HEMATOCRIT 26.3 % (36-52); HEMOGLOBIN 8.5 g/dL (12.0-18.0); LYMPHOCYTES # (AUTO) 0.8 K/uL (2.0-11.5); LYMPHOCYTES % (AUTO) 19.1 % (20.5-51.1); MEAN CORPUSCULAR HEMOGLOBIN 26 pg (27-31); MEAN CORPUSCULAR HGB CONC 32 g/dL (33-37); MEAN CORPUSCULAR VOLUME 81.7 fL (80-94); MONOCYTES # (AUTO) 0.6 K/uL (0.8-1.0); MONOCYTES % (AUTO) 13.9 % (1.7-9.3); NEUTROPHILS # (AUTO) 2.8 K/uL (1.8-7.7); NEUTROPHILS % (AUTO) 64.6 % (42.2-75.2); PLATELET COUNT (AUTO) 129 K/uL (140-450); RED BLOOD CELL COUNT(AUTO) 3.22 MIL/uL (4.20-6.10); RED CELL DISTRIBUTION WIDTH 17.2 % (11.6-13.7); WHITE BLOOD COUNT (AUTO) 4.3 K/uL (4.8-10.8)
[2024-01-05 07:10] LABS: ANION GAP 19.6 (8-16); CARBON DIOXIDE 26.8 mmol/L (21-32); POTASSIUM 4.4 mmol/L (3.5-5.1)
[2024-01-05 07:21] LABS: CREATININE 10.3 mg/dL (0.6-1.3)
[2024-01-05] MEDS: MUPIROCIN CA NASAL 2% 1GM TUBE NS SCH (08:38)
[2024-01-05] MEDS: CHLORHEXADINE GLUC 2% CLOTH TP SCH (08:39)
[2024-01-05] MEDS: VANCOMYCIN 1,000 MG in DEXTROSE 5% 250 ML IV SCH (09:36)
[2024-01-05] MEDS ORDERED: RENAL DOSING PER PHARMACY MC PRN (11:15)
[2024-01-06] VITALS (7 sets, daily range): BP systolic 132–144; BP diastolic 71–79; PULSE 71–85; RESP 18–20; TEMP 97.1–98.1; O2SAT 94–99
[2024-01-06] MEDS: IPRATROPIUM 0.02% 0.5 MG/2.5 ML NEBU INH SCH (01:03)
[2024-01-06] MEDS: ALBUTEROL 0.083% 2.5 MG/3 ML NEBU INH SCH (01:04)
[2024-01-06 14:30] LABS: ALBUMIN 2.8 g/dL (3.4-5.0); ANION GAP 16.3 (8-16); CALCIUM 8.1 mg/dL (8.5-10.1); CARBON DIOXIDE 28.5 mmol/L (21-32); POTASSIUM 4.8 mmol/L (3.5-5.1); TOTAL BILIRUBIN 0.2 mg/dL (0.0-1.0); TOTAL PROTEIN, SERUM 7.5 g/dL (6.4-8.2)
[2024-01-07] VITALS (9 sets, daily range): BP systolic 142–167; BP diastolic 58–96; PULSE 61–78; RESP 16–20; TEMP 97.5–98.3; O2SAT 96–100
[2024-01-07] MEDS: ACETAMINOPHEN 325 MG TAB PO PRN (00:16)
[2024-01-07 07:30] LABS: BASOPHILS # (AUTO) 0.1 K/uL (0.00-0.22); BASOPHILS % (AUTO) 1.1 % (0.0-2.0); EOSINOPHILS # (AUTO) 0.2 K/uL (0-0.4); EOSINOPHILS % (AUTO) 3.7 % (0.0-4.0); HEMATOCRIT 25.2 % (36-52); HEMOGLOBIN 8.2 g/dL (12.0-18.0); LYMPHOCYTES % (AUTO) 18.6 % (20.5-51.1); MEAN CORPUSCULAR HEMOGLOBIN 26 pg (27-31); MEAN CORPUSCULAR HGB CONC 32 g/dL (33-37); MEAN CORPUSCULAR VOLUME 81.6 fL (80-94); MONOCYTES # (AUTO) 0.6 K/uL (0.8-1.0); MONOCYTES % (AUTO) 11.6 % (1.7-9.3); NEUTROPHILS # (AUTO) 3.4 K/uL (1.8-7.7); PLATELET COUNT (AUTO) 154 K/uL (140-450); RED BLOOD CELL COUNT(AUTO) 3.09 MIL/uL (4.20-6.10); RED CELL DISTRIBUTION WIDTH 17.3 % (11.6-13.7); WHITE BLOOD COUNT (AUTO) 5.3 K/uL (4.8-10.8)
[2024-01-07 08:03] LABS: ANION GAP 19.9 (8-16); CALCIUM 8.1 mg/dL (8.5-10.1); CARBON DIOXIDE 25.5 mmol/L (21-32); POTASSIUM 5.4 mmol/L (3.5-5.1)
[2024-01-07 08:05] LABS: CREATININE 11.1 mg/dL (0.6-1.3)
[2024-01-07] MEDS: INSULIN LISPRO SLIDING SCALE 100 UNITS/ML VIAL SUBQ PRN (11:55)
[2024-01-07] MEDS: SODIUM ZIRCONIUM CYCLOSILICATE 10 GM POWD.PACK PO SCH ×2 (13:31→14:30)
[2024-01-08] VITALS (14 sets, daily range): BP systolic 118–161; BP diastolic 51–83; PULSE 65–75; RESP 18–22; TEMP 97.4–98.8; O2SAT 89–100
[2024-01-08] MEDS: DEXTROSE 50% 50 ML SYR IVP PRN (06:43)
[2024-01-08 07:40] LABS: BASOPHILS % (AUTO) 0.4 % (0.0-2.0); EOSINOPHILS # (AUTO) 0.3 K/uL (0-0.4); EOSINOPHILS % (AUTO) 5.7 % (0.0-4.0); HEMATOCRIT 24.5 % (36-52); HEMOGLOBIN 7.9 g/dL (12.0-18.0); LYMPHOCYTES # (AUTO) 0.9 K/uL (2.0-11.5); LYMPHOCYTES % (AUTO) 19.4 % (20.5-51.1); MEAN CORPUSCULAR HEMOGLOBIN 27 pg (27-31); MEAN CORPUSCULAR HGB CONC 32 g/dL (33-37); MEAN CORPUSCULAR VOLUME 82.2 fL (80-94); MONOCYTES # (AUTO) 0.5 K/uL (0.8-1.0); MONOCYTES % (AUTO) 10.1 % (1.7-9.3); NEUTROPHILS # (AUTO) 2.9 K/uL (1.8-7.7); NEUTROPHILS % (AUTO) 64.4 % (42.2-75.2); PLATELET COUNT (AUTO) 178 K/uL (140-450); RED BLOOD CELL COUNT(AUTO) 2.98 MIL/uL (4.20-6.10); WHITE BLOOD COUNT (AUTO) 4.5 K/uL (4.8-10.8)
[2024-01-08 07:47] LABS: CALCIUM 7.9 mg/dL (8.5-10.1)
[2024-01-08 07:49] LABS: CREATININE 12.5 mg/dL (0.6-1.3)
[2024-01-08] MEDS: VANCOMYCIN 1,000 MG in DEXTROSE 5% 250 ML IV SCH (10:55)
[2024-01-08] MEDS: PIPERACILLIN/TAZOBACTAM 2.25 GM in DEXTROSE 5% 50 ML IV SCH (12:42)
[2024-01-08] MEDS: fentaNYL citrate 0.05 MG/ML VIAL ONE (17:49)
[2024-01-08] MEDS: MIDAZOLAM 2 MG/2 ML VIAL ONE (17:49)
[2024-01-08] MEDS: PROPOFOL 200 MG/20 ML VIAL IV ONE ×2 (17:53→18:22)
[2024-01-08] MEDS: BUPIVACAINE-MPF 0.25% 30 ML VIAL INJ ONE (18:16)
[2024-01-08] MEDS: ePHEDrine 50 MG/ML VIAL ONE (18:27)
[2024-01-08] MEDS: PHENYLEPHRINE 10 MG/ML VIAL ONE (18:45)
[2024-01-09] VITALS (11 sets, daily range): BP systolic 117–143; BP diastolic 59–75; PULSE 65–98; RESP 17–20; TEMP 97.3–98.4; O2SAT 95–100
[2024-01-09] MEDS ORDERED: HYDROmorphone 1 MG/ML AMP IVP PRN (13:55)
[2024-01-09] MEDS: ALBUTEROL 0.083% 2.5 MG/3 ML NEBU INH PRN (17:34)
[2024-01-09] MEDS: IPRATROPIUM 0.02% 0.5 MG/2.5 ML NEBU INH PRN (17:50)
[2024-01-09] MEDS: oxyCODONE/APAP 5/325 MG 1 TAB TAB PO PRN (19:55)
[2024-01-09] MEDS ORDERED: RENAL DOSING PER PHARMACY MC (22:48)
[2024-01-09] MEDS ORDERED: GLUC-805 FS (22:48)
[2024-01-09] MEDS ORDERED: PRON INH (22:48)
[2024-01-09] MEDS ORDERED: D50SYR IVP (22:48)
[2024-01-09] MEDS ORDERED: ATOR20TA40 PO (22:48)
[2024-01-09] MEDS ORDERED: ASPI81CT95 PO (22:48)
[2024-01-09] MEDS ORDERED: ATEN25TA2 PO (22:48)
[2024-01-09] MEDS ORDERED: ACET-1182 PO (22:48)
[2024-01-09] MEDS ORDERED: NIFE60TA39 PO (22:48)
[2024-01-09] MEDS ORDERED: CALC667C3 PO (22:48)
[2024-01-09] MEDS ORDERED: ONDA2SOL45 IVP (22:48)
[2024-01-09] MEDS ORDERED: [UNRECOGNIZED DRUG - REMARK] TP (22:48)
[2024-01-09] MEDS ORDERED: OXYC-304 PO (22:48)
[2024-01-09] MEDS ORDERED: PIPE50SO5 IV (22:48)
[2024-01-09] MEDS ORDERED: VANC1VIA34 MC (22:48)
[2024-01-10 00:07] VITALS: O2SAT 92
[2024-01-10] MEDS ORDERED: [UNRECOGNIZED DRUG - CODE] IV (00:37)
[2024-01-10] MEDS ORDERED: Foam Dressing TP (00:37)
[2024-01-10] MEDS ORDERED: ZGUARD TP (00:37)
== END 2024-01-10 02:15 | disposition short-term general hospital (02) | DRG 721 ==
LOC: MED 15:26 → MTU 21:37
PROVIDERS: ADMIT Family Medicine; ATTEND Family Medicine
PROC: 5A1D70Z Performance of Urinary Filtration, Intermittent, Less than 6 Hours Per Day (ICD-10-PCS; 2024-01-01)
PROC: 5A1D70Z Performance of Urinary Filtration, Intermittent, Less than 6 Hours Per Day (ICD-10-PCS; 2024-01-02)
PROC: 05JY3ZZ Inspection of Upper Vein, Percutaneous Approach (ICD-10-PCS; principal; 2024-01-04)
PROC: 5A1D70Z Performance of Urinary Filtration, Intermittent, Less than 6 Hours Per Day (ICD-10-PCS; 2024-01-04)
PROC: 5A1D70Z Performance of Urinary Filtration, Intermittent, Less than 6 Hours Per Day (ICD-10-PCS; 2024-01-05)
PROC: 5A1D70Z Performance of Urinary Filtration, Intermittent, Less than 6 Hours Per Day (ICD-10-PCS; 2024-01-08)
PROC: 05JY3ZZ Inspection of Upper Vein, Percutaneous Approach (ICD-10-PCS; 2024-01-08)
PROC: 5A1D70Z Performance of Urinary Filtration, Intermittent, Less than 6 Hours Per Day (ICD-10-PCS; 2024-01-10)
DX: T80.211A Bloodstream infection due to central venous catheter, initial encounter (principal); J96.01 Acute respiratory failure with hypoxia; G93.41 Metabolic encephalopathy; I50.33 Acute on chronic diastolic (congestive) heart failure; A41.9 Sepsis, unspecified organism; N18.6 End stage renal disease; D69.6 Thrombocytopenia, unspecified; D63.8 Anemia in other chronic diseases classified elsewhere; I13.2 Hypertensive heart and chronic kidney disease with heart failure and with stage 5 chronic kidney disease, or end stage renal disease; E11.22 Type 2 diabetes mellitus with diabetic chronic kidney disease; E11.51 Type 2 diabetes mellitus with diabetic peripheral angiopathy without gangrene; E87.5 Hyperkalemia; K40.90 Unilateral inguinal hernia, without obstruction or gangrene, not specified as recurrent; H70.90 Unspecified mastoiditis, unspecified ear; Y83.8 Other surgical procedures as the cause of abnormal reaction of the patient, or of later complication, without mention of misadventure at the time of the procedure; Z20.822 Contact with and (suspected) exposure to COVID-19; E21.1 Secondary hyperparathyroidism, not elsewhere classified; Y92.89 Other specified places as the place of occurrence of the external cause; Z99.2 Dependence on renal dialysis; Z91.158 Patient's noncompliance with renal dialysis for other reason; Z59.01 Sheltered homelessness; Z89.512 Acquired absence of left leg below knee; Z89.511 Acquired absence of right leg below knee
CPT/HCPCS: 36415; 70450; 71045; 80048; 80053; 80076; 80202; 80305; 81001; 82948; 83605; 83735; 83880; 84100; 84132; 84484; 85025; 85610; 85730; 86886; 86900; 86901; 87040; 87081; 87086; 87186; 90935; 92526; 93005; 94640; 96374; 96375; 97110; 97112; 97163-GP; 97530; 99291; J0360; J0610; J1644; J1815; J2001; J2060; J2250; J2270; J2370; J2543; J2704; J2997; J3010; J3370; J3475; J3490; J7060; J7613; J7644; Q0163; Q5106

== ENCOUNTER 2024-01-14 10:44 | Emergency (ER) | payer MEDICAID ==
[~2024-01-14] VITALS: Ht 188 cm; Wt 104.3 kg
[~2024-01-14 10:44] MED LIST changes: +ACET-1182 PO; +CALC667C3 PO; +D50SYR IVP; +Foam Dressing TP; +GLUC-805 FS; +HYDR-1102 PO; +NIFE60TE5 PO; +ONDA2SOL45 IVP; +OXYC-304 PO; +PIPE50SO5 IV; +PRON INH; +RENAL DOSING PER PHARMACY MC; +VANC1VIA34 MC; +ZGUARD TP; +[UNRECOGNIZED DRUG - CODE] IV; +[UNRECOGNIZED DRUG - REMARK] TP
[2024-01-14 10:47] VITALS: BP 136/66; PULSE 76; RESP 20; TEMP 97.8; O2SAT 99
[2024-01-14 11:48] LABS: BASOPHILS # (AUTO) 0.1 K/uL (0.00-0.22); EOSINOPHILS # (AUTO) 0.3 K/uL (0-0.4); EOSINOPHILS % (AUTO) 4.5 % (0.0-4.0); HEMATOCRIT 21.9 % (36-52); HEMOGLOBIN 7.2 g/dL (12.0-18.0); LYMPHOCYTES # (AUTO) 0.8 K/uL (2.0-11.5); LYMPHOCYTES % (AUTO) 14.3 % (20.5-51.1); MEAN CORPUSCULAR HEMOGLOBIN 27 pg (27-31); MEAN CORPUSCULAR HGB CONC 33 g/dL (33-37); MEAN CORPUSCULAR VOLUME 82.1 fL (80-94); MONOCYTES # (AUTO) 0.7 K/uL (0.8-1.0); MONOCYTES % (AUTO) 11.6 % (1.7-9.3); NEUTROPHILS # (AUTO) 3.9 K/uL (1.8-7.7); NEUTROPHILS % (AUTO) 68.6 % (42.2-75.2); PLATELET COUNT (AUTO) 206 K/uL (140-450); RED BLOOD CELL COUNT(AUTO) 2.66 MIL/uL (4.20-6.10); RED CELL DISTRIBUTION WIDTH 17.6 % (11.6-13.7); WHITE BLOOD COUNT (AUTO) 5.7 K/uL (4.8-10.8)
[2024-01-14 12:14] LABS: ANION GAP 15.4 (8-16); CALCIUM 8.7 mg/dL (8.5-10.1); CARBON DIOXIDE 25.4 mmol/L (21-32); POTASSIUM 4.8 mmol/L (3.5-5.1)
[2024-01-14 12:20] LABS: CREATININE 9.7 mg/dL (0.6-1.3)
[2024-01-14 14:25] VITALS: BP 140/71; PULSE 73; RESP 16; TEMP 98; O2SAT 99
== END 2024-01-14 14:25 | disposition home or self-care (01) ==
LOC: MED 10:44
DX: Z49.01 Encounter for fitting and adjustment of extracorporeal dialysis catheter (principal); I13.11 Hypertensive heart and chronic kidney disease without heart failure, with stage 5 chronic kidney disease, or end stage renal disease; E11.22 Type 2 diabetes mellitus with diabetic chronic kidney disease; N18.6 End stage renal disease; Z79.4 Long term (current) use of insulin; Z79.899 Other long term (current) drug therapy
CPT/HCPCS: 36415; 71045; 80048; 82948; 85025; 93005; 99285; Q0092

== ENCOUNTER 2024-01-15 13:33 | Inpatient (IN) | payer MEDICAID ==
[~2024-01-15] VITALS: Ht 188 cm; Wt 100.7 kg
[~2024-01-15 13:33] MED LIST changes: -HYDR-1102 PO; -NIFE60TE5 PO
[2024-01-15 14:08] VITALS: BP 152/88; PULSE 76; RESP 20; TEMP 98; O2SAT 75
[2024-01-15 14:28] LABS: BASOPHILS # (AUTO) 0.1 K/uL (0.00-0.22); BASOPHILS % (AUTO) 0.9 % (0.0-2.0); EOSINOPHILS # (AUTO) 0.3 K/uL (0-0.4); EOSINOPHILS % (AUTO) 4.4 % (0.0-4.0); HEMATOCRIT 20.9 % (36-52); LYMPHOCYTES # (AUTO) 1.1 K/uL (2.0-11.5); LYMPHOCYTES % (AUTO) 18.4 % (20.5-51.1); MEAN CORPUSCULAR HEMOGLOBIN 27 pg (27-31); MEAN CORPUSCULAR HGB CONC 33 g/dL (33-37); MEAN CORPUSCULAR VOLUME 82.4 fL (80-94); MONOCYTES # (AUTO) 0.6 K/uL (0.8-1.0); MONOCYTES % (AUTO) 10.3 % (1.7-9.3); NEUTROPHILS # (AUTO) 3.8 K/uL (1.8-7.7); PLATELET COUNT (AUTO) 194 K/uL (140-450); RED BLOOD CELL COUNT(AUTO) 2.53 MIL/uL (4.20-6.10); RED CELL DISTRIBUTION WIDTH 17.6 % (11.6-13.7); WHITE BLOOD COUNT (AUTO) 5.8 K/uL (4.8-10.8)
[2024-01-15 14:42] LABS: HEMOGLOBIN 6.9 g/dL (12.0-18.0)
[2024-01-15 14:43] LABS: ANION GAP 19.4 (8-16); CALCIUM 8.2 mg/dL (8.5-10.1); CARBON DIOXIDE 23.5 mmol/L (21-32); POTASSIUM 4.9 mmol/L (3.5-5.1)
[2024-01-15 15:03] LABS: CREATININE 11.7 mg/dL (0.6-1.3)
[2024-01-15 16:18] LABS: INR 0.99 (0.8-1.2); PARTIAL THROMBOPLASTIN TIME 29.1 secs (22-35.6); PROTHROMBIN TIME 10.4 secs (10.8-13.4)
[2024-01-15] MEDS ORDERED: ACETAMINOPHEN 325 MG TAB ONE (23:02)
[2024-01-15] MEDS: ACETAMINOPHEN 325 MG TAB PO ONE (23:03)
[2024-01-16] VITALS (9 sets, daily range): BP systolic 120–148; BP diastolic 76–81; PULSE 67–85; RESP 18–20; TEMP 97.6–98.6; O2SAT 94–98
[2024-01-16] MEDS ORDERED: ONDANSETRON 4 MG/2 ML VIAL IVP PRN (01:25)
[2024-01-16] MEDS ORDERED: LORazepam 2 MG/ML VIAL IVP PRN (01:25)
[2024-01-16] MEDS ORDERED: DEXTROSE 50% 50 ML SYR IVP PRN (01:35)
[2024-01-16] MEDS: hydrALAZINE 20 MG/ML VIAL IVP PRN (02:11)
[2024-01-16] MEDS ORDERED: TRANEXAMIC ACID 1,000 MG/10 ML VIAL ONE (05:14)
[2024-01-16] MEDS ORDERED: atenoloL 25 MG TAB ONE (07:52)
[2024-01-16] MEDS ORDERED: NIFEdipine 30 MG TABER PO ONE (07:52)
[2024-01-16] MEDS: SEVELAMER CARBONATE 800 MG TAB PO SCH (08:00)
[2024-01-16] MEDS: CALCIUM ACETATE 667 MG TAB PO SCH (08:00)
[2024-01-16] MEDS ORDERED: CALCIUM ACETATE 667 MG TAB PO SCH (09:00)
[2024-01-16] MEDS: atenoloL 25 MG TAB PO SCH (09:00)
[2024-01-16] MEDS: BLOOD GLUCOSE MONITORING 1 DEV DEV FS SCH (12:01)
[2024-01-16] MEDS: ASPIRIN 81 MG TAB.CHEW PO SCH (12:07)
[2024-01-16] MEDS: QUEtiapine FUMARATE 100 MG TAB PO SCH (12:07)
[2024-01-16] MEDS: ATORVASTATIN 20 MG TAB PO SCH (12:08)
[2024-01-16] MEDS: APIXABAN 2.5 MG TAB PO SCH (12:09)
[2024-01-16] MEDS: NIFEdipine 60 MG TABER PO SCH (12:09)
[2024-01-17] VITALS (8 sets, daily range): BP systolic 133–161; BP diastolic 68–92; PULSE 65–83; RESP 16–20; TEMP 97.6–98.5; O2SAT 92–99
[2024-01-17 05:34] LABS: BASOPHILS % (AUTO) 0.7 % (0.0-2.0); EOSINOPHILS # (AUTO) 0.2 K/uL (0-0.4); EOSINOPHILS % (AUTO) 4.8 % (0.0-4.0); HEMATOCRIT 22.3 % (36-52); HEMOGLOBIN 7.4 g/dL (12.0-18.0); LYMPHOCYTES # (AUTO) 0.8 K/uL (2.0-11.5); LYMPHOCYTES % (AUTO) 16.5 % (20.5-51.1); MEAN CORPUSCULAR HEMOGLOBIN 27 pg (27-31); MEAN CORPUSCULAR HGB CONC 33 g/dL (33-37); MEAN CORPUSCULAR VOLUME 82.4 fL (80-94); MONOCYTES # (AUTO) 0.5 K/uL (0.8-1.0); MONOCYTES % (AUTO) 10.8 % (1.7-9.3); NEUTROPHILS # (AUTO) 3.1 K/uL (1.8-7.7); NEUTROPHILS % (AUTO) 67.2 % (42.2-75.2); PLATELET COUNT (AUTO) 180 K/uL (140-450); RED BLOOD CELL COUNT(AUTO) 2.71 MIL/uL (4.20-6.10); RED CELL DISTRIBUTION WIDTH 17.2 % (11.6-13.7); WHITE BLOOD COUNT (AUTO) 4.6 K/uL (4.8-10.8)
[2024-01-17 05:44] LABS: ANION GAP 16.6 (8-16); CALCIUM 8.4 mg/dL (8.5-10.1); CARBON DIOXIDE 27.6 mmol/L (21-32); POTASSIUM 5.2 mmol/L (3.5-5.1)
[2024-01-17] MEDS ORDERED: VANCOMYCIN PER PHARMACY MC PRN (07:15)
[2024-01-17 07:35] LABS: CREATININE 10.4 mg/dL (0.6-1.3)
[2024-01-17] MEDS ORDERED: ASPIRIN 81 MG TAB.CHEW PO SCH (09:00)
[2024-01-17] MEDS: EPOETIN ALFA-EPBX 10,000 UNITS/ML VIAL IV SCH (10:01)
[2024-01-17] MEDS: CRUSHER, PILL MC ONE (11:28)
[2024-01-17] MEDS ORDERED: THERAHONEY GEL 42.5 GM TP PRN (12:00)
[2024-01-17] MEDS ORDERED: FOAM DRESSING TP PRN (12:00)
[2024-01-17] MEDS: THERAHONEY GEL 42.5 GM TP SCH (13:00)
[2024-01-17] MEDS: FOAM DRESSING TP SCH (13:00)
[2024-01-17] MEDS: VANCOMYCIN 1,000 MG in DEXTROSE 5% 250 ML IV SCH (20:36)
[2024-01-18] VITALS: BP 138/72; PULSE 78; RESP 18; TEMP 98.2; O2SAT 97
[2024-01-18 05:25] LABS: BASOPHILS % (AUTO) 0.7 % (0.0-2.0); EOSINOPHILS # (AUTO) 0.2 K/uL (0-0.4); EOSINOPHILS % (AUTO) 4.8 % (0.0-4.0); LYMPHOCYTES # (AUTO) 0.8 K/uL (2.0-11.5); LYMPHOCYTES % (AUTO) 18.5 % (20.5-51.1); MEAN CORPUSCULAR HEMOGLOBIN 27 pg (27-31); MEAN CORPUSCULAR HGB CONC 32 g/dL (33-37); MEAN CORPUSCULAR VOLUME 82.4 fL (80-94); MONOCYTES # (AUTO) 0.4 K/uL (0.8-1.0); MONOCYTES % (AUTO) 9.7 % (1.7-9.3); NEUTROPHILS # (AUTO) 2.8 K/uL (1.8-7.7); NEUTROPHILS % (AUTO) 66.3 % (42.2-75.2); PLATELET COUNT (AUTO) 162 K/uL (140-450); RED BLOOD CELL COUNT(AUTO) 2.44 MIL/uL (4.20-6.10); RED CELL DISTRIBUTION WIDTH 17.2 % (11.6-13.7); WHITE BLOOD COUNT (AUTO) 4.3 K/uL (4.8-10.8)
[2024-01-18 05:28] LABS: ANION GAP 14.8 (8-16); CALCIUM 8.4 mg/dL (8.5-10.1); CARBON DIOXIDE 28.4 mmol/L (21-32); POTASSIUM 4.2 mmol/L (3.5-5.1)
[2024-01-18 05:56] LABS: CREATININE 7.8 mg/dL (0.6-1.3)
[2024-01-18 06:32] LABS: HEMOGLOBIN 6.5 g/dL (12.0-18.0)
[2024-01-18 06:33] LABS: HEMATOCRIT 20.1 % (36-52)
[2024-01-18 08:00] VITALS: BP 140/80; PULSE 78; PULSE 82; RESP 18; TEMP 208.6; TEMP 98.1; O2SAT 98; O2SAT 99
[2024-01-18 16:00] VITALS: BP 150/62; PULSE 89; RESP 18; TEMP 96.7; O2SAT 99
[2024-01-18] MEDS: HYDROcodone/APAP 5/325 MG 1 TAB TAB PO PRN (16:01)
[2024-01-18 20:00] VITALS: PULSE 78; RESP 18; TEMP 97.9; O2SAT 99
[2024-01-19] VITALS: BP 153/79; PULSE 78; RESP 18; TEMP 97.9; O2SAT 99
[2024-01-19 08:00] VITALS: BP 168/95; PULSE 68; PULSE 75; RESP 18; RESP 20; TEMP 97.8; O2SAT 100; O2SAT 97
[2024-01-19 08:10] VITALS: PULSE 68; RESP 16; O2SAT 100; O2SAT 99
[2024-01-19 10:39] LABS: HEMATOCRIT 26.1 % (36-52); HEMOGLOBIN 8.5 g/dL (12.0-18.0); MEAN CORPUSCULAR HEMOGLOBIN 28 pg (27-31); MEAN CORPUSCULAR HGB CONC 32 g/dL (33-37); MEAN CORPUSCULAR VOLUME 85.1 fL (80-94); PLATELET COUNT (AUTO) 139 K/uL (140-450); RED BLOOD CELL COUNT(AUTO) 3.07 MIL/uL (4.20-6.10); RED CELL DISTRIBUTION WIDTH 17.6 % (11.6-13.7); WHITE BLOOD COUNT (AUTO) 4.1 K/uL (4.8-10.8)
[2024-01-19 10:47] LABS: ANION GAP 12.5 (8-16); CALCIUM 8.5 mg/dL (8.5-10.1); CARBON DIOXIDE 28.1 mmol/L (21-32); POTASSIUM 4.6 mmol/L (3.5-5.1)
[2024-01-19 10:49] LABS: CREATININE 7.2 mg/dL (0.6-1.3)
[2024-01-19 11:42] LABS: EOSINOPHILS % (MANUAL) 7 % (0-4); LYMPHOCYTES % (MANUAL) 26 % (20-46); MONOCYTES % (MANUAL) 7 % (5-12); PLATELET ESTIMATE ADEQUATE
[2024-01-19] MEDS: VANCOMYCIN 1,000 MG in DEXTROSE 5% 250 ML IV SCH (13:26)
[2024-01-19 16:00] VITALS: BP 159/59; PULSE 67; RESP 67; TEMP 97.1; O2SAT 99
[2024-01-19 20:00] VITALS: PULSE 72; RESP 20; TEMP 97.9; O2SAT 94
[2024-01-20] VITALS: BP 155/85; PULSE 72; RESP 18; TEMP 98.5; O2SAT 96
[2024-01-20 07:07] LABS: BASOPHILS % (AUTO) 0.2 % (0.0-2.0); EOSINOPHILS # (AUTO) 0.3 K/uL (0-0.4); EOSINOPHILS % (AUTO) 5.7 % (0.0-4.0); HEMATOCRIT 24.5 % (36-52); HEMOGLOBIN 7.9 g/dL (12.0-18.0); LYMPHOCYTES % (AUTO) 22.3 % (20.5-51.1); MEAN CORPUSCULAR HEMOGLOBIN 28 pg (27-31); MEAN CORPUSCULAR HGB CONC 32 g/dL (33-37); MONOCYTES # (AUTO) 0.4 K/uL (0.8-1.0); MONOCYTES % (AUTO) 8.2 % (1.7-9.3); NEUTROPHILS # (AUTO) 2.9 K/uL (1.8-7.7); NEUTROPHILS % (AUTO) 63.6 % (42.2-75.2); PLATELET COUNT (AUTO) 129 K/uL (140-450); RED BLOOD CELL COUNT(AUTO) 2.88 MIL/uL (4.20-6.10); RED CELL DISTRIBUTION WIDTH 17.1 % (11.6-13.7); WHITE BLOOD COUNT (AUTO) 4.5 K/uL (4.8-10.8)
[2024-01-20 07:33] LABS: ANION GAP 17.2 (8-16); CALCIUM 8.6 mg/dL (8.5-10.1); CARBON DIOXIDE 26.7 mmol/L (21-32); POTASSIUM 5.9 mmol/L (3.5-5.1)
[2024-01-20 07:44] LABS: CREATININE 8.9 mg/dL (0.6-1.3)
[2024-01-20 08:00] VITALS: BP 187/65; PULSE 69; RESP 20; TEMP 97.7; O2SAT 100
[2024-01-20 08:24] VITALS: TEMP 98.1
[2024-01-20 08:28] VITALS: PULSE 68; RESP 19; O2SAT 99
[2024-01-20 16:00] VITALS: BP 125/69; PULSE 63; RESP 20; TEMP 97.5; O2SAT 98
[2024-01-20 20:00] VITALS: PULSE 68; RESP 18; TEMP 98.5; O2SAT 95
[2024-01-21] VITALS: BP 138/73; PULSE 68; RESP 18; TEMP 98.5; O2SAT 95
[2024-01-21 07:13] LABS: EOSINOPHILS # (AUTO) 0.3 K/uL (0-0.4); HEMATOCRIT 25.3 % (36-52); HEMOGLOBIN 8.1 g/dL (12.0-18.0); LYMPHOCYTES # (AUTO) 1.1 K/uL (2.0-11.5); LYMPHOCYTES % (AUTO) 23.4 % (20.5-51.1); MEAN CORPUSCULAR HEMOGLOBIN 27 pg (27-31); MEAN CORPUSCULAR HGB CONC 32 g/dL (33-37); MEAN CORPUSCULAR VOLUME 84.4 fL (80-94); MONOCYTES # (AUTO) 0.5 K/uL (0.8-1.0); MONOCYTES % (AUTO) 9.9 % (1.7-9.3); NEUTROPHILS # (AUTO) 2.7 K/uL (1.8-7.7); NEUTROPHILS % (AUTO) 58.7 % (42.2-75.2); PLATELET COUNT (AUTO) 112 K/uL (140-450); WHITE BLOOD COUNT (AUTO) 4.6 K/uL (4.8-10.8)
[2024-01-21 07:31] LABS: ANION GAP 16.4 (8-16); CALCIUM 8.7 mg/dL (8.5-10.1); POTASSIUM 5.4 mmol/L (3.5-5.1)
[2024-01-21 07:34] LABS: CREATININE 7.7 mg/dL (0.6-1.3)
[2024-01-21 08:00] VITALS: BP 161/70; PULSE 71; RESP 18; TEMP 98.2; O2SAT 99
[2024-01-21 16:00] VITALS: BP 120/88; PULSE 73; RESP 18; TEMP 98.2
[2024-01-21 20:00] VITALS: BP 148/72; PULSE 76; RESP 21; TEMP 98; O2SAT 98
[2024-01-22 04:00] VITALS: BP 148/73; PULSE 75; RESP 21; TEMP 98.6; O2SAT 98
[2024-01-22 05:52] LABS: ANION GAP 10.3 (8-16); CALCIUM 8.4 mg/dL (8.5-10.1); CARBON DIOXIDE 25.5 mmol/L (21-32); POTASSIUM 4.8 mmol/L (3.5-5.1)
[2024-01-22 05:54] LABS: CREATININE 6.8 mg/dL (0.6-1.3)
[2024-01-22 07:05] LABS: BASOPHILS # (AUTO) 0.1 K/uL (0.00-0.22); BASOPHILS % (AUTO) 1.4 % (0.0-2.0); EOSINOPHILS # (AUTO) 0.2 K/uL (0-0.4); HEMATOCRIT 23.9 % (36-52); HEMOGLOBIN 7.8 g/dL (12.0-18.0); LYMPHOCYTES # (AUTO) 1.1 K/uL (2.0-11.5); LYMPHOCYTES % (AUTO) 29.5 % (20.5-51.1); MEAN CORPUSCULAR HEMOGLOBIN 27 pg (27-31); MEAN CORPUSCULAR HGB CONC 33 g/dL (33-37); MEAN CORPUSCULAR VOLUME 84.1 fL (80-94); MONOCYTES # (AUTO) 0.5 K/uL (0.8-1.0); MONOCYTES % (AUTO) 13.6 % (1.7-9.3); NEUTROPHILS # (AUTO) 1.9 K/uL (1.8-7.7); NEUTROPHILS % (AUTO) 49.5 % (42.2-75.2); PLATELET COUNT (AUTO) 123 K/uL (140-450); RED BLOOD CELL COUNT(AUTO) 2.84 MIL/uL (4.20-6.10); RED CELL DISTRIBUTION WIDTH 17.5 % (11.6-13.7); WHITE BLOOD COUNT (AUTO) 3.8 K/uL (4.8-10.8)
[2024-01-22 08:00] VITALS: PULSE 110; O2SAT 98
[2024-01-22] MEDS: INSULIN LISPRO SLIDING SCALE 100 UNITS/ML VIAL SUBQ PRN (11:36)
[2024-01-22] MEDS: GAUZE TP SCH (13:04)
[2024-01-22] MEDS ORDERED: GAUZE TP SCH (15:20)
[2024-01-22 16:00] VITALS: BP 129/89; PULSE 90; RESP 19; TEMP 98.3; O2SAT 98
[2024-01-22 20:00] VITALS: PULSE 76; RESP 19; O2SAT 99
[2024-01-22] MEDS: VANCOMYCIN 750 MG in DEXTROSE 5% 250 ML IV SCH (21:10)
[2024-01-23 04:00] VITALS: BP 182/83; PULSE 76; RESP 18; TEMP 97.7; O2SAT 98
[2024-01-23 05:29] LABS: BASOPHILS # (AUTO) 0.1 K/uL (0.00-0.22); BASOPHILS % (AUTO) 1.4 % (0.0-2.0); EOSINOPHILS # (AUTO) 0.2 K/uL (0-0.4); EOSINOPHILS % (AUTO) 5.6 % (0.0-4.0); HEMATOCRIT 22.5 % (36-52); HEMOGLOBIN 7.3 g/dL (12.0-18.0); LYMPHOCYTES # (AUTO) 1.2 K/uL (2.0-11.5); LYMPHOCYTES % (AUTO) 28.2 % (20.5-51.1); MEAN CORPUSCULAR HEMOGLOBIN 28 pg (27-31); MEAN CORPUSCULAR HGB CONC 33 g/dL (33-37); MEAN CORPUSCULAR VOLUME 84.6 fL (80-94); MONOCYTES # (AUTO) 0.5 K/uL (0.8-1.0); NEUTROPHILS # (AUTO) 2.3 K/uL (1.8-7.7); NEUTROPHILS % (AUTO) 53.8 % (42.2-75.2); PLATELET COUNT (AUTO) 138 K/uL (140-450); RED BLOOD CELL COUNT(AUTO) 2.66 MIL/uL (4.20-6.10); RED CELL DISTRIBUTION WIDTH 17.3 % (11.6-13.7); WHITE BLOOD COUNT (AUTO) 4.2 K/uL (4.8-10.8)
[2024-01-23 06:18] LABS: ANION GAP 17.3 (8-16); CALCIUM 8.7 mg/dL (8.5-10.1); CARBON DIOXIDE 26.9 mmol/L (21-32); POTASSIUM 5.2 mmol/L (3.5-5.1)
[2024-01-23 07:13] LABS: CREATININE 8.8 mg/dL (0.6-1.3)
[2024-01-23 08:00] VITALS: BP 169/75; PULSE 77; RESP 18; TEMP 97.8; O2SAT 99
[2024-01-23 08:09] LABS: HEPATITIS A ANTIBODY IGM Negative (Negative); HEPATITIS B CORE AB TOTAL Negative (Negative); HEPATITIS B CORE, IGM Negative (Negative); HEPATITIS B SURFACE ANTIBODY Non Reactive (.); HEPATITIS B SURFACE ANTIGEN Negative (Negative); HEPATITIS C VIRUS ANTIBODY Non Reactive (Non Reactive)
[2024-01-23 08:26] VITALS: PULSE 78; RESP 20; O2SAT 98
[2024-01-23 16:00] VITALS: BP 154/73; PULSE 84; RESP 18; TEMP 98.3; O2SAT 100
[2024-01-23 20:00] VITALS: BP 137/74; PULSE 74; RESP 18; TEMP 97.1; O2SAT 96
[2024-01-23] MEDS: ACETAMINOPHEN 325 MG TAB PO PRN (23:19)
[2024-01-24 04:00] VITALS: BP 141/67; PULSE 68; RESP 18; TEMP 96.9; O2SAT 97
[2024-01-24 05:45] LABS: BASOPHILS % (AUTO) 1.4 % (0.0-2.0); EOSINOPHILS # (AUTO) 0.2 K/uL (0-0.4); EOSINOPHILS % (AUTO) 7.2 % (0.0-4.0); HEMATOCRIT 20.9 % (36-52); LYMPHOCYTES % (AUTO) 29.1 % (20.5-51.1); MEAN CORPUSCULAR HEMOGLOBIN 28 pg (27-31); MEAN CORPUSCULAR HGB CONC 33 g/dL (33-37); MEAN CORPUSCULAR VOLUME 84.7 fL (80-94); MONOCYTES # (AUTO) 0.4 K/uL (0.8-1.0); MONOCYTES % (AUTO) 11.6 % (1.7-9.3); NEUTROPHILS # (AUTO) 1.7 K/uL (1.8-7.7); NEUTROPHILS % (AUTO) 50.7 % (42.2-75.2); PLATELET COUNT (AUTO) 124 K/uL (140-450); RED BLOOD CELL COUNT(AUTO) 2.46 MIL/uL (4.20-6.10); RED CELL DISTRIBUTION WIDTH 17.6 % (11.6-13.7); WHITE BLOOD COUNT (AUTO) 3.3 K/uL (4.8-10.8)
[2024-01-24 06:00] LABS: ANION GAP 11.4 (8-16); CALCIUM 8.9 mg/dL (8.5-10.1); CARBON DIOXIDE 30.1 mmol/L (21-32); POTASSIUM 4.5 mmol/L (3.5-5.1)
[2024-01-24 06:15] LABS: CREATININE 7.7 mg/dL (0.6-1.3)
[2024-01-24 06:17] LABS: HEMOGLOBIN 6.8 g/dL (12.0-18.0)
[2024-01-24 08:00] VITALS: BP 165/87; PULSE 68; RESP 18; TEMP 97.3; O2SAT 100
[2024-01-24 08:16] VITALS: PULSE 78; RESP 20; O2SAT 99
[2024-01-24] MEDS: VANCOMYCIN 1,000 MG in DEXTROSE 5% 250 ML IV SCH (09:13)
[2024-01-24] MEDS ORDERED: CLINICAL MONITORING MC PRN (15:00)
[2024-01-24 16:00] VITALS: BP 128/51; PULSE 60; RESP 18; TEMP 97.7; O2SAT 100
[2024-01-24 20:00] VITALS: PULSE 71; RESP 8; O2SAT 97
[2024-01-24 20:49] LABS: HEMATOCRIT 23.1 % (36-52); HEMOGLOBIN 7.5 g/dL (12.0-18.0)
[2024-01-25 04:00] VITALS: BP 134/61; PULSE 75; RESP 18; TEMP 97.4; O2SAT 97
[2024-01-25 05:20] LABS: BASOPHILS # (AUTO) 0.1 K/uL (0.00-0.22); BASOPHILS % (AUTO) 1.4 % (0.0-2.0); EOSINOPHILS # (AUTO) 0.3 K/uL (0-0.4); EOSINOPHILS % (AUTO) 6.6 % (0.0-4.0); HEMOGLOBIN 7.4 g/dL (12.0-18.0); LYMPHOCYTES # (AUTO) 1.2 K/uL (2.0-11.5); MEAN CORPUSCULAR HEMOGLOBIN 29 pg (27-31); MEAN CORPUSCULAR HGB CONC 34 g/dL (33-37); MEAN CORPUSCULAR VOLUME 84.9 fL (80-94); MONOCYTES # (AUTO) 0.5 K/uL (0.8-1.0); MONOCYTES % (AUTO) 11.5 % (1.7-9.3); NEUTROPHILS # (AUTO) 2.3 K/uL (1.8-7.7); NEUTROPHILS % (AUTO) 53.5 % (42.2-75.2); PLATELET COUNT (AUTO) 142 K/uL (140-450); RED BLOOD CELL COUNT(AUTO) 2.59 MIL/uL (4.20-6.10); RED CELL DISTRIBUTION WIDTH 17.2 % (11.6-13.7); WHITE BLOOD COUNT (AUTO) 4.3 K/uL (4.8-10.8)
[2024-01-25 05:50] LABS: ANION GAP 18.2 (8-16); CALCIUM 8.6 mg/dL (8.5-10.1); POTASSIUM 5.2 mmol/L (3.5-5.1)
[2024-01-25 07:27] LABS: CREATININE 9.8 mg/dL (0.6-1.3)
[2024-01-25 08:00] VITALS: PULSE 68; RESP 20; TEMP 97.3; O2SAT 99
[2024-01-25 12:37] LABS: HEPATITIS A ANTIBODY TOTAL Positive (Negative)
[2024-01-25 12:58] VITALS: BP 127/70
== END 2024-01-25 15:00 | DRG 194 ==
LOC: MED 13:33 → UNDOADMOB 14:26 → MTU 14:26 → MMU 01-16 09:28
PROVIDERS: ADMIT Internal Medicine; ATTEND Internal Medicine
PROC: 5A1D70Z Performance of Urinary Filtration, Intermittent, Less than 6 Hours Per Day (ICD-10-PCS; principal; 2024-01-16)
PROC: 5A1D70Z Performance of Urinary Filtration, Intermittent, Less than 6 Hours Per Day (ICD-10-PCS; 2024-01-17)
PROC: 30233N1 Transfusion of Nonautologous Red Blood Cells into Peripheral Vein, Percutaneous Approach (ICD-10-PCS; 2024-01-18)
PROC: 5A1D70Z Performance of Urinary Filtration, Intermittent, Less than 6 Hours Per Day (ICD-10-PCS; 2024-01-19)
PROC: 5A1D70Z Performance of Urinary Filtration, Intermittent, Less than 6 Hours Per Day (ICD-10-PCS; 2024-01-20)
PROC: 5A1D70Z Performance of Urinary Filtration, Intermittent, Less than 6 Hours Per Day (ICD-10-PCS; 2024-01-21)
PROC: 5A1D70Z Performance of Urinary Filtration, Intermittent, Less than 6 Hours Per Day (ICD-10-PCS; 2024-01-23)
DX: I13.2 Hypertensive heart and chronic kidney disease with heart failure and with stage 5 chronic kidney disease, or end stage renal disease (principal); N18.6 End stage renal disease; E11.22 Type 2 diabetes mellitus with diabetic chronic kidney disease; R78.81 Bacteremia; D64.9 Anemia, unspecified; Z59.00 Homelessness unspecified; Z89.511 Acquired absence of right leg below knee; I50.9 Heart failure, unspecified; Z99.2 Dependence on renal dialysis; Z91.199 Patient's noncompliance with other medical treatment and regimen due to unspecified reason
CPT/HCPCS: 36415; 36430; 73630; 80048; 80202; 82948; 84100; 85018; 85025; 85610; 85730; 86704; 86706; 86708; 86709; 86803; 86886; 86900; 86901; 86920; 87081; 87340; 90935; 93005; 96374; 96375; 97110; 97112; 97163-GP; 97530; 99291; J0360; J1644; J1815; J3370; J3490; J7060; P9016; Q5106

== ENCOUNTER 2024-01-27 22:38 | Emergency (ER) | payer MEDICAID ==
[~2024-01-27] VITALS: Ht 182.9 cm; Wt 108.9 kg
[2024-01-27 22:38] VITALS: BP 111/62; PULSE 89; RESP 16; TEMP 98.4; O2SAT 98
[~2024-01-27 22:38] MED LIST changes: -ACET-10509 PO; -APIX2.5 PO; -CALC667C12 PO
[2024-01-27] MEDS: PIPERACILLIN/TAZOBACTAM 2.25 GM in DEXTROSE 5% 50 ML IV ONE (22:55)
[2024-01-27] MEDS: VANCOMYCIN 1,500 MG in DEXTROSE 5% 250 ML IV ONE (22:55)
[2024-01-28] MEDS ORDERED: PIPERACILLIN/TAZOBACTAM 2.25 GM VIAL IV ONE (00:21)
[2024-01-28] MEDS ORDERED: VANCOMYCIN 1,000 MG VIAL ONE (00:25)
[2024-01-28] MEDS ORDERED: VANCOMYCIN 500 MG VIAL ONE (00:25)
[2024-01-28] MEDS: ACETAMINOPHEN EXTRA STRENGTH 500 MG TAB PO ONE (02:14)
[2024-01-28 02:18] VITALS: TEMP 98
[2024-01-28 03:36] VITALS: BP 165/76; PULSE 75; RESP 18; O2SAT 99
== END 2024-01-28 03:36 | disposition home or self-care (01) ==
LOC: MED 22:38
DX: Z45.2 Encounter for adjustment and management of vascular access device (principal); I12.0 Hypertensive chronic kidney disease with stage 5 chronic kidney disease or end stage renal disease; N18.6 End stage renal disease; Z99.2 Dependence on renal dialysis; Z79.1 Long term (current) use of non-steroidal anti-inflammatories (NSAID); Z79.2 Long term (current) use of antibiotics; Z79.82 Long term (current) use of aspirin; Z79.899 Other long term (current) drug therapy
CPT/HCPCS: 36410; 71045; 96365; 96368; 99285; J2543; J3370; Q0092; 96366; 96367; J7060

== ENCOUNTER 2024-02-24 05:59 | Inpatient (IN) | payer MEDICAID ==
[2024-02-24] VITALS (10 sets, daily range): BP systolic 169–196; BP diastolic 91–106; PULSE 70–81; RESP 17–24; TEMP 97.1–97.5; O2SAT 95–100
[~2024-02-24] VITALS: Ht 182.9 cm; Wt 135.6 kg
[2024-02-24 07:47] LABS: BASOPHILS % (AUTO) 0.5 % (0.0-2.0); EOSINOPHILS # (AUTO) 0.3 K/uL (0-0.4); EOSINOPHILS % (AUTO) 4.6 % (0.0-4.0); HEMATOCRIT 20.8 % (36-52); LYMPHOCYTES % (AUTO) 17.6 % (20.5-51.1); MEAN CORPUSCULAR HEMOGLOBIN 27 pg (27-31); MEAN CORPUSCULAR HGB CONC 33 g/dL (33-37); MEAN CORPUSCULAR VOLUME 83.9 fL (80-94); MONOCYTES # (AUTO) 0.4 K/uL (0.8-1.0); MONOCYTES % (AUTO) 7.5 % (1.7-9.3); NEUTROPHILS # (AUTO) 3.9 K/uL (1.8-7.7); NEUTROPHILS % (AUTO) 69.8 % (42.2-75.2); PLATELET COUNT (AUTO) 122 K/uL (140-450); RED BLOOD CELL COUNT(AUTO) 2.48 MIL/uL (4.20-6.10); RED CELL DISTRIBUTION WIDTH 17.6 % (11.6-13.7); WHITE BLOOD COUNT (AUTO) 5.6 K/uL (4.8-10.8)
[2024-02-24 07:54] LABS: HEMOGLOBIN 6.8 g/dL (12.0-18.0)
[2024-02-24 08:02] LABS: ANION GAP 17.7 (8-16); CALCIUM 8.7 mg/dL (8.5-10.1); CARBON DIOXIDE 27.8 mmol/L (21-32); POTASSIUM 5.5 mmol/L (3.5-5.1)
[2024-02-24 08:11] LABS: ALANINE AMINOTRANSFERASE 40 U/L (12-78); ALBUMIN 3.7 g/dL (3.4-5.0); ALKALINE PHOSPHATASE 110 U/L (50-136); ASPARTATE AMINOTRANSFERASE 27 U/L (15-37); BILIRUBIN,DIRECT 0.1 mg/dL (0.0-0.3); CREATINE KINASE, TOTAL 231 U/L (39-308); CREATININE 11.3 mg/dL (0.6-1.3); LACTIC ACID 0.3 mmol/L (0.4-2.0); TOTAL BILIRUBIN 0.4 mg/dL (0.0-1.0); TOTAL PROTEIN, SERUM 8.1 g/dL (6.4-8.2)
[2024-02-24 08:40] LABS: INR 0.99 (0.8-1.2); PARTIAL THROMBOPLASTIN TIME 24.9 secs (22-35.6); PROTHROMBIN TIME 10.4 secs (10.8-13.4)
[2024-02-24 08:50] LABS: APPEARANCE,URINE CLEAR (CLEAR); BILIRUBIN,URINE NEGATIVE (NEGATIVE); BLOOD, URINE 2+ (NEGATIVE); COLOR,URINE YELLOW (YELLOW); LEUKOCYTE ESTERASE ,URINE NEGATIVE (NEGATIVE); NITRITE, URINE NEGATIVE (NEGATIVE); PH,URINE 8.5 (5.0-9.0); PROTEIN,URINE 3+ (NEGATIVE); UGLUCOSE 1+ (NEGATIVE); UROBILINOGEN,URINE 0.2 EU/dL (0.2 - 1)
[2024-02-24 08:52] LABS: BACTERIA,URINE 0-2 /HPF (None Seen); RBC,URINE 11-20 (MOD) /HPF (0-5); SQUAMOUS EPITHELIAL CELL,UR 0-3 (FEW) /LPF (0-3 (FEW)); WBC,URINE 0-5 /HPF (0-5)
[2024-02-24] MEDS ORDERED: ONDANSETRON 4 MG/2 ML VIAL IVP PRN (09:25)
[2024-02-24] MEDS: PANTOPRAZOLE 40 MG TABEC PO SCH (10:11)
[2024-02-24] MEDS: NITROGLYCERIN 0.4 MG TAB SL ONE (10:12)
[2024-02-24] MEDS: ALBUTEROL 0.083% 2.5 MG/3 ML NEBU INH PRN (11:48)
[2024-02-24] MEDS: hydrALAZINE 20 MG/ML VIAL IVP PRN (13:21)
[2024-02-25] VITALS (10 sets, daily range): BP systolic 146–191; BP diastolic 72–102; PULSE 72–79; RESP 20; TEMP 97.8–98.2; O2SAT 96–100
[2024-02-25] MEDS: LABETALOL 20 MG/4 ML VIAL IVP PRN (00:24)
[2024-02-25 04:45] LABS: AMPHETAMINE, URINE NEGATIVE ng/ml (NEG <=1000); BARBITURATE, URINE NEGATIVE ng/ml (NEG <=200); BENZODIAZEPINE, URINE NEGATIVE ng/mL (NEG <=200); CANNABINOID, URINE NEGATIVE ng/mL (NEG <=50); COCAINE, URINE NEGATIVE ng/mL (NEG <=300); OPIATE, URINE NEGATIVE ng/mL (NEG <=2000); PHENCYCLIDINE SCREEN,URINE NEGATIVE ng/mL (NEG <=25)
[2024-02-25 08:27] LABS: BASOPHILS % (AUTO) 0.5 % (0.0-2.0); EOSINOPHILS # (AUTO) 0.2 K/uL (0-0.4); EOSINOPHILS % (AUTO) 4.6 % (0.0-4.0); HEMATOCRIT 20.6 % (36-52); LYMPHOCYTES # (AUTO) 0.7 K/uL (2.0-11.5); LYMPHOCYTES % (AUTO) 15.4 % (20.5-51.1); MEAN CORPUSCULAR HEMOGLOBIN 28 pg (27-31); MEAN CORPUSCULAR HGB CONC 33 g/dL (33-37); MEAN CORPUSCULAR VOLUME 84.2 fL (80-94); MONOCYTES # (AUTO) 0.4 K/uL (0.8-1.0); MONOCYTES % (AUTO) 8.3 % (1.7-9.3); NEUTROPHILS # (AUTO) 3.3 K/uL (1.8-7.7); NEUTROPHILS % (AUTO) 71.2 % (42.2-75.2); PLATELET COUNT (AUTO) 122 K/uL (140-450); RED BLOOD CELL COUNT(AUTO) 2.45 MIL/uL (4.20-6.10); RED CELL DISTRIBUTION WIDTH 17.9 % (11.6-13.7); WHITE BLOOD COUNT (AUTO) 4.6 K/uL (4.8-10.8)
[2024-02-25 08:36] LABS: ANION GAP 17.8 (8-16); CALCIUM 9.2 mg/dL (8.5-10.1); CARBON DIOXIDE 26.1 mmol/L (21-32); POTASSIUM 5.9 mmol/L (3.5-5.1)
[2024-02-25 08:39] LABS: HEMOGLOBIN 6.8 g/dL (12.0-18.0)
[2024-02-25 08:41] LABS: MAGNESIUM 2.2 mg/dL (1.8-2.4); PHOSPHORUS 8.7 mg/dL (2.5-4.9)
[2024-02-25 08:42] LABS: CREATININE 10.9 mg/dL (0.6-1.3)
[2024-02-25] MEDS ORDERED: SODIUM ZIRCONIUM CYCLOSILICATE 10 GM POWD.PACK PO ONE (09:45)
[2024-02-25] MEDS: SODIUM ZIRCONIUM CYCLOSILICATE 10 GM POWD.PACK PO SCH (10:10)
[2024-02-25] MEDS: NIFEdipine 60 MG TABER PO SCH (11:25)
[2024-02-25] MEDS: hydrALAZINE 20 MG/ML VIAL IVP PRN (11:27)
[2024-02-25] MEDS: HYDROcodone/APAP 5/325 MG 1 TAB TAB PO PRN (14:39)
[2024-02-25] MEDS: EPOETIN ALFA-EPBX 10,000 UNITS/ML VIAL SUBQ SCH (16:28)
[2024-02-26] VITALS (12 sets, daily range): BP systolic 133–163; BP diastolic 57–93; PULSE 71–86; RESP 18–20; TEMP 97–98.5; O2SAT 97–100
[2024-02-26 06:53] LABS: BASOPHILS % (AUTO) 0.3 % (0.0-2.0); EOSINOPHILS # (AUTO) 0.3 K/uL (0-0.4); EOSINOPHILS % (AUTO) 7.6 % (0.0-4.0); HEMATOCRIT 22.3 % (36-52); HEMOGLOBIN 7.4 g/dL (12.0-18.0); LYMPHOCYTES # (AUTO) 0.7 K/uL (2.0-11.5); LYMPHOCYTES % (AUTO) 16.9 % (20.5-51.1); MEAN CORPUSCULAR HEMOGLOBIN 27 pg (27-31); MEAN CORPUSCULAR HGB CONC 33 g/dL (33-37); MEAN CORPUSCULAR VOLUME 82.7 fL (80-94); MONOCYTES # (AUTO) 0.3 K/uL (0.8-1.0); MONOCYTES % (AUTO) 8.1 % (1.7-9.3); NEUTROPHILS # (AUTO) 2.7 K/uL (1.8-7.7); NEUTROPHILS % (AUTO) 67.1 % (42.2-75.2); PLATELET COUNT (AUTO) 121 K/uL (140-450); RED CELL DISTRIBUTION WIDTH 17.8 % (11.6-13.7); WHITE BLOOD COUNT (AUTO) 4.1 K/uL (4.8-10.8)
[2024-02-26 07:16] LABS: ANION GAP 18.3 (8-16); CALCIUM 8.6 mg/dL (8.5-10.1); CARBON DIOXIDE 26.4 mmol/L (21-32); POTASSIUM 4.7 mmol/L (3.5-5.1)
[2024-02-27] VITALS (12 sets, daily range): BP systolic 146–185; BP diastolic 67–98; PULSE 72–83; RESP 17–20; TEMP 97–98.6; O2SAT 93–100
[2024-02-27 07:17] LABS: BASOPHILS % (AUTO) 0.5 % (0.0-2.0); EOSINOPHILS # (AUTO) 0.3 K/uL (0-0.4); EOSINOPHILS % (AUTO) 8.3 % (0.0-4.0); HEMATOCRIT 23.1 % (36-52); HEMOGLOBIN 7.5 g/dL (12.0-18.0); LYMPHOCYTES # (AUTO) 0.8 K/uL (2.0-11.5); LYMPHOCYTES % (AUTO) 21.7 % (20.5-51.1); MEAN CORPUSCULAR HEMOGLOBIN 27 pg (27-31); MEAN CORPUSCULAR HGB CONC 33 g/dL (33-37); MEAN CORPUSCULAR VOLUME 83.6 fL (80-94); MONOCYTES # (AUTO) 0.3 K/uL (0.8-1.0); MONOCYTES % (AUTO) 7.9 % (1.7-9.3); NEUTROPHILS # (AUTO) 2.4 K/uL (1.8-7.7); NEUTROPHILS % (AUTO) 61.6 % (42.2-75.2); PLATELET COUNT (AUTO) 134 K/uL (140-450); RED BLOOD CELL COUNT(AUTO) 2.76 MIL/uL (4.20-6.10); RED CELL DISTRIBUTION WIDTH 17.5 % (11.6-13.7); WHITE BLOOD COUNT (AUTO) 3.9 K/uL (4.8-10.8)
[2024-02-27 07:23] LABS: ANION GAP 19.2 (8-16); CALCIUM 8.4 mg/dL (8.5-10.1); CARBON DIOXIDE 25.1 mmol/L (21-32); POTASSIUM 5.3 mmol/L (3.5-5.1)
[2024-02-28 01:50] VITALS: O2SAT 99
[2024-02-28 07:22] LABS: BASOPHILS % (AUTO) 0.4 % (0.0-2.0); EOSINOPHILS # (AUTO) 0.3 K/uL (0-0.4); EOSINOPHILS % (AUTO) 8.3 % (0.0-4.0); HEMATOCRIT 23.2 % (36-52); HEMOGLOBIN 7.7 g/dL (12.0-18.0); LYMPHOCYTES # (AUTO) 0.8 K/uL (2.0-11.5); LYMPHOCYTES % (AUTO) 20.8 % (20.5-51.1); MEAN CORPUSCULAR HEMOGLOBIN 28 pg (27-31); MEAN CORPUSCULAR HGB CONC 33 g/dL (33-37); MEAN CORPUSCULAR VOLUME 83.7 fL (80-94); MONOCYTES # (AUTO) 0.4 K/uL (0.8-1.0); MONOCYTES % (AUTO) 10.9 % (1.7-9.3); NEUTROPHILS # (AUTO) 2.4 K/uL (1.8-7.7); NEUTROPHILS % (AUTO) 59.6 % (42.2-75.2); PLATELET COUNT (AUTO) 135 K/uL (140-450); RED BLOOD CELL COUNT(AUTO) 2.78 MIL/uL (4.20-6.10); RED CELL DISTRIBUTION WIDTH 17.2 % (11.6-13.7); WHITE BLOOD COUNT (AUTO) 3.9 K/uL (4.8-10.8)
[2024-02-28 07:32] LABS: ANION GAP 17.5 (8-16); CALCIUM 8.5 mg/dL (8.5-10.1); CARBON DIOXIDE 25.2 mmol/L (21-32); POTASSIUM 5.7 mmol/L (3.5-5.1)
[2024-02-28 07:52] LABS: CREATININE 10.5 mg/dL (0.6-1.3)
[2024-02-28 07:54] VITALS: O2SAT 98
[2024-02-28 08:00] VITALS: BP 147/67; PULSE 81; RESP 19; TEMP 97.3; O2SAT 96
[2024-02-28] MEDS: SODIUM ZIRCONIUM CYCLOSILICATE 10 GM POWD.PACK PO SCH (11:30)
[2024-02-28 16:00] VITALS: BP 156/84; PULSE 78; RESP 19; TEMP 97.8; O2SAT 96
[2024-02-28 19:50] VITALS: O2SAT 97
[2024-02-28 20:42] VITALS: PULSE 81; RESP 19; TEMP 98.2; O2SAT 96
[2024-02-29] VITALS: BP 196/76; PULSE 83; RESP 18; TEMP 98.2; O2SAT 96
[2024-02-29 04:00] VITALS: BP 139/64; PULSE 82; RESP 18; TEMP 98.1; O2SAT 100
[2024-02-29 07:12] LABS: BASOPHILS % (AUTO) 0.7 % (0.0-2.0); EOSINOPHILS # (AUTO) 0.3 K/uL (0-0.4); EOSINOPHILS % (AUTO) 8.6 % (0.0-4.0); HEMOGLOBIN 7.3 g/dL (12.0-18.0); LYMPHOCYTES # (AUTO) 0.9 K/uL (2.0-11.5); LYMPHOCYTES % (AUTO) 25.5 % (20.5-51.1); MEAN CORPUSCULAR HEMOGLOBIN 27 pg (27-31); MEAN CORPUSCULAR HGB CONC 33 g/dL (33-37); MONOCYTES # (AUTO) 0.4 K/uL (0.8-1.0); MONOCYTES % (AUTO) 11.3 % (1.7-9.3); NEUTROPHILS # (AUTO) 1.8 K/uL (1.8-7.7); NEUTROPHILS % (AUTO) 53.9 % (42.2-75.2); PLATELET COUNT (AUTO) 121 K/uL (140-450); RED BLOOD CELL COUNT(AUTO) 2.65 MIL/uL (4.20-6.10); RED CELL DISTRIBUTION WIDTH 17.5 % (11.6-13.7); WHITE BLOOD COUNT (AUTO) 3.3 K/uL (4.8-10.8)
[2024-02-29 07:24] VITALS: O2SAT 100
[2024-02-29 07:27] LABS: ANION GAP 17.9 (8-16); CALCIUM 8.4 mg/dL (8.5-10.1); CARBON DIOXIDE 25.4 mmol/L (21-32); POTASSIUM 5.3 mmol/L (3.5-5.1)
[2024-02-29 08:00] VITALS: PULSE 78; RESP 19; TEMP 98.8; O2SAT 94
[2024-02-29] MEDS: SODIUM ZIRCONIUM CYCLOSILICATE 10 GM POWD.PACK PO SCH (10:01)
[2024-02-29 16:00] VITALS: BP 148/82; PULSE 80; RESP 20; TEMP 98; O2SAT 97
[2024-02-29 20:00] VITALS: BP 138/79; PULSE 78; PULSE 83; RESP 18; RESP 19; TEMP 98.4; O2SAT 96
[2024-03-01 06:00] VITALS: O2SAT 96
[2024-03-01 07:05] LABS: BASOPHILS % (AUTO) 0.7 % (0.0-2.0); EOSINOPHILS # (AUTO) 0.2 K/uL (0-0.4); EOSINOPHILS % (AUTO) 7.1 % (0.0-4.0); LYMPHOCYTES # (AUTO) 0.9 K/uL (2.0-11.5); LYMPHOCYTES % (AUTO) 24.8 % (20.5-51.1); MEAN CORPUSCULAR HEMOGLOBIN 28 pg (27-31); MEAN CORPUSCULAR HGB CONC 34 g/dL (33-37); MEAN CORPUSCULAR VOLUME 82.9 fL (80-94); MONOCYTES # (AUTO) 0.5 K/uL (0.8-1.0); MONOCYTES % (AUTO) 13.5 % (1.7-9.3); NEUTROPHILS # (AUTO) 1.9 K/uL (1.8-7.7); NEUTROPHILS % (AUTO) 53.9 % (42.2-75.2); PLATELET COUNT (AUTO) 104 K/uL (140-450); RED BLOOD CELL COUNT(AUTO) 2.54 MIL/uL (4.20-6.10); RED CELL DISTRIBUTION WIDTH 17.6 % (11.6-13.7); WHITE BLOOD COUNT (AUTO) 3.4 K/uL (4.8-10.8)
[2024-03-01 07:15] LABS: ANION GAP 16.2 (8-16); CALCIUM 8.8 mg/dL (8.5-10.1); CARBON DIOXIDE 27.8 mmol/L (21-32)
[2024-03-01 07:17] LABS: CREATININE 9.4 mg/dL (0.6-1.3)
[2024-03-01 08:00] VITALS: BP 169/98; PULSE 82; RESP 18; RESP 19; TEMP 98.1; O2SAT 100; O2SAT 96
[2024-03-01 11:10] VITALS: BP 156/78; PULSE 82; RESP 18; TEMP 98.1
[2024-03-01 16:00] VITALS: BP 189/80; PULSE 80; RESP 18; TEMP 97.1; O2SAT 98
[2024-03-01] MEDS ORDERED: hydrALAZINE 20 MG/ML VIAL IVP PRN (16:55)
[2024-03-01 20:00] VITALS: BP 177/89; PULSE 80; PULSE 81; RESP 19; RESP 20; RESP 21; TEMP 97.9; TEMP 98.2; O2SAT 97
[2024-03-01 20:08] VITALS: PULSE 98; RESP 18; O2SAT 98
[2024-03-02 04:00] VITALS: BP 166/74; PULSE 81; RESP 20; TEMP 98.4; O2SAT 97
[2024-03-02 07:08] LABS: BASOPHILS % (AUTO) 0.5 % (0.0-2.0); EOSINOPHILS # (AUTO) 0.3 K/uL (0-0.4); EOSINOPHILS % (AUTO) 7.4 % (0.0-4.0); HEMATOCRIT 24.3 % (36-52); HEMOGLOBIN 8.2 g/dL (12.0-18.0); LYMPHOCYTES # (AUTO) 0.9 K/uL (2.0-11.5); LYMPHOCYTES % (AUTO) 22.8 % (20.5-51.1); MEAN CORPUSCULAR HEMOGLOBIN 28 pg (27-31); MEAN CORPUSCULAR HGB CONC 34 g/dL (33-37); MEAN CORPUSCULAR VOLUME 82.7 fL (80-94); MONOCYTES # (AUTO) 0.4 K/uL (0.8-1.0); MONOCYTES % (AUTO) 10.3 % (1.7-9.3); NEUTROPHILS # (AUTO) 2.3 K/uL (1.8-7.7); PLATELET COUNT (AUTO) 115 K/uL (140-450); RED BLOOD CELL COUNT(AUTO) 2.94 MIL/uL (4.20-6.10); RED CELL DISTRIBUTION WIDTH 17.1 % (11.6-13.7); WHITE BLOOD COUNT (AUTO) 3.9 K/uL (4.8-10.8)
[2024-03-02 07:33] VITALS: O2SAT 96
[2024-03-02 08:00] VITALS: BP 168/83; PULSE 83; RESP 16; TEMP 98; O2SAT 100
[2024-03-02 11:35] LABS: ALBUMIN 3.7 g/dL (3.4-5.0); ANION GAP 18.3 (8-16); CALCIUM 9.5 mg/dL (8.5-10.1); CARBON DIOXIDE 25.8 mmol/L (21-32); TOTAL BILIRUBIN 0.4 mg/dL (0.0-1.0); TOTAL PROTEIN, SERUM 7.9 g/dL (6.4-8.2)
[2024-03-02 11:42] LABS: CREATININE 11.3 mg/dL (0.6-1.3); POTASSIUM 6.1 mmol/L (3.5-5.1)
[2024-03-02] MEDS: SEVELAMER CARBONATE 800 MG TAB PO SCH (13:00)
[2024-03-02] MEDS: SODIUM ZIRCONIUM CYCLOSILICATE 10 GM POWD.PACK PO ONE (13:00)
[2024-03-02 15:59] LABS: BASOPHILS % (AUTO) 1.1 % (0.0-2.0); EOSINOPHILS # (AUTO) 0.3 K/uL (0-0.4); EOSINOPHILS % (AUTO) 8.6 % (0.0-4.0); HEMATOCRIT 22.4 % (36-52); LYMPHOCYTES # (AUTO) 0.6 K/uL (2.0-11.5); LYMPHOCYTES % (AUTO) 20.7 % (20.5-51.1); MEAN CORPUSCULAR HEMOGLOBIN 28 pg (27-31); MEAN CORPUSCULAR HGB CONC 33 g/dL (33-37); MONOCYTES # (AUTO) 0.3 K/uL (0.8-1.0); MONOCYTES % (AUTO) 9.3 % (1.7-9.3); NEUTROPHILS # (AUTO) 1.8 K/uL (1.8-7.7); NEUTROPHILS % (AUTO) 60.3 % (42.2-75.2); PLATELET COUNT (AUTO) 90 K/uL (140-450); RED BLOOD CELL COUNT(AUTO) 2.69 MIL/uL (4.20-6.10); RED CELL DISTRIBUTION WIDTH 17.1 % (11.6-13.7)
[2024-03-02 16:00] VITALS: BP 160/78; PULSE 80; RESP 18; TEMP 97.9; O2SAT 98
[2024-03-02 16:06] LABS: ANION GAP 13.9 (8-16); CALCIUM 9.1 mg/dL (8.5-10.1); CARBON DIOXIDE 28.6 mmol/L (21-32); POTASSIUM 4.5 mmol/L (3.5-5.1)
[2024-03-02 16:08] LABS: HEMOGLOBIN 7.5 g/dL (12.0-18.0)
[2024-03-02] MEDS ORDERED: hydrALAZINE 20 MG/ML VIAL IVP ONE (18:05)
[2024-03-02] MEDS: hydrALAZINE 20 MG/ML VIAL IVP ONE (18:08)
[2024-03-02 18:45] VITALS: BP 145/87
[2024-03-02 19:35] VITALS: PULSE 96; RESP 19; O2SAT 96
== END 2024-03-02 18:30 | disposition home or self-care (01) | DRG 425 ==
LOC: MED 05:59 → MTU 09:30
PROVIDERS: ADMIT Family Medicine; ATTEND Family Medicine
PROC: 5A09357 Assistance with Respiratory Ventilation, Less than 24 Consecutive Hours, Continuous Positive Airway Pressure (ICD-10-PCS; 2024-02-24)
PROC: 5A1D70Z Performance of Urinary Filtration, Intermittent, Less than 6 Hours Per Day (ICD-10-PCS; 2024-02-24)
PROC: 30233N1 Transfusion of Nonautologous Red Blood Cells into Peripheral Vein, Percutaneous Approach (ICD-10-PCS; principal; 2024-02-25)
PROC: 5A1D70Z Performance of Urinary Filtration, Intermittent, Less than 6 Hours Per Day (ICD-10-PCS; 2024-02-25)
PROC: 5A09357 Assistance with Respiratory Ventilation, Less than 24 Consecutive Hours, Continuous Positive Airway Pressure (ICD-10-PCS; 2024-02-25)
PROC: 5A1D70Z Performance of Urinary Filtration, Intermittent, Less than 6 Hours Per Day (ICD-10-PCS; 2024-02-27)
PROC: 5A1D70Z Performance of Urinary Filtration, Intermittent, Less than 6 Hours Per Day (ICD-10-PCS; 2024-02-28)
PROC: 5A1D70Z Performance of Urinary Filtration, Intermittent, Less than 6 Hours Per Day (ICD-10-PCS; 2024-02-29)
PROC: 5A1D70Z Performance of Urinary Filtration, Intermittent, Less than 6 Hours Per Day (ICD-10-PCS; 2024-03-02)
DX: E87.70 Fluid overload, unspecified (principal); J96.01 Acute respiratory failure with hypoxia; I12.0 Hypertensive chronic kidney disease with stage 5 chronic kidney disease or end stage renal disease; D63.8 Anemia in other chronic diseases classified elsewhere; N18.6 End stage renal disease; E87.5 Hyperkalemia; F15.10 Other stimulant abuse, uncomplicated; Z79.899 Other long term (current) drug therapy; Z99.2 Dependence on renal dialysis
CPT/HCPCS: 36415; 71045; 80048; 80053; 80076; 80305; 81001; 82272; 82550; 83605; 83735; 83880; 84100; 84484; 85025; 85610; 85730; 86886; 86900; 86901; 86920; 87040; 87081; 90935; 93005; 94640; 94660; 97163-GP; 97530; 99291; J0360; J1644; J3490; P9016; Q5106

== ENCOUNTER 2024-04-25 18:20 | Inpatient (IN) | payer MEDICAID ==
[~2024-04-25] VITALS: Ht 188 cm; Wt 99.0 kg
[~2024-04-25 18:20] MED LIST changes: -ASPI81CT95 PO; -ATEN25TA2 PO; -Foam Dressing TP; -OXYC-304 PO; -PIPE50SO5 IV; -QUET100T44 PO; -RENAL DOSING PER PHARMACY MC; -VANC1VIA34 MC; -[UNRECOGNIZED DRUG - REMARK] TP
[2024-04-25 18:30] VITALS: BP 152/77; PULSE 71; RESP 18; TEMP 98.1; O2SAT 93
[2024-04-25 20:35] LABS: BASOPHILS % (AUTO) 0.5 % (0.0-2.0); EOSINOPHILS # (AUTO) 0.2 K/uL (0-0.4); EOSINOPHILS % (AUTO) 5.7 % (0.0-4.0); HEMATOCRIT 22.4 % (36-52); HEMOGLOBIN 7.2 g/dL (12.0-18.0); LYMPHOCYTES # (AUTO) 0.8 K/uL (2.0-11.5); LYMPHOCYTES % (AUTO) 23.3 % (20.5-51.1); MEAN CORPUSCULAR HEMOGLOBIN 26 pg (27-31); MEAN CORPUSCULAR HGB CONC 32 g/dL (33-37); MEAN CORPUSCULAR VOLUME 82.3 fL (80-94); MONOCYTES # (AUTO) 0.3 K/uL (0.8-1.0); MONOCYTES % (AUTO) 7.8 % (1.7-9.3); NEUTROPHILS # (AUTO) 2.1 K/uL (1.8-7.7); NEUTROPHILS % (AUTO) 62.7 % (42.2-75.2); PLATELET COUNT (AUTO) 142 K/uL (140-450); RED BLOOD CELL COUNT(AUTO) 2.72 MIL/uL (4.20-6.10); RED CELL DISTRIBUTION WIDTH 16.8 % (11.6-13.7); WHITE BLOOD COUNT (AUTO) 3.4 K/uL (4.8-10.8)
[2024-04-25 21:36] LABS: POTASSIUM 5.6 mmol/L (3.5-5.1)
[2024-04-25 21:37] LABS: ANION GAP 19.4 (8-16); CALCIUM 7.9 mg/dL (8.5-10.1); CARBON DIOXIDE 25.2 mmol/L (21-32)
[2024-04-25 21:39] LABS: CREATININE 15.4 mg/dL (0.6-1.3)
[2024-04-25 21:40] LABS: PROTHROMBIN TIME 11.4 secs (10.8-13.4)
[2024-04-25 21:41] LABS: INR 1.1 (0.8-1.2)
[2024-04-25] MEDS ORDERED: ONDANSETRON 4 MG/2 ML VIAL IM/IVP PRN (22:45)
[2024-04-25] MEDS ORDERED: POTASSIUM CHLORIDE 10 MEQ TABER PO PRN (22:45)
[2024-04-25] MEDS ORDERED: SODIUM ZIRCONIUM CYCLOSILICATE 10 GM POWD.PACK PO SCH (22:45)
[2024-04-25] MEDS: SODIUM ZIRCONIUM CYCLOSILICATE 10 GM POWD.PACK PO SCH (23:27)
[2024-04-26] VITALS (9 sets, daily range): BP systolic 158–188; BP diastolic 63–92; PULSE 2–73; RESP 18–20; TEMP 97.1–98; O2SAT 93–100
[2024-04-26] MEDS: NIFEdipine 60 MG TABER PO ONE (00:55)
[2024-04-26] MEDS: hydrALAZINE 10 MG TAB PO PRN (04:36)
[2024-04-26 07:01] LABS: BASOPHILS % (AUTO) 0.9 % (0.0-2.0); EOSINOPHILS # (AUTO) 0.2 K/uL (0-0.4); EOSINOPHILS % (AUTO) 5.8 % (0.0-4.0); HEMATOCRIT 22.8 % (36-52); HEMOGLOBIN 7.3 g/dL (12.0-18.0); LYMPHOCYTES # (AUTO) 0.8 K/uL (2.0-11.5); LYMPHOCYTES % (AUTO) 20.5 % (20.5-51.1); MEAN CORPUSCULAR HEMOGLOBIN 26 pg (27-31); MEAN CORPUSCULAR HGB CONC 32 g/dL (33-37); MEAN CORPUSCULAR VOLUME 82.7 fL (80-94); MONOCYTES # (AUTO) 0.3 K/uL (0.8-1.0); MONOCYTES % (AUTO) 8.2 % (1.7-9.3); NEUTROPHILS # (AUTO) 2.4 K/uL (1.8-7.7); NEUTROPHILS % (AUTO) 64.6 % (42.2-75.2); PLATELET COUNT (AUTO) 130 K/uL (140-450); RED BLOOD CELL COUNT(AUTO) 2.76 MIL/uL (4.20-6.10); RED CELL DISTRIBUTION WIDTH 16.8 % (11.6-13.7); WHITE BLOOD COUNT (AUTO) 3.7 K/uL (4.8-10.8)
[2024-04-26 07:04] LABS: ALBUMIN 3.5 g/dL (3.4-5.0); ANION GAP 21.6 (8-16); CALCIUM 7.7 mg/dL (8.5-10.1); CARBON DIOXIDE 25.1 mmol/L (21-32); POTASSIUM 5.7 mmol/L (3.5-5.1); TOTAL BILIRUBIN 0.3 mg/dL (0.0-1.0); TOTAL PROTEIN, SERUM 7.9 g/dL (6.4-8.2)
[2024-04-26 07:33] LABS: CREATININE 16.4 mg/dL (0.6-1.3)
[2024-04-26] MEDS: APIXABAN 2.5 MG TAB PO SCH (09:00)
[2024-04-26] MEDS: PANTOPRAZOLE 40 MG TABEC PO SCH (09:29)
[2024-04-26] MEDS: VIT-B COMP/VIT-C/FOLIC ACID 1 TAB PO SCH (09:30)
[2024-04-26] MEDS: ATORVASTATIN 20 MG TAB PO SCH (09:30)
[2024-04-26] MEDS: NIFEdipine 60 MG TABER PO SCH (09:32)
[2024-04-26] MEDS: SODIUM ZIRCONIUM CYCLOSILICATE 10 GM POWD.PACK PO SCH (10:18)
[2024-04-26] MEDS: hydrALAZINE 10 MG TAB PO SCH (16:08)
[2024-04-26] MEDS: BLOOD GLUCOSE MONITORING 1 DEV DEV FS SCH (17:04)
[2024-04-26] MEDS: MIDAZOLAM 5 MG/5 ML VIAL ONE (20:01)
[2024-04-26] MEDS: fentaNYL citrate 0.05 MG/ML VIAL ONE (20:01)
[2024-04-26] MEDS: LIDOCAINE 2% 1000 MG/50 ML VIAL INJ ONE (20:02)
[2024-04-26] MEDS: LIDOCAINE/EPI 1% 1:100000 20 ML VIAL INJ ONE (22:09)
[2024-04-26] MEDS: LIDOCAINE MPF 1% 0 ML ONE (22:09)
[2024-04-27] VITALS (8 sets, daily range): BP systolic 135–160; BP diastolic 65–121; PULSE 2–74; RESP 18–20; TEMP 95–97.8; O2SAT 92–99
[2024-04-27] MEDS: SODIUM ZIRCONIUM CYCLOSILICATE 10 GM POWD.PACK PO SCH ×3 (00:56→09:55)
[2024-04-27] MEDS: ZOLPIDEM 5 MG TAB PO PRN (01:00)
[2024-04-27] MEDS: HYDROcodone/APAP 7.5/325 MG 1 TAB PO PRN (04:08)
[2024-04-27 06:59] LABS: BASOPHILS % (AUTO) 0.8 % (0.0-2.0); EOSINOPHILS # (AUTO) 0.2 K/uL (0-0.4); HEMATOCRIT 22.8 % (36-52); HEMOGLOBIN 7.3 g/dL (12.0-18.0); LYMPHOCYTES # (AUTO) 0.7 K/uL (2.0-11.5); LYMPHOCYTES % (AUTO) 17.9 % (20.5-51.1); MEAN CORPUSCULAR HEMOGLOBIN 27 pg (27-31); MEAN CORPUSCULAR HGB CONC 32 g/dL (33-37); MONOCYTES # (AUTO) 0.3 K/uL (0.8-1.0); MONOCYTES % (AUTO) 6.7 % (1.7-9.3); NEUTROPHILS # (AUTO) 2.7 K/uL (1.8-7.7); NEUTROPHILS % (AUTO) 69.6 % (42.2-75.2); PLATELET COUNT (AUTO) 129 K/uL (140-450); RED BLOOD CELL COUNT(AUTO) 2.75 MIL/uL (4.20-6.10); RED CELL DISTRIBUTION WIDTH 17.2 % (11.6-13.7); WHITE BLOOD COUNT (AUTO) 3.9 K/uL (4.8-10.8)
[2024-04-27 07:28] LABS: ALBUMIN 3.6 g/dL (3.4-5.0); ANION GAP 24.7 (8-16); CALCIUM 7.5 mg/dL (8.5-10.1); CARBON DIOXIDE 22.5 mmol/L (21-32); TOTAL BILIRUBIN 0.4 mg/dL (0.0-1.0); TOTAL PROTEIN, SERUM 8.1 g/dL (6.4-8.2)
[2024-04-27 07:30] LABS: CREATININE 17.2 mg/dL (0.6-1.3); POTASSIUM 7.2 mmol/L (3.5-5.1)
[2024-04-27] MEDS: INSULIN REGULAR, HUMAN 100 UNIT/ML VIAL IVP SCH (08:55)
[2024-04-27] MEDS: fentaNYL citrate 0.05 MG/ML VIAL IVP SCH (13:15)
[2024-04-27] MEDS: MIDAZOLAM 2 MG/2 ML VIAL IV SCH (13:15)
[2024-04-27] MEDS: DEXTROSE 50% 50 ML SYR IVP SCH (14:05)
[2024-04-27] MEDS: POLYETHYLENE GLYCOL 17 GM/PKT PO SCH (14:05)
[2024-04-27] MEDS: DEXTROSE 50% 50 ML SYR IVP PRN (21:27)
[2024-04-27] MEDS ORDERED: DEXTROSE 50% 50 ML SYR IVP SCH (21:55)
[2024-04-28] VITALS (9 sets, daily range): BP systolic 158–190; BP diastolic 70–99; PULSE 2–76; RESP 18–20; TEMP 96.7–100.3; O2SAT 89–97
[2024-04-28 07:15] LABS: BASOPHILS % (AUTO) 0.4 % (0.0-2.0); EOSINOPHILS # (AUTO) 0.2 K/uL (0-0.4); EOSINOPHILS % (AUTO) 4.7 % (0.0-4.0); HEMATOCRIT 21.2 % (36-52); LYMPHOCYTES # (AUTO) 0.5 K/uL (2.0-11.5); LYMPHOCYTES % (AUTO) 16.9 % (20.5-51.1); MEAN CORPUSCULAR HEMOGLOBIN 27 pg (27-31); MEAN CORPUSCULAR HGB CONC 33 g/dL (33-37); MEAN CORPUSCULAR VOLUME 81.4 fL (80-94); MONOCYTES # (AUTO) 0.2 K/uL (0.8-1.0); NEUTROPHILS # (AUTO) 2.3 K/uL (1.8-7.7); PLATELET COUNT (AUTO) 101 K/uL (140-450); RED CELL DISTRIBUTION WIDTH 17.3 % (11.6-13.7); WHITE BLOOD COUNT (AUTO) 3.2 K/uL (4.8-10.8)
[2024-04-28 07:32] LABS: HEMOGLOBIN 6.9 g/dL (12.0-18.0)
[2024-04-28 07:48] LABS: ALBUMIN 3.3 g/dL (3.4-5.0); ANION GAP 19.9 (8-16); CALCIUM 7.7 mg/dL (8.5-10.1); CARBON DIOXIDE 24.1 mmol/L (21-32); TOTAL BILIRUBIN 0.4 mg/dL (0.0-1.0); TOTAL PROTEIN, SERUM 7.6 g/dL (6.4-8.2)
[2024-04-28 07:54] LABS: CREATININE 13.2 mg/dL (0.6-1.3)
[2024-04-28] MEDS: hydrALAZINE 20 MG/ML VIAL IVP PRN (11:49)
[2024-04-28] MEDS: DEXTROSE 50% 50 ML SYR IVP ONE (11:50)
[2024-04-28] MEDS: INSULIN REGULAR, HUMAN 100 UNIT/ML VIAL IVP ONE (12:00)
[2024-04-29] VITALS (8 sets, daily range): BP systolic 135–192; BP diastolic 66–95; PULSE 68–78; RESP 17–19; TEMP 96.8–98.6; O2SAT 93–100
[2024-04-29 06:43] LABS: BASOPHILS % (AUTO) 0.8 % (0.0-2.0); EOSINOPHILS # (AUTO) 0.2 K/uL (0-0.4); EOSINOPHILS % (AUTO) 4.3 % (0.0-4.0); HEMATOCRIT 23.2 % (36-52); HEMOGLOBIN 7.6 g/dL (12.0-18.0); LYMPHOCYTES # (AUTO) 0.8 K/uL (2.0-11.5); LYMPHOCYTES % (AUTO) 19.1 % (20.5-51.1); MEAN CORPUSCULAR HEMOGLOBIN 27 pg (27-31); MEAN CORPUSCULAR HGB CONC 33 g/dL (33-37); MEAN CORPUSCULAR VOLUME 81.7 fL (80-94); MONOCYTES # (AUTO) 0.4 K/uL (0.8-1.0); MONOCYTES % (AUTO) 8.8 % (1.7-9.3); NEUTROPHILS # (AUTO) 2.7 K/uL (1.8-7.7); RED BLOOD CELL COUNT(AUTO) 2.84 MIL/uL (4.20-6.10); RED CELL DISTRIBUTION WIDTH 17.1 % (11.6-13.7)
[2024-04-29 08:31] LABS: ALBUMIN 3.3 g/dL (3.4-5.0); ANION GAP 21.3 (8-16); CALCIUM 8.8 mg/dL (8.5-10.1); POTASSIUM 5.3 mmol/L (3.5-5.1); TOTAL BILIRUBIN 0.5 mg/dL (0.0-1.0); TOTAL PROTEIN, SERUM 7.7 g/dL (6.4-8.2)
[2024-04-29 08:37] LABS: CREATININE 12.5 mg/dL (0.6-1.3)
[2024-04-29] MEDS: CLONIDINE HYDROCHLORIDE 0.1 MG TAB PO PRN (10:11)
[2024-04-29] MEDS: SODIUM ZIRCONIUM CYCLOSILICATE 10 GM POWD.PACK PO SCH (10:40)
[2024-04-29 15:11] LABS: INR 1.01 (0.8-1.2); PARTIAL THROMBOPLASTIN TIME 25.4 secs (22-35.6); PROTHROMBIN TIME 10.6 secs (10.8-13.4)
[2024-04-29] MEDS: INSULIN LISPRO SLIDING SCALE 100 UNITS/ML VIAL SUBQ PRN (22:40)
[2024-04-30] VITALS (9 sets, daily range): BP systolic 157–199; BP diastolic 83–101; PULSE 66–77; RESP 18; TEMP 96.9–98.7; O2SAT 93–99
[2024-04-30 07:10] LABS: BASOPHILS % (AUTO) 0.8 % (0.0-2.0); EOSINOPHILS # (AUTO) 0.2 K/uL (0-0.4); EOSINOPHILS % (AUTO) 5.2 % (0.0-4.0); HEMATOCRIT 22.7 % (36-52); HEMOGLOBIN 7.4 g/dL (12.0-18.0); LYMPHOCYTES # (AUTO) 0.7 K/uL (2.0-11.5); LYMPHOCYTES % (AUTO) 20.7 % (20.5-51.1); MEAN CORPUSCULAR HEMOGLOBIN 27 pg (27-31); MEAN CORPUSCULAR HGB CONC 33 g/dL (33-37); MONOCYTES # (AUTO) 0.4 K/uL (0.8-1.0); MONOCYTES % (AUTO) 10.7 % (1.7-9.3); NEUTROPHILS # (AUTO) 2.2 K/uL (1.8-7.7); NEUTROPHILS % (AUTO) 62.6 % (42.2-75.2); PLATELET COUNT (AUTO) 89 K/uL (140-450); RED BLOOD CELL COUNT(AUTO) 2.77 MIL/uL (4.20-6.10); RED CELL DISTRIBUTION WIDTH 16.7 % (11.6-13.7); WHITE BLOOD COUNT (AUTO) 3.5 K/uL (4.8-10.8)
[2024-04-30 07:41] LABS: ALBUMIN 3.3 g/dL (3.4-5.0); ANION GAP 20.4 (8-16); CALCIUM 9.2 mg/dL (8.5-10.1); CARBON DIOXIDE 24.9 mmol/L (21-32); POTASSIUM 5.3 mmol/L (3.5-5.1); TOTAL BILIRUBIN 0.4 mg/dL (0.0-1.0); TOTAL PROTEIN, SERUM 7.6 g/dL (6.4-8.2)
[2024-04-30 07:49] LABS: CREATININE 14.2 mg/dL (0.6-1.3)
[2024-04-30] MEDS: ACETAMINOPHEN 325 MG TAB PO PRN (09:50)
[2024-04-30] MEDS: DOCUSATE SODIUM 100 MG GELCAP PO PRN (23:14)
[2024-05-01 01:58] VITALS: O2SAT 96
[2024-05-01 04:00] VITALS: BP 182/100; PULSE 74; RESP 18; TEMP 97.8; O2SAT 93
[2024-05-01 07:10] LABS: BASOPHILS % (AUTO) 0.7 % (0.0-2.0); EOSINOPHILS # (AUTO) 0.2 K/uL (0-0.4); EOSINOPHILS % (AUTO) 5.4 % (0.0-4.0); HEMATOCRIT 23.1 % (36-52); HEMOGLOBIN 7.5 g/dL (12.0-18.0); LYMPHOCYTES # (AUTO) 0.7 K/uL (2.0-11.5); LYMPHOCYTES % (AUTO) 21.4 % (20.5-51.1); MEAN CORPUSCULAR HEMOGLOBIN 27 pg (27-31); MEAN CORPUSCULAR HGB CONC 32 g/dL (33-37); MONOCYTES # (AUTO) 0.4 K/uL (0.8-1.0); NEUTROPHILS # (AUTO) 2.1 K/uL (1.8-7.7); NEUTROPHILS % (AUTO) 61.5 % (42.2-75.2); PLATELET COUNT (AUTO) 79 K/uL (140-450); RED BLOOD CELL COUNT(AUTO) 2.82 MIL/uL (4.20-6.10); WHITE BLOOD COUNT (AUTO) 3.4 K/uL (4.8-10.8)
[2024-05-01 07:17] LABS: ALBUMIN 3.3 g/dL (3.4-5.0); ANION GAP 19.9 (8-16); CALCIUM 9.1 mg/dL (8.5-10.1); POTASSIUM 5.9 mmol/L (3.5-5.1); TOTAL BILIRUBIN 0.3 mg/dL (0.0-1.0); TOTAL PROTEIN, SERUM 7.7 g/dL (6.4-8.2)
[2024-05-01 07:36] LABS: CREATININE 12.7 mg/dL (0.6-1.3)
[2024-05-01 08:00] VITALS: BP 194/92; PULSE 69; RESP 20; TEMP 97.8; O2SAT 96
[2024-05-01 10:25] VITALS: O2SAT 98
[2024-05-01 16:00] VITALS: BP 122/83; PULSE 66; RESP 20; TEMP 98.5; O2SAT 96
[2024-05-01 20:00] VITALS: BP 154/80; PULSE 63; RESP 18; TEMP 97.8; O2SAT 98
[2024-05-02] VITALS (8 sets, daily range): BP systolic 128–171; BP diastolic 59–88; PULSE 54–96; RESP 18–20; TEMP 97.6–98.1; O2SAT 95–100
[2024-05-02 06:42] LABS: BASOPHILS % (AUTO) 0.6 % (0.0-2.0); EOSINOPHILS # (AUTO) 0.2 K/uL (0-0.4); EOSINOPHILS % (AUTO) 6.1 % (0.0-4.0); HEMATOCRIT 22.7 % (36-52); HEMOGLOBIN 7.3 g/dL (12.0-18.0); LYMPHOCYTES # (AUTO) 0.9 K/uL (2.0-11.5); MEAN CORPUSCULAR HEMOGLOBIN 26 pg (27-31); MEAN CORPUSCULAR HGB CONC 32 g/dL (33-37); MEAN CORPUSCULAR VOLUME 81.5 fL (80-94); MONOCYTES # (AUTO) 0.6 K/uL (0.8-1.0); MONOCYTES % (AUTO) 14.1 % (1.7-9.3); NEUTROPHILS # (AUTO) 2.3 K/uL (1.8-7.7); NEUTROPHILS % (AUTO) 57.2 % (42.2-75.2); PLATELET COUNT (AUTO) 89 K/uL (140-450); RED BLOOD CELL COUNT(AUTO) 2.79 MIL/uL (4.20-6.10); RED CELL DISTRIBUTION WIDTH 16.7 % (11.6-13.7)
[2024-05-02 07:11] LABS: ALBUMIN 3.3 g/dL (3.4-5.0); ANION GAP 22.5 (8-16); CALCIUM 8.5 mg/dL (8.5-10.1); CARBON DIOXIDE 22.8 mmol/L (21-32); TOTAL BILIRUBIN 0.3 mg/dL (0.0-1.0); TOTAL PROTEIN, SERUM 7.6 g/dL (6.4-8.2)
[2024-05-02 07:37] LABS: CREATININE 14.7 mg/dL (0.6-1.3)
[2024-05-02 07:40] LABS: POTASSIUM 6.3 mmol/L (3.5-5.1)
[2024-05-03] VITALS (9 sets, daily range): BP systolic 164–197; BP diastolic 80–95; PULSE 63–80; RESP 16–20; TEMP 97.7–99; O2SAT 96–100
[2024-05-03 07:11] LABS: ANION GAP 19.1 (8-16); CALCIUM 8.5 mg/dL (8.5-10.1); POTASSIUM 5.1 mmol/L (3.5-5.1)
[2024-05-03 07:13] LABS: BASOPHILS % (AUTO) 0.3 % (0.0-2.0); EOSINOPHILS # (AUTO) 0.1 K/uL (0-0.4); EOSINOPHILS % (AUTO) 3.4 % (0.0-4.0); HEMATOCRIT 21.3 % (36-52); HEMOGLOBIN 7.1 g/dL (12.0-18.0); LYMPHOCYTES # (AUTO) 0.8 K/uL (2.0-11.5); LYMPHOCYTES % (AUTO) 19.3 % (20.5-51.1); MEAN CORPUSCULAR HEMOGLOBIN 27 pg (27-31); MEAN CORPUSCULAR HGB CONC 33 g/dL (33-37); MEAN CORPUSCULAR VOLUME 80.8 fL (80-94); MONOCYTES # (AUTO) 0.4 K/uL (0.8-1.0); MONOCYTES % (AUTO) 11.3 % (1.7-9.3); NEUTROPHILS # (AUTO) 2.6 K/uL (1.8-7.7); NEUTROPHILS % (AUTO) 65.7 % (42.2-75.2); PLATELET COUNT (AUTO) 89 K/uL (140-450); RED BLOOD CELL COUNT(AUTO) 2.64 MIL/uL (4.20-6.10); RED CELL DISTRIBUTION WIDTH 16.3 % (11.6-13.7); WHITE BLOOD COUNT (AUTO) 3.9 K/uL (4.8-10.8)
[2024-05-03 07:19] LABS: CREATININE 12.4 mg/dL (0.6-1.3)
[2024-05-03] MEDS: HYDROcodone/APAP 7.5/325 MG 1 TAB PO PRN (14:50)
[2024-05-03] MEDS: LORazepam 1 MG TAB PO ONE (20:54)
[2024-05-04 04:00] VITALS: BP 156/72; PULSE 72; RESP 18; TEMP 98.2; O2SAT 98
[2024-05-04 08:00] VITALS: BP 186/98; PULSE 78; RESP 18; TEMP 98; O2SAT 100
[2024-05-04 08:17] VITALS: O2SAT 99
[2024-05-04 16:00] VITALS: BP 145/67; PULSE 72; RESP 18; TEMP 98.4; O2SAT 94
[2024-05-04 19:47] VITALS: O2SAT 100
[2024-05-04 20:00] VITALS: PULSE 76; RESP 18; TEMP 98.7; O2SAT 97
[2024-05-05] VITALS (8 sets, daily range): BP systolic 147–174; BP diastolic 65–84; PULSE 69–97; RESP 18–20; TEMP 97.9–99.3; O2SAT 96–99
[2024-05-05 07:13] LABS: BASOPHILS % (AUTO) 0.7 % (0.0-2.0); EOSINOPHILS # (AUTO) 0.2 K/uL (0-0.4); EOSINOPHILS % (AUTO) 4.6 % (0.0-4.0); HEMATOCRIT 22.2 % (36-52); HEMOGLOBIN 7.1 g/dL (12.0-18.0); LYMPHOCYTES # (AUTO) 0.7 K/uL (2.0-11.5); LYMPHOCYTES % (AUTO) 15.9 % (20.5-51.1); MEAN CORPUSCULAR HEMOGLOBIN 26 pg (27-31); MEAN CORPUSCULAR HGB CONC 32 g/dL (33-37); MEAN CORPUSCULAR VOLUME 81.5 fL (80-94); MONOCYTES # (AUTO) 0.4 K/uL (0.8-1.0); MONOCYTES % (AUTO) 9.7 % (1.7-9.3); NEUTROPHILS # (AUTO) 2.9 K/uL (1.8-7.7); NEUTROPHILS % (AUTO) 69.1 % (42.2-75.2); PLATELET COUNT (AUTO) 94 K/uL (140-450); RED BLOOD CELL COUNT(AUTO) 2.72 MIL/uL (4.20-6.10); RED CELL DISTRIBUTION WIDTH 16.8 % (11.6-13.7); WHITE BLOOD COUNT (AUTO) 4.1 K/uL (4.8-10.8)
[2024-05-05 07:19] LABS: ANION GAP 20.8 (8-16); CARBON DIOXIDE 23.3 mmol/L (21-32)
[2024-05-05 07:24] LABS: CREATININE 12.6 mg/dL (0.6-1.3); POTASSIUM 6.1 mmol/L (3.5-5.1)
[2024-05-06] VITALS (7 sets, daily range): BP systolic 117–170; BP diastolic 78–97; PULSE 80–83; RESP 18; TEMP 97–99.3; O2SAT 96–100
[2024-05-06 07:04] LABS: ANION GAP 20.6 (8-16); CALCIUM 9.2 mg/dL (8.5-10.1); CARBON DIOXIDE 22.7 mmol/L (21-32); POTASSIUM 5.3 mmol/L (3.5-5.1)
[2024-05-06 07:07] LABS: BASOPHILS % (AUTO) 0.8 % (0.0-2.0); EOSINOPHILS # (AUTO) 0.2 K/uL (0-0.4); EOSINOPHILS % (AUTO) 4.1 % (0.0-4.0); HEMATOCRIT 22.7 % (36-52); HEMOGLOBIN 7.4 g/dL (12.0-18.0); LYMPHOCYTES # (AUTO) 0.7 K/uL (2.0-11.5); LYMPHOCYTES % (AUTO) 18.1 % (20.5-51.1); MEAN CORPUSCULAR HEMOGLOBIN 27 pg (27-31); MEAN CORPUSCULAR HGB CONC 33 g/dL (33-37); MONOCYTES # (AUTO) 0.4 K/uL (0.8-1.0); MONOCYTES % (AUTO) 11.5 % (1.7-9.3); NEUTROPHILS # (AUTO) 2.5 K/uL (1.8-7.7); NEUTROPHILS % (AUTO) 65.5 % (42.2-75.2); PLATELET COUNT (AUTO) 100 K/uL (140-450); RED BLOOD CELL COUNT(AUTO) 2.73 MIL/uL (4.20-6.10); WHITE BLOOD COUNT (AUTO) 3.9 K/uL (4.8-10.8)
[2024-05-06 07:28] LABS: CREATININE 11.2 mg/dL (0.6-1.3)
[2024-05-06] MEDS: EPOETIN ALFA-EPBX 10,000 UNITS/ML VIAL IV SCH (15:35)
[2024-05-06] MEDS: SODIUM ZIRCONIUM CYCLOSILICATE 10 GM POWD.PACK PO SCH (15:35)
[2024-05-07] VITALS (8 sets, daily range): BP systolic 123–201; BP diastolic 66–100; PULSE 80–87; RESP 18–20; TEMP 97.6–98.5; O2SAT 97–98
[2024-05-07 06:48] LABS: BASOPHILS % (AUTO) 0.8 % (0.0-2.0); EOSINOPHILS # (AUTO) 0.2 K/uL (0-0.4); EOSINOPHILS % (AUTO) 3.8 % (0.0-4.0); HEMATOCRIT 22.7 % (36-52); HEMOGLOBIN 7.4 g/dL (12.0-18.0); LYMPHOCYTES # (AUTO) 0.7 K/uL (2.0-11.5); LYMPHOCYTES % (AUTO) 17.4 % (20.5-51.1); MEAN CORPUSCULAR HEMOGLOBIN 27 pg (27-31); MEAN CORPUSCULAR HGB CONC 33 g/dL (33-37); MEAN CORPUSCULAR VOLUME 81.9 fL (80-94); MONOCYTES # (AUTO) 0.5 K/uL (0.8-1.0); MONOCYTES % (AUTO) 11.3 % (1.7-9.3); NEUTROPHILS # (AUTO) 2.8 K/uL (1.8-7.7); NEUTROPHILS % (AUTO) 66.7 % (42.2-75.2); PLATELET COUNT (AUTO) 102 K/uL (140-450); RED BLOOD CELL COUNT(AUTO) 2.77 MIL/uL (4.20-6.10); RED CELL DISTRIBUTION WIDTH 16.6 % (11.6-13.7); WHITE BLOOD COUNT (AUTO) 4.3 K/uL (4.8-10.8)
[2024-05-07 07:31] LABS: ANION GAP 22.5 (8-16); CALCIUM 8.8 mg/dL (8.5-10.1); POTASSIUM 5.5 mmol/L (3.5-5.1)
[2024-05-07 07:38] LABS: CREATININE 13.5 mg/dL (0.6-1.3)
[2024-05-07] MEDS ORDERED: ALTEPLASE 100 MG VIAL IV ONE (09:55)
[2024-05-07] MEDS: ALTEPLASE 2 MG VIAL MC SCH (11:20)
[2024-05-08] VITALS: BP 172/83; PULSE 84; RESP 19; TEMP 98.5; O2SAT 97
[2024-05-08 07:03] LABS: BASOPHILS % (AUTO) 0.6 % (0.0-2.0); EOSINOPHILS # (AUTO) 0.1 K/uL (0-0.4); EOSINOPHILS % (AUTO) 3.7 % (0.0-4.0); HEMATOCRIT 21.5 % (36-52); HEMOGLOBIN 7.1 g/dL (12.0-18.0); LYMPHOCYTES # (AUTO) 0.7 K/uL (2.0-11.5); LYMPHOCYTES % (AUTO) 20.1 % (20.5-51.1); MEAN CORPUSCULAR HEMOGLOBIN 27 pg (27-31); MEAN CORPUSCULAR HGB CONC 33 g/dL (33-37); MEAN CORPUSCULAR VOLUME 81.4 fL (80-94); MONOCYTES # (AUTO) 0.5 K/uL (0.8-1.0); MONOCYTES % (AUTO) 14.5 % (1.7-9.3); NEUTROPHILS # (AUTO) 2.2 K/uL (1.8-7.7); NEUTROPHILS % (AUTO) 61.1 % (42.2-75.2); PLATELET COUNT (AUTO) 100 K/uL (140-450); RED BLOOD CELL COUNT(AUTO) 2.64 MIL/uL (4.20-6.10); RED CELL DISTRIBUTION WIDTH 16.4 % (11.6-13.7); WHITE BLOOD COUNT (AUTO) 3.6 K/uL (4.8-10.8)
[2024-05-08 07:29] LABS: ANION GAP 18.1 (8-16); CALCIUM 8.9 mg/dL (8.5-10.1); CARBON DIOXIDE 25.5 mmol/L (21-32); POTASSIUM 4.6 mmol/L (3.5-5.1)
[2024-05-08 07:34] LABS: CREATININE 10.7 mg/dL (0.6-1.3)
[2024-05-08 08:00] VITALS: BP 184/93; PULSE 79; PULSE 83; RESP 19; RESP 20; TEMP 97.5; TEMP 98.2; O2SAT 97
[2024-05-08 13:41] VITALS: BP 178/72
[2024-05-08 16:00] VITALS: BP 196/84; PULSE 84; RESP 20; TEMP 98; O2SAT 97
[2024-05-08 20:00] VITALS: BP 127/72; PULSE 80; RESP 18; RESP 19; TEMP 98.1; O2SAT 96; O2SAT 97
[2024-05-08 20:37] VITALS: PULSE 81; RESP 20; O2SAT 92
[2024-05-09] MEDS: ENALAPRILAT 2.5 MG/2 ML VIAL IVP PRN (05:45)
[2024-05-09 07:22] LABS: BASOPHILS % (AUTO) 0.7 % (0.0-2.0); EOSINOPHILS # (AUTO) 0.1 K/uL (0-0.4); EOSINOPHILS % (AUTO) 2.9 % (0.0-4.0); HEMATOCRIT 20.8 % (36-52); LYMPHOCYTES # (AUTO) 0.4 K/uL (2.0-11.5); MEAN CORPUSCULAR HEMOGLOBIN 27 pg (27-31); MEAN CORPUSCULAR HGB CONC 33 g/dL (33-37); MEAN CORPUSCULAR VOLUME 81.3 fL (80-94); MONOCYTES # (AUTO) 0.4 K/uL (0.8-1.0); MONOCYTES % (AUTO) 12.6 % (1.7-9.3); NEUTROPHILS # (AUTO) 2.2 K/uL (1.8-7.7); NEUTROPHILS % (AUTO) 70.8 % (42.2-75.2); PLATELET COUNT (AUTO) 114 K/uL (140-450); RED BLOOD CELL COUNT(AUTO) 2.56 MIL/uL (4.20-6.10); RED CELL DISTRIBUTION WIDTH 16.4 % (11.6-13.7); WHITE BLOOD COUNT (AUTO) 3.1 K/uL (4.8-10.8)
[2024-05-09 07:25] LABS: ANION GAP 18.2 (8-16); CALCIUM 8.8 mg/dL (8.5-10.1); CARBON DIOXIDE 25.1 mmol/L (21-32); POTASSIUM 5.3 mmol/L (3.5-5.1)
[2024-05-09 07:28] LABS: CREATININE 13.5 mg/dL (0.6-1.3)
[2024-05-09 08:00] VITALS: BP 183/83; PULSE 82; RESP 18; TEMP 97.2; TEMP 98; O2SAT 94
[2024-05-09 08:00] LABS: HEMOGLOBIN 6.8 g/dL (12.0-18.0)
[2024-05-09] MEDS: ACETAMINOPHEN 325 MG TAB PO SCH (12:10)
[2024-05-09 16:00] VITALS: BP 122/80; PULSE 77; RESP 18; TEMP 97.3; O2SAT 93
[2024-05-09 20:00] VITALS: BP 144/81; PULSE 76; RESP 18; RESP 19; TEMP 98; O2SAT 97; O2SAT 99
[2024-05-09 20:20] VITALS: O2SAT 96
[2024-05-10] MEDS: ZOLPIDEM 5 MG TAB PO PRN (00:05)
[2024-05-10 06:58] LABS: MEAN CORPUSCULAR HEMOGLOBIN 27 pg (27-31); MEAN CORPUSCULAR HGB CONC 33 g/dL (33-37); MEAN CORPUSCULAR VOLUME 80.6 fL (80-94); PLATELET COUNT (AUTO) 109 K/uL (140-450); RED BLOOD CELL COUNT(AUTO) 2.61 MIL/uL (4.20-6.10); WHITE BLOOD COUNT (AUTO) 2.7 K/uL (4.8-10.8)
[2024-05-10 07:03] LABS: ANION GAP 16.4 (8-16); CALCIUM 8.5 mg/dL (8.5-10.1); CARBON DIOXIDE 27.3 mmol/L (21-32); POTASSIUM 4.7 mmol/L (3.5-5.1)
[2024-05-10 07:15] LABS: CREATININE 12.7 mg/dL (0.6-1.3)
[2024-05-10 07:31] LABS: BASOPHILS % (MANUAL) 0 % (0-2); EOSINOPHILS % (MANUAL) 0 % (0-4); LYMPHOCYTES % (MANUAL) 23 % (20-46); MONOCYTES % (MANUAL) 17 % (5-12)
[2024-05-10 08:00] VITALS: BP 185/97; PULSE 76; RESP 16; TEMP 97.5; O2SAT 96
[2024-05-10 16:00] VITALS: BP 159/83; PULSE 80; RESP 18; TEMP 98.5; O2SAT 98
[2024-05-10 20:00] VITALS: TEMP 96.5
[2024-05-11] VITALS: BP 166/76; PULSE 82; RESP 18; TEMP 96.5; O2SAT 99
[2024-05-11 06:46] LABS: EOSINOPHILS % (AUTO) 4.1 % (0.0-4.0); LYMPHOCYTES # (AUTO) 0.8 K/uL (2.0-11.5); MONOCYTES # (AUTO) 0.5 K/uL (0.8-1.0); WHITE BLOOD COUNT (AUTO) 3.6 K/uL (4.8-10.8)
[2024-05-11 06:55] LABS: EOSINOPHILS # (AUTO) 0.2 K/uL (0-0.4); HEMATOCRIT 21.9 % (36-52); HEMOGLOBIN 7.2 g/dL (12.0-18.0); LYMPHOCYTES % (AUTO) 21.4 % (20.5-51.1); MEAN CORPUSCULAR HEMOGLOBIN 26 pg (27-31); MEAN CORPUSCULAR HGB CONC 33 g/dL (33-37); MEAN CORPUSCULAR VOLUME 79.8 fL (80-94); NEUTROPHILS # (AUTO) 2.2 K/uL (1.8-7.7); NEUTROPHILS % (AUTO) 60.5 % (42.2-75.2); PLATELET COUNT (AUTO) 140 K/uL (140-450); RED BLOOD CELL COUNT(AUTO) 2.75 MIL/uL (4.20-6.10); RED CELL DISTRIBUTION WIDTH 16.9 % (11.6-13.7)
[2024-05-11 07:17] LABS: ANION GAP 20.4 (8-16); CALCIUM 8.6 mg/dL (8.5-10.1); CARBON DIOXIDE 24.1 mmol/L (21-32); POTASSIUM 4.5 mmol/L (3.5-5.1)
[2024-05-11 07:21] LABS: CREATININE 14.5 mg/dL (0.6-1.3)
[2024-05-11 08:00] VITALS: BP 131/87; PULSE 90; RESP 18; TEMP 96.9; TEMP 97; O2SAT 93
[2024-05-11 16:00] VITALS: BP 141/81; PULSE 82; RESP 18; TEMP 97.4; O2SAT 99
[2024-05-11 20:00] VITALS: BP 172/70; PULSE 87; RESP 18; TEMP 97.3; O2SAT 99
[2024-05-11 22:00] VITALS: BP 146/83; PULSE 75
[2024-05-11] MEDS ORDERED: EPOETIN ALFA-EPBX 10,000 UNITS/ML VIAL IV SCH (22:55)
[2024-05-12 04:25] VITALS: BP 183/93; PULSE 87; RESP 18; TEMP 98.6; O2SAT 99
[2024-05-12 07:13] LABS: ANION GAP 20.3 (8-16); CALCIUM 8.9 mg/dL (8.5-10.1); CARBON DIOXIDE 25.5 mmol/L (21-32); POTASSIUM 4.8 mmol/L (3.5-5.1)
[2024-05-12 07:15] LABS: CREATININE 13.1 mg/dL (0.6-1.3)
[2024-05-12 07:39] LABS: BASOPHILS % (AUTO) 0.9 % (0.0-2.0); EOSINOPHILS # (AUTO) 0.2 K/uL (0-0.4); EOSINOPHILS % (AUTO) 4.7 % (0.0-4.0); HEMATOCRIT 21.9 % (36-52); HEMOGLOBIN 7.2 g/dL (12.0-18.0); LYMPHOCYTES # (AUTO) 0.7 K/uL (2.0-11.5); LYMPHOCYTES % (AUTO) 21.4 % (20.5-51.1); MEAN CORPUSCULAR HEMOGLOBIN 27 pg (27-31); MEAN CORPUSCULAR HGB CONC 33 g/dL (33-37); MEAN CORPUSCULAR VOLUME 81.7 fL (80-94); MONOCYTES # (AUTO) 0.4 K/uL (0.8-1.0); MONOCYTES % (AUTO) 11.6 % (1.7-9.3); NEUTROPHILS # (AUTO) 2.1 K/uL (1.8-7.7); NEUTROPHILS % (AUTO) 61.4 % (42.2-75.2); PLATELET COUNT (AUTO) 136 K/uL (140-450); RED BLOOD CELL COUNT(AUTO) 2.69 MIL/uL (4.20-6.10); RED CELL DISTRIBUTION WIDTH 17.1 % (11.6-13.7); WHITE BLOOD COUNT (AUTO) 3.5 K/uL (4.8-10.8)
[2024-05-12 08:00] VITALS: PULSE 76; RESP 18; O2SAT 97
[2024-05-12] MEDS: hydrALAZINE 10 MG TAB PO PRN (12:33)
[2024-05-12 16:00] VITALS: BP 162/78; PULSE 81; RESP 18; TEMP 97.8; O2SAT 97
[2024-05-12 20:00] VITALS: BP 151/78; PULSE 86; RESP 18; TEMP 97.7; O2SAT 98
[2024-05-12 21:02] VITALS: PULSE 98; RESP 22; O2SAT 96
[2024-05-12] MEDS: hydrALAZINE 10 MG TAB PO SCH (22:15)
[2024-05-12 22:30] VITALS: BP 108/65
[2024-05-13] VITALS (11 sets, daily range): BP systolic 113–177; BP diastolic 73–111; PULSE 76–90; RESP 8–20; TEMP 97.3–98.4; O2SAT 90–100
[2024-05-13] MEDS: guaiFENesin DM 200/20 MG-10 ML 10 ML UDC PO PRN (05:05)
[2024-05-13 06:14] LABS: BASOPHILS % (AUTO) 0.5 % (0.0-2.0); EOSINOPHILS # (AUTO) 0.2 K/uL (0-0.4); EOSINOPHILS % (AUTO) 4.8 % (0.0-4.0); HEMATOCRIT 21.8 % (36-52); HEMOGLOBIN 7.1 g/dL (12.0-18.0); LYMPHOCYTES # (AUTO) 0.8 K/uL (2.0-11.5); LYMPHOCYTES % (AUTO) 23.1 % (20.5-51.1); MEAN CORPUSCULAR HEMOGLOBIN 26 pg (27-31); MEAN CORPUSCULAR HGB CONC 33 g/dL (33-37); MEAN CORPUSCULAR VOLUME 80.8 fL (80-94); MONOCYTES # (AUTO) 0.3 K/uL (0.8-1.0); MONOCYTES % (AUTO) 7.8 % (1.7-9.3); NEUTROPHILS # (AUTO) 2.2 K/uL (1.8-7.7); NEUTROPHILS % (AUTO) 63.8 % (42.2-75.2); PLATELET COUNT (AUTO) 126 K/uL (140-450); RED CELL DISTRIBUTION WIDTH 17.2 % (11.6-13.7); WHITE BLOOD COUNT (AUTO) 3.5 K/uL (4.8-10.8)
[2024-05-13 06:34] LABS: ALBUMIN 3.4 g/dL (3.4-5.0); ANION GAP 22.7 (8-16); CARBON DIOXIDE 23.6 mmol/L (21-32); TOTAL BILIRUBIN 0.4 mg/dL (0.0-1.0); TOTAL PROTEIN, SERUM 7.6 g/dL (6.4-8.2)
[2024-05-13 06:36] LABS: CREATININE 15.1 mg/dL (0.6-1.3); POTASSIUM 6.3 mmol/L (3.5-5.1)
[2024-05-14] VITALS (9 sets, daily range): BP systolic 151–183; BP diastolic 93–94; PULSE 86–90; RESP 8–18; TEMP 97.1–209.1; O2SAT 93–97
[2024-05-14 06:55] LABS: BASOPHILS % (AUTO) 0.5 % (0.0-2.0); EOSINOPHILS # (AUTO) 0.2 K/uL (0-0.4); EOSINOPHILS % (AUTO) 4.5 % (0.0-4.0); HEMATOCRIT 27.8 % (36-52); HEMOGLOBIN 9.3 g/dL (12.0-18.0); LYMPHOCYTES # (AUTO) 0.9 K/uL (2.0-11.5); LYMPHOCYTES % (AUTO) 22.6 % (20.5-51.1); MEAN CORPUSCULAR HEMOGLOBIN 27 pg (27-31); MEAN CORPUSCULAR HGB CONC 33 g/dL (33-37); MEAN CORPUSCULAR VOLUME 81.9 fL (80-94); MONOCYTES # (AUTO) 0.4 K/uL (0.8-1.0); MONOCYTES % (AUTO) 11.5 % (1.7-9.3); NEUTROPHILS # (AUTO) 2.3 K/uL (1.8-7.7); NEUTROPHILS % (AUTO) 60.9 % (42.2-75.2); PLATELET COUNT (AUTO) 126 K/uL (140-450); RED BLOOD CELL COUNT(AUTO) 3.39 MIL/uL (4.20-6.10); RED CELL DISTRIBUTION WIDTH 17.1 % (11.6-13.7); WHITE BLOOD COUNT (AUTO) 3.8 K/uL (4.8-10.8)
[2024-05-14 07:42] LABS: ANION GAP 21.9 (8-16); CALCIUM 8.5 mg/dL (8.5-10.1); CARBON DIOXIDE 23.5 mmol/L (21-32); POTASSIUM 5.4 mmol/L (3.5-5.1)
[2024-05-14 07:46] LABS: CREATININE 12.6 mg/dL (0.6-1.3)
[2024-05-15] VITALS (7 sets, daily range): BP systolic 170–183; BP diastolic 86–89; PULSE 67–95; RESP 16–18; TEMP 95.8–207.9; O2SAT 91–98
[2024-05-15 06:33] LABS: BASOPHILS % (AUTO) 0.6 % (0.0-2.0); EOSINOPHILS # (AUTO) 0.2 K/uL (0-0.4); EOSINOPHILS % (AUTO) 4.9 % (0.0-4.0); HEMATOCRIT 29.1 % (36-52); HEMOGLOBIN 9.6 g/dL (12.0-18.0); LYMPHOCYTES # (AUTO) 0.9 K/uL (2.0-11.5); LYMPHOCYTES % (AUTO) 21.5 % (20.5-51.1); MEAN CORPUSCULAR HEMOGLOBIN 27 pg (27-31); MEAN CORPUSCULAR HGB CONC 33 g/dL (33-37); MEAN CORPUSCULAR VOLUME 82.4 fL (80-94); MONOCYTES # (AUTO) 0.5 K/uL (0.8-1.0); MONOCYTES % (AUTO) 11.9 % (1.7-9.3); NEUTROPHILS # (AUTO) 2.7 K/uL (1.8-7.7); NEUTROPHILS % (AUTO) 61.1 % (42.2-75.2); PLATELET COUNT (AUTO) 127 K/uL (140-450); RED BLOOD CELL COUNT(AUTO) 3.53 MIL/uL (4.20-6.10); RED CELL DISTRIBUTION WIDTH 17.5 % (11.6-13.7); WHITE BLOOD COUNT (AUTO) 4.3 K/uL (4.8-10.8)
[2024-05-15] MEDS: hydrALAZINE 20 MG/ML VIAL IVP PRN (08:59)
[2024-05-15] MEDS: HYDRAGUARD CREAM TP SCH (10:35)
[2024-05-15] MEDS: HYDRAGUARD CREAM TP ONE (10:35)
== END 2024-05-15 18:05 | disposition left against medical advice (07) | DRG 466 ==
LOC: MED 18:20 → MTU 22:52
PROVIDERS: ADMIT Student in an Organized Health Care Education/Training Program; ATTEND Student in an Organized Health Care Education/Training Program
PROC: 06HY33Z Insertion of Infusion Device into Lower Vein, Percutaneous Approach (ICD-10-PCS; principal; 2024-04-27)
PROC: 5A1D70Z Performance of Urinary Filtration, Intermittent, Less than 6 Hours Per Day (ICD-10-PCS; 2024-04-27)
PROC: 05JY3ZZ Inspection of Upper Vein, Percutaneous Approach (ICD-10-PCS; 2024-04-27)
PROC: 5A1D70Z Performance of Urinary Filtration, Intermittent, Less than 6 Hours Per Day (ICD-10-PCS; 2024-04-28)
PROC: 30233N1 Transfusion of Nonautologous Red Blood Cells into Peripheral Vein, Percutaneous Approach (ICD-10-PCS; 2024-04-28)
PROC: 5A1D70Z Performance of Urinary Filtration, Intermittent, Less than 6 Hours Per Day (ICD-10-PCS; 2024-04-29)
PROC: 5A1D70Z Performance of Urinary Filtration, Intermittent, Less than 6 Hours Per Day (ICD-10-PCS; 2024-05-02)
PROC: 5A1D70Z Performance of Urinary Filtration, Intermittent, Less than 6 Hours Per Day (ICD-10-PCS; 2024-05-04)
PROC: 5A1D70Z Performance of Urinary Filtration, Intermittent, Less than 6 Hours Per Day (ICD-10-PCS; 2024-05-05)
PROC: 5A1D70Z Performance of Urinary Filtration, Intermittent, Less than 6 Hours Per Day (ICD-10-PCS; 2024-05-07)
PROC: 5A1D70Z Performance of Urinary Filtration, Intermittent, Less than 6 Hours Per Day (ICD-10-PCS; 2024-05-09)
PROC: 5A1D70Z Performance of Urinary Filtration, Intermittent, Less than 6 Hours Per Day (ICD-10-PCS; 2024-05-11)
PROC: 5A1D70Z Performance of Urinary Filtration, Intermittent, Less than 6 Hours Per Day (ICD-10-PCS; 2024-05-13)
PROC: 5A1D70Z Performance of Urinary Filtration, Intermittent, Less than 6 Hours Per Day (ICD-10-PCS; 2024-05-15)
DX: T82.42XA Displacement of vascular dialysis catheter, initial encounter (principal); N18.6 End stage renal disease; N17.9 Acute kidney failure, unspecified; I13.2 Hypertensive heart and chronic kidney disease with heart failure and with stage 5 chronic kidney disease, or end stage renal disease; D61.818 Other pancytopenia; D63.8 Anemia in other chronic diseases classified elsewhere; E11.22 Type 2 diabetes mellitus with diabetic chronic kidney disease; E87.5 Hyperkalemia; E78.5 Hyperlipidemia, unspecified; I50.9 Heart failure, unspecified; E87.70 Fluid overload, unspecified; J44.9 Chronic obstructive pulmonary disease, unspecified; Y83.8 Other surgical procedures as the cause of abnormal reaction of the patient, or of later complication, without mention of misadventure at the time of the procedure; Z99.2 Dependence on renal dialysis; Z91.199 Patient's noncompliance with other medical treatment and regimen due to unspecified reason; Z89.511 Acquired absence of right leg below knee; Z79.01 Long term (current) use of anticoagulants; Z79.899 Other long term (current) drug therapy; Z79.51 Long term (current) use of inhaled steroids
CPT/HCPCS: 36415; 71045; 80048; 80053; 82948; 84100; 84132; 85025; 85610; 85730; 86886; 86900; 86901; 86920; 87040; 87077; 87081; 87086; 87186; 93970; 99285; J0360; J1644; J1815; J2001; J2250; J2997; J3010; J3490; P9016; Q0092; Q0163; Q5106